=== PATIENT | male | born 1930 | race Caucasian/White ===

== ENCOUNTER → 2016-07-05 | Outpatient (CLI) | payer MEDICARE ==
[2016-07-05 20:22] LABS: ANION GAP 11 (5-19); BLOOD UREA NITROGEN 40 mg/dL (7-20); CALCIUM 9.7 mg/dL (8.4-10.2); CARBON DIOXIDE 22 mmol/L (22-30); CHLORIDE 105 mmol/L (98-107); CREATININE RESULT 0.96 mg/dL (0.52-1.25); GLUCOSE 108 mg/dL (75-110); POTASSIUM 4.9 mmol/L (3.6-5.0); SODIUM 138.4 mmol/L (137-145)
== END ==
LOC: OD 17:28
PROVIDERS: ATTEND Urology
DX: N17.8 Other acute kidney failure (principal)
CPT/HCPCS: 36415; 80048

== ENCOUNTER 2016-07-29 17:38 | Emergency (ER) | payer MEDICARE ==
--- NOTE | 2016-07-29 18:42 | ER Document Report ---
ED Medical Screen (RME) - General Chief Complaint: Foot Pain Stated Complaint: WOUND ON HEEL Time Seen by Provider: 07/29/16 18:35 Notes: 36-year-old male patient with prior stroke and left hemiparesis who usually walks with a 4 footed cane. Family noted a wound on the left heel that has been draining some. Not known how long it has been there. Has the appearance of a blood blister. Patient is not a diabetic. Does take Aggrenox. I have greeted and performed a rapid initial assessment of this patient. A comprehensive ED assessment and evaluation of the patient, analysis of test results and completion of the medical decision making process will be conducted by additional ED providers. TRAVEL OUTSIDE OF THE [place] IN LAST 30 DAYS: No - Related Data Allergies/Adverse Reactions: captopril [Captopril] Allergy (Intermediate, Verified 07/29/16 17:55) RASH Chloroxine [From Capitrol] Allergy (Mild, Verified 07/29/16 17:55) Past Medical History - Past Medical History Cardiac Medical History: Reports: Hx Heart Attack, Hx Hypercholesterolemia, Hx Hypertension Endocrine Medical History: Reports: Hx Diabetes Mellitus Type 2 Renal/ Medical History: Denies: Hx Peritoneal Dialysis Past Surgical History: Reports: Hx Cardiac Catheterization, Hx Open Heart Surgery, Hx Tonsillectomy - Immunizations Hx Diphtheria, Pertussis, Tetanus Vaccination: Yes Physical Exam - Vital signs Vitals: Temp Pulse Resp BP Pulse Ox 97.4 F 86 20 122/73 95 07/29/16 17:56 07/29/16 17:56 07/29/16 17:56 07/29/16 17:56 07/29/16 17:56 Course - Vital Signs Vital signs: Temp Pulse Resp BP Pulse Ox 97.4 F 86 20 122/73 95 07/29/16 17:56 07/29/16 17:56 07/29/16 17:56 07/29/16 17:56 07/29/16 17:56
[2016-07-29 19:18] LABS: ABSOLUTE EOSINOPHILS # (AUTO) 0.2 10^3/uL (0.0-0.6); ABSOLUTE LYMPHOCYTES (AUTO) 2.1 10^3/uL (0.5-4.7); ABSOLUTE MONOCYTES (AUTO) 0.6 10^3/uL (0.1-1.4); ABSOLUTE NEUT (AUTO) 6.6 10^3/uL (1.7-8.2); BASOPHILS % (AUTO) 0.3 % (0-2); EOSINOPHILS % (AUTO) 2.1 % (0-6); HEMATOCRIT 37.2 % (37.9-51.0); HEMOGLOBIN 11.8 g/dL (13.5-17.0); HGB HCT DIFFERENCE -1.8; LYMPHOCYTES % (AUTO) 22.4 % (13-45); MEAN CORPUSCULAR HEMOGLOBIN 30.2 pg (27.0-33.4); MEAN CORPUSCULAR HGB CONC 31.7 g/dL (32.0-36.0); MEAN CORPUSCULAR VOLUME 95 fl (80-97); MONOCYTES % (AUTO) 6.4 % (3-13); RED BLOOD COUNT 3.91 10^6/uL (4.35-5.55); RED CELL DISTRIBUTION WIDTH 13.5 % (11.5-14.0); SEGMENTED NEUTROPHILS % (AUTO) 68.8 % (42-78); WHITE BLOOD COUNT 9.5 10^3/uL (4.0-10.5)
--- NOTE | 2016-07-29 19:32 | RADIOLOGY REPORT (SQ) ---
EXAM DESCRIPTION: FOOT LEFT COMPLETE COMPLETED DATE/TIME: 07/29/2016 7:24 pm REASON FOR STUDY: left heel blood blister, Left hemiplegia COMPARISON: None. NUMBER OF VIEWS: Three views. TECHNIQUE: AP, lateral and oblique radiographic images acquired of the left foot. LIMITATIONS: None. FINDINGS: MINERALIZATION: Osteopenia. BONES: No acute fracture or dislocation. No worrisome bone lesions. JOINTS: No effusions. SOFT TISSUES: No significant soft tissue swelling. No radiopaque foreign body. OTHER: No other significant finding. IMPRESSION: NO RADIOGRAPHIC EVIDENCE OF ACUTE INJURY. TECHNICAL DOCUMENTATION: JOB ID: [id number] [employer]- All Rights Reserved
[2016-07-29 19:34] LABS: ALANINE AMINOTRANSFERASE 29 U/L (21-72); ALBUMIN 3.9 g/dL (3.5-5.0); ALKALINE PHOSPHATASE 108 U/L (38-126); ANION GAP 12 (5-19); ASPARTATE AMINO TRANSFERASE 33 U/L (17-59); BILIRUBIN,DIRECT 0.3 mg/dL (0.0-0.4); BILIRUBIN,TOTAL 0.4 mg/dL (0.2-1.3); BLOOD UREA NITROGEN 38 mg/dL (7-20); CARBON DIOXIDE 25 mmol/L (22-30); CHLORIDE 105 mmol/L (98-107); CREATININE RESULT 1.14 mg/dL (0.52-1.25); GLUCOSE 110 mg/dL (75-110); SODIUM 141.8 mmol/L (137-145)
--- NOTE | 2016-07-29 21:46 | ER Document Report ---
ED General - General Chief Complaint: Foot Pain Stated Complaint: FOOT PAIN Time Seen by Provider: 07/29/16 18:35 Notes: Patient is an 86-year-old male who presents with familial concern regarding an increasing left heel wound. 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 His family does take care of him at home and has noted that the wound appears to be worsening over the last several weeks. They presented today due to some blistering of the area. They have not seen the primary care doctor regarding today's concerns. Denies any drainage or spreading redness from the area. The patient has not had any fever or constitutional symptoms. TRAVEL OUTSIDE OF THE [place] IN LAST 30 DAYS: No - Related Data Allergies/Adverse Reactions: captopril [Captopril] Allergy (Intermediate, Verified 07/29/16 17:55) RASH Chloroxine [From Capitrol] Allergy (Mild, Verified 07/29/16 17:55) Past Medical History - General Information source: Relative Cannot obtain history due to: Dementia - Social History Smoking Status: Never Smoker Chew tobacco use (# tins/day): No Frequency of alcohol use: None Drug Abuse: None Lives with: Family Family History: Reviewed & Not Pertinent Patient has suicidal ideation: No Patient has homicidal ideation: No - Past Medical History Cardiac Medical History: Reports: Hx Heart Attack, Hx Hypercholesterolemia, Hx Hypertension Endocrine Medical History: Reports: Hx Diabetes Mellitus Type 2 Renal/ Medical History: Denies: Hx Peritoneal Dialysis Past Surgical History: Reports: Hx Cardiac Catheterization, Hx Open Heart Surgery, Hx Tonsillectomy - Immunizations Hx Diphtheria, Pertussis, Tetanus Vaccination: Yes Review of Systems - Review of Systems -: Yes ROS unobtainable due to patient's medical condition Physical Exam - Vital signs Vitals: Temp Pulse Resp BP Pulse Ox 97.4 F 86 20 122/73 95 07/29/16 17:56 07/29/16 17:56 07/29/16 17:56 07/29/16 17:56 07/29/16 17:56 Interpretation: Normal Notes: PHYSICAL EXAMINATION: GENERAL: Frail, cachectic, no acute distress HEAD: Atraumatic, normocephalic. EYES: Pupils equal round and reactive to light, extraocular movements intact, sclera anicteric, conjunctiva are normal. ENT: nares patent, oropharynx clear without exudates. Moist mucous membranes. NECK: Normal range of motion, supple without lymphadenopathy LUNGS: Breath sounds clear to auscultation bilaterally and equal. No wheezes rales or rhonchi. HEART: Regular rate and rhythm without murmurs ABDOMEN: Soft, nontender, normoactive bowel sounds. No guarding, no rebound. No masses appreciated. EXTREMITIES: Normal range of motion, no pitting or edema. No cyanosis. NEUROLOGICAL: Left Hemiplegia. 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 Labs and x-ray are unremarkable without evidence of acute fracture or osteomyelitis. There is no evidence of associated infection of this chronic wound. It is demented and unable to provide meaningful history but his son at the bedside does relate that he is in bed 12-14 hours daily. I have encouraged the family to follow-up with the patient's primary care doctor as he likely needs a hospital bed, in-home services, and wound management. I have also referred to our wound care clinic for the left heel wound. The wound has been cleaned and dressed with a bulky, padded dressing here in the emergency department to try to prevent further breakdown. At this time will discharge with return precautions and follow-up recommendations. Verbal discharge instructions given a the bedside and opportunity for questions given. Medication warnings reviewed. Son is in agreement with this plan and has verbalized understanding of return precautions and the need for primary care follow-up in the next 24-72 hours. - Vital Signs Vital signs: Temp Pulse Resp BP Pulse Ox 97.4 F 86 20 185/94 H 85 L 07/29/16 17:56 07/29/16 17:56 07/29/16 17:56 07/29/16 22:00 07/29/16 22:15 - Laboratory Result Diagrams: 07/29/16 19:06 07/29/16 19:06 Laboratory results interpreted by me: 07/29/16 07/29/16 19:06 19:06 RBC 3.91 L Hgb 11.8 L Hct 37.2 L MCHC 31.7 L BUN 38 H - Diagnostic Test Radiology reviewed: Image reviewed, Reports reviewed Radiology results interpreted by me: 07/29/16 21:44 Left foot: No acute fracture or evidence of bony lesions Discharge - Discharge Clinical Impression: Hemiplegia affecting left nondominant side Qualifiers: Hemiplegia type: unspecified type Hemiplegia etiology: cerebrovascular Cerebrovascular disease type: unspecified type Qualified Code(s): I69.954 - Hemiplegia and hemiparesis following unspecified cerebrovascular disease affecting left non-dominant side Condition: Good Disposition: HOME, SELF-CARE Additional Instructions: Please follow-up with your primary care doctor as soon as possible to schedule improved in-home services for your father's mobility difficulties. Please keep the heel off of the bed surface to prevent further breakdown of the wound. Keep dressed with a bulky, padded dressing. Please follow-up with wound management at your earliest ability. Please return if the wound begins to have a foul odor, have purulent drainage, he noticed spreading redness from the area , or if he develops a fever greater than 100.4F. Referrals: MELISSA GALAN MD [Primary Care Provider] - Follow up as needed KAMARI OCHOA MD [ACTIVE STAFF] - Follow up as needed
[2016-07-29 22:25] VITALS: BP 185/94
== END 2016-07-29 22:24 | disposition home or self-care (01) ==
LOC: ER 17:38
DX: I69.954 Hemiplegia and hemiparesis following unspecified cerebrovascular disease affecting left non-dominant side (principal); M79.672 Pain in left foot
CPT/HCPCS: 36415; 80053; 85025; 99283

== ENCOUNTER 2016-08-15 14:15 | Emergency (ER) | payer MEDICARE ==
[2016-08-15] MEDS ORDERED: NORMAL SALINE 1000 ML 1,000 ML IV PRN (14:52)
--- NOTE | 2016-08-15 14:53 | ER Document Report ---
ED Medical Screen (RME) - General Chief Complaint: Shortness Of Breath Stated Complaint: RAPID HEART RATE,LEFT FOOT SWELLING Time Seen by Provider: 08/15/16 14:51 Mode of Arrival: Wheelchair Information source: Relative TRAVEL OUTSIDE OF THE [place] IN LAST 30 DAYS: No - HPI Patient complains to provider of: rapid heart rate Notes: 08/15/16 14:52 Patient is an 86-year-old male brought to the emergency room by son for complaints of rapid heart rate that he first noticed on last week, when his heart rate was 107, it is been up above 95 since then, he has had difficulty swallowing and throat pain, has had decreased p.o. intake over the past few days, and some vomiting a few days ago, he has had a nonproductive cough, no diarrhea, no fevers - Related Data Allergies/Adverse Reactions: captopril [Captopril] Allergy (Intermediate, Verified 08/15/16 14:24) RASH Chloroxine [From Capitrol] Allergy (Mild, Verified 08/15/16 14:24) Past Medical History - Past Medical History Cardiac Medical History: Reports: Hx Heart Attack, Hx Hypercholesterolemia, Hx Hypertension Endocrine Medical History: Reports: Hx Diabetes Mellitus Type 2 Renal/ Medical History: Denies: Hx Peritoneal Dialysis Past Surgical History: Reports: Hx Cardiac Catheterization, Hx Open Heart Surgery, Hx Tonsillectomy - Immunizations Hx Diphtheria, Pertussis, Tetanus Vaccination: Yes Physical Exam - Vital signs Vitals: Temp Pulse Resp BP Pulse Ox 97.9 F 94 20 114/60 98 08/15/16 14:24 08/15/16 14:24 08/15/16 14:24 08/15/16 14:24 08/15/16 14:24 Course - Vital Signs Vital signs: Temp Pulse Resp BP Pulse Ox 97.9 F 94 20 114/60 98 08/15/16 14:24 08/15/16 14:24 08/15/16 14:24 08/15/16 14:24 08/15/16 14:24
--- NOTE | 2016-08-15 15:18 | RADIOLOGY REPORT (SQ) ---
EXAM DESCRIPTION: CHEST SINGLE VIEW COMPLETED DATE/TIME: 08/15/2016 3:08 pm REASON FOR STUDY: cough COMPARISON: 09/29/2012 EXAM PARAMETERS: NUMBER OF VIEWS: One view. TECHNIQUE: Single frontal radiographic view of the chest acquired. RADIATION DOSE: NA LIMITATIONS: None. FINDINGS: LUNGS AND PLEURA: No opacities, masses or pneumothorax. No pleural effusion. MEDIASTINUM AND HILAR STRUCTURES: No masses. Contour normal. HEART AND VASCULAR STRUCTURES: Heart normal in size. Normal vasculature. BONES: No acute findings. HARDWARE: Sternotomy wires. OTHER: No other significant finding. IMPRESSION: NO ACUTE RADIOGRAPHIC FINDING IN THE CHEST. TECHNICAL DOCUMENTATION: JOB ID: [id number]
[2016-08-15 15:45] LABS: ABSOLUTE BASOPHILS # (AUTO) 0.1 10^3/uL (0.0-0.2); ABSOLUTE EOSINOPHILS # (AUTO) 0.2 10^3/uL (0.0-0.6); ABSOLUTE LYMPHOCYTES (AUTO) 2.1 10^3/uL (0.5-4.7); ABSOLUTE MONOCYTES (AUTO) 0.7 10^3/uL (0.1-1.4); ABSOLUTE NEUT (AUTO) 7.7 10^3/uL (1.7-8.2); BASOPHILS % (AUTO) 0.6 % (0-2); EOSINOPHILS % (AUTO) 2.1 % (0-6); HEMATOCRIT 37.7 % (37.9-51.0); HEMOGLOBIN 12.2 g/dL (13.5-17.0); HGB HCT DIFFERENCE -1.1; LYMPHOCYTES % (AUTO) 19.8 % (13-45); MEAN CORPUSCULAR HEMOGLOBIN 30.5 pg (27.0-33.4); MEAN CORPUSCULAR HGB CONC 32.3 g/dL (32.0-36.0); MEAN CORPUSCULAR VOLUME 94 fl (80-97); MONOCYTES % (AUTO) 6.2 % (3-13); RED BLOOD COUNT 4.01 10^6/uL (4.35-5.55); RED CELL DISTRIBUTION WIDTH 13.1 % (11.5-14.0); SEGMENTED NEUTROPHILS % (AUTO) 71.3 % (42-78); WHITE BLOOD COUNT 10.8 10^3/uL (4.0-10.5)
[2016-08-15 15:53] LABS: ALANINE AMINOTRANSFERASE 33 U/L (21-72); ALBUMIN 3.8 g/dL (3.5-5.0); ALKALINE PHOSPHATASE 101 U/L (38-126); ANION GAP 17 (5-19); ASPARTATE AMINO TRANSFERASE 44 U/L (17-59); BILIRUBIN,DIRECT 0.4 mg/dL (0.0-0.4); BILIRUBIN,TOTAL 0.5 mg/dL (0.2-1.3); BLOOD UREA NITROGEN 67 mg/dL (7-20); CALCIUM 10.3 mg/dL (8.4-10.2); CARBON DIOXIDE 23 mmol/L (22-30); CHLORIDE 110 mmol/L (98-107); CREATINE KINASE 249 U/L (55-170); CREATININE RESULT 1.25 mg/dL (0.52-1.25); GLUCOSE 114 mg/dL (75-110); POTASSIUM 4.2 mmol/L (3.6-5.0); SODIUM 149.8 mmol/L (137-145); TOTAL PROTEIN 8.3 g/dL (6.3-8.2)
[2016-08-15 16:04] LABS: CREATINE KINASE MB 2.26 ng/mL (<4.55)
[2016-08-15 16:17] LABS: TROPONIN I 0.037 ng/mL
[2016-08-15] MEDS ORDERED: NYSTATIN/DEXAMETH/DIPHEN SUSP 120 ML PO ONE (17:59)
--- NOTE | 2016-08-15 18:09 | ER Document Report ---
ED Respiratory Problem - General Mode of Arrival: Wheelchair Information source: Relative TRAVEL OUTSIDE OF THE [place] IN LAST 30 DAYS: No <BRADEN PALMA - Last Filed: 08/15/16 18:54> <ADELAIDA GUZMAN - Last Filed: 08/16/16 01:30> - General Chief Complaint: Shortness Of Breath Stated Complaint: RAPID HEART RATE,LEFT FOOT SWELLING Time Seen by Provider: 08/15/16 14:51 Notes: Patient is an 86 year old male who presents to the ER today with son and for 2 days of shortness of breath, 5 days of heart rate faster than normal, up to 104 bpm. Patient has no reason for shortness of breath and says that he does not have a history of asthma or COPD. Patient also has had some throat pain and has not been wanting to eat over the past week her son. They state that he does take thickened liquids due to risk of aspiration, they do have to thicken everything he drinks. He has not been wanting to eat any solids over the past week but has been taking his liquids. son denies that he has had any fever, chills, states the cough is not "that bad." And also complains that he is having some swelling to the left foot. Patient does have a history of this and is on Lasix 20 mg daily but then states that the left foot started swelling recently. (BRADEN PALMA) - Related Data Allergies/Adverse Reactions: captopril [Captopril] Allergy (Intermediate, Verified 08/15/16 18:22) RASH Chloroxine [From Capitrol] Allergy (Mild, Verified 08/15/16 18:22) Past Medical History - General Information source: Relative - Social History Smoking Status: Unknown if Ever Smoked Family History: Reviewed & Not Pertinent Patient has suicidal ideation: No Patient has homicidal ideation: No - Past Medical History Cardiac Medical History: Reports: Hx Heart Attack, Hx Hypercholesterolemia, Hx Hypertension Endocrine Medical History: Reports: Hx Diabetes Mellitus Type 2 Renal/ Medical History: Denies: Hx Peritoneal Dialysis Past Surgical History: Reports: Hx Cardiac Catheterization, Hx Open Heart Surgery, Hx Tonsillectomy - Immunizations Hx Diphtheria, Pertussis, Tetanus Vaccination: Yes <BRADEN PALMA - Last Filed: 08/15/16 18:54> Review of Systems - Review of Systems Constitutional: No symptoms reported EENT: No symptoms reported Cardiovascular: See HPI Respiratory: See HPI Gastrointestinal: No symptoms reported Genitourinary: No symptoms reported Male Genitourinary: No symptoms reported Musculoskeletal: No symptoms reported Skin: See HPI Hematologic/Lymphatic: No symptoms reported Neurological/Psychological: No symptoms reported <BRADEN PALMA - Last Filed: 08/15/16 18:54> Physical Exam <BRADEN PALMA - Last Filed: 08/15/16 18:54> <ADELAIDA GUZMAN - Last Filed: 08/16/16 01:30> - Vital signs Vitals: Temp Pulse Resp BP Pulse Ox 97.9 F 94 20 114/60 98 08/15/16 14:24 08/15/16 14:24 08/15/16 14:24 08/15/16 14:24 08/15/16 14:24 - Notes Notes: PHYSICAL EXAMINATION: GENERAL: demented, but in no acute distress. HEAD: Atraumatic, normocephalic. EYES: Pupils equal round and reactive to light, extraocular movements intact, sclera anicteric, conjunctiva are normal. ENT: oropharynx erythematous with white patches on tongue and soft palate, unable to be scraped off. Moist mucous membranes. airway patent NECK: Normal range of motion, supple without lymphadenopathy LUNGS: CTAB and equal. No wheezes rales or rhonchi. HEART: Regular rate and rhythm without murmurs ABDOMEN: Soft, no tenderness. No guarding, no rebound BACK: no vertebral tenderness, normal ROM GI/: no CVA tenderness EXTREMITIES: Normal range of motion, 1+ pitting edema to left dorsal foot. No cyanosis. NEUROLOGICAL: Cranial nerves grossly intact. Normal sensory/motor exams. PSYCH: Normal mood, normal affect. SKIN: Warm, Dry, normal turgor, pressure ulcer to left heel (BRADEN PALMA) Course - Laboratory Result Diagrams: 08/15/16 15:24 08/15/16 15:24 <BRADEN PALMA - Last Filed: 08/15/16 18:54> - Laboratory Result Diagrams: 08/15/16 15:24 08/15/16 15:24 <ADELAIDA GUZMAN - Last Filed: 08/16/16 01:30> - Re-evaluation Re-evalutation: 08/15/16 19:12 Part is unremarkable today except for some hypernatremia, CTA has been ordered due to patient's tachycardia and shortness of breath, first troponin is mildly elevated, however patient has a history of this, with patient history of heart attacks and multiple strokes however second troponin was ordered. At this time care has been handed over to LENORA Jones (BRADEN PALMA) Report received from braden peng. pt position adjusted. 08/16/16 Son reports patient seems more comfortable since tylenol. Attempted to obtain urine from patient, son does not want father to receive straight cath. Will continue to wait for patient to void. He has received 1 liter fluids. 08/16/16 01:28 Son reports patient is drinking more since magic mouthwash. CTA negative, Troponin increased from 0.037 to 0.050. no c/o chest pain. No SOB noted. UA with sp gravity 1.29, BUN 67. Dr. Nick per [facility] guidelines he agrees with discharge for patient treat for thrush encourage fluids. Discussed indeterminate cardiac enzymes with patient' s son. Son agrees that patient is not a candidate for cardiac interventions. Son was instructed on the importance of pushing fluids with his father keeping him well-hydrated. Son was instructed on Magic mouthwash. 08/16/16 01:30 (ADELAIDA GUZMAN) - Vital Signs Vital signs: Temp Pulse Resp BP Pulse Ox 97.9 F 94 27 H 134/61 H 95 08/15/16 14:24 08/15/16 14:24 08/15/16 21:00 08/15/16 19:02 08/15/16 21:00 - Laboratory Laboratory results interpreted by me: 08/15/16 08/15/16 08/15/16 15:24 15:24 23:45 WBC 10.8 H RBC 4.01 L Hgb 12.2 L Hct 37.7 L Sodium 149.8 H Chloride 110 H BUN 67 H Est GFR (Non-Af Amer) 55 L Glucose 114 H Calcium 10.3 H Creatine Kinase 249 H Total Protein 8.3 H Ur Leukocyte Esterase SMALL H Urine Ascorbic Acid 40 H Discharge <BRADEN PALMA - Last Filed: 08/15/16 18:54> <ADELAIDA GUZMAN - Last Filed: 08/16/16 01:30> - Discharge Clinical Impression: Shortness of breath, Thrush, oral Condition: Stable Disposition: HOME, SELF-CARE Instructions: Oral Thrush ([facility]), Dehydration ([facility]) Additional Instructions: *You have been evaluated for shortness of breath, increased heart rate, dehydration *The CTA was negative for an acute process *Follow up with Dr Rain tomorrow for recheck *Keep your father well hydrated *Magic mouthwash 5 ml four times a day *Return to ED for worsening condition, changes, needs
--- NOTE | 2016-08-15 18:53 | EKG REPORT ---
SEVERITY:- ABNORMAL ECG - SINUS RHYTHM VENTRICULAR PREMATURE COMPLEX INFERIOR INFARCT, AGE INDETERMINATE ANTEROLATERAL INFARCT, AGE INDETERMINATE BORDERLINE PROLONGED QT INTERVAL : Confirmed by: Maxime Call 15-Aug-2016 18:52:38
[2016-08-15] MEDS ORDERED: ACETAMINOPHEN 325 MG TABLET PO ONE (19:11)
--- NOTE | 2016-08-15 22:41 | RADIOLOGY REPORT (SQ) ---
EXAM DESCRIPTION: CTA CHEST COMPLETED DATE/TIME: 08/15/2016 10:28 pm REASON FOR STUDY: tachycardia, sob, no respiratory hx COMPARISON: None. TECHNIQUE: CT scan of the chest performed using helical scanning technique with dynamic intravenous contrast injection. Images reviewed with lung, soft tissue and bone windows. Reconstructed coronal and sagittal MPR images reviewed. Additional 3 dimensional post-processing performed to develop Maximal Intensity Projection images (IA P). All images stored on PACS. All CT scanners at this facility use dose modulation, iterative reconstruction, and/or weight based d osing when appropriate to reduce radiation dose to as low as reasonably achievable (ALARA). [facility]: Dose Right [facility]: CareDose [facility]: Dose Right [facility]: Teradose 4D [facility]: EquityLancer CONTRAST TYPE AND DOSE: contrast/concentration: Isovue 370.00 mg/ml; Total Contrast Delivered: 62.0 ml; Total Saline Delivered: 75.0 ml RENAL FUNCTION: BUN 67 creatinine 1.25. RADIATION DOSE: Up-to-date CT equipment and radiation dose reduction techniques were employed. CTDIv ol: 14.3 - 19.8 mGy. DLP: 469 mGy-cm. . LIMITATIONS: None. FINDINGS: LUNGS AND PLEURA: No masses, infiltrates, pneumothorax. No pleural effusions, calcificati ons. AORTA AND GREAT VESSELS: No aneurysm or dissection. HEART: No pericardial effusion. PULMONARY ARTERIES: No emboli visualized in the main pulmonary arteries or the segmental branches. HILAR AND MEDIASTINAL STRUCTURES: No identified masses or abnormal nodes. HARDWARE: None in the chest. UPPER ABDOMEN: No significant findings. Limited exam. THYROID AND OTHER SOFT TISSUES: No masses. No adenopathy. BONES: No acute or significant finding. 3D MIPS: Confirm above findings. OTHER: No other significant finding. IMPRESSION: NORMAL CTA OF THE CHEST. NO PULMONARY EMBOLI. TECHNICAL DOCUMENTATION: JOB ID: [id number] Quality ID # [id number]: Final reports with documentation of one or more dose reduction techniques (e.g., Au tomated exposure control, adjustment of the mA and/or kV according to patient size, use of iterative reconstruction technique) 2010 [email or web address]- All Rights Reserved
[2016-08-16 00:19] LABS: APPEARANCE,URINE CLOUDY; BILIRUBIN,URINE NEGATIVE (NEGATIVE); GLUCOSE, URINE NEGATIVE (NEGATIVE); KETONES,URINE NEGATIVE (NEGATIVE); LEUKOCYTE ESTERASE,URINE SMALL (NEGATIVE); NITRITE,URINE NEGATIVE (NEGATIVE); PROTEIN,URINE NEGATIVE (NEGATIVE); URINE SPECIFIC GRAVITY 1.029; UROBILINOGEN,URINE NEGATIVE mg/dL (<2.0)
[2016-08-16 02:11] VITALS: BP 136/65
== END 2016-08-16 02:35 | disposition home or self-care (01) ==
LOC: ER 14:15
DX: R06.02 Shortness of breath (principal); B37.0 Candidal stomatitis; R60.0 Localized edema; R07.0 Pain in throat; R05 Cough; R00.0 Tachycardia, unspecified; R74.8 Abnormal levels of other serum enzymes; E87.0 Hyperosmolality and hypernatremia; L89.629 Pressure ulcer of left heel, unspecified stage; I25.2 Old myocardial infarction; I10 Essential (primary) hypertension; F03.90 Unspecified dementia, unspecified severity, without behavioral disturbance, psychotic disturbance, mood disturbance, and anxiety; E11.9 Type 2 diabetes mellitus without complications; Z79.899 Other long term (current) drug therapy; Z88.3 Allergy status to other anti-infective agents; Z86.73 Personal history of transient ischemic attack (TIA), and cerebral infarction without residual deficits
CPT/HCPCS: 93005; 99285; 96360; 36415; 87040; 87086; 82553; 82550; 85025; 80053; 81001; 84484; 71010; 71275; 93010; A9270 ×2; J7030; J3490

== ENCOUNTER 2016-08-20 08:14 | Inpatient (IN) | payer MEDICARE ==
[2016-08-20] MEDS ORDERED: NORMAL SALINE 1000 ML 1,000 ML IV ONE ×2 (08:34→10:49)
--- NOTE | 2016-08-20 08:49 | ER Document Report ---
ED General - General Stated Complaint: VOMITING/WEAKNESS Time Seen by Provider: 08/20/16 08:22 Mode of Arrival: Ambulatory Information source: Patient Notes: 86-year-old male with history of recent diagnosis for thrush presents with complaints of continued thrush decreased oral intake for episodes of vomiting yesterday. Patient denies any fevers or chills Son notes patient does not ambulate and this is his baseline speech and presentation mentation yanez TRAVEL OUTSIDE OF THE [place] IN LAST 30 DAYS: No - HPI Onset: Last week Onset/Duration: Persistent Quality of pain: No pain Severity: Mild Pain Level: Denies Associated symptoms: Nausea, Vomiting, Weakness Exacerbated by: Denies Relieved by: Denies Similar symptoms previously: Yes Recently seen / treated by doctor: Yes - Related Data Allergies/Adverse Reactions: captopril [Captopril] Allergy (Intermediate, Verified 08/15/16 18:22) RASH Chloroxine [From Capitrol] Allergy (Mild, Verified 08/15/16 18:22) Past Medical History - Social History Smoking Status: Never Smoker Cigarette use (# per day): No Chew tobacco use (# tins/day): No Smoking Education Provided: No Family History: Reviewed & Not Pertinent - Past Medical History Cardiac Medical History: Reports: Hx Heart Attack, Hx Hypercholesterolemia, Hx Hypertension Endocrine Medical History: Reports: Hx Diabetes Mellitus Type 2 Renal/ Medical History: Denies: Hx Peritoneal Dialysis Past Surgical History: Reports: Hx Cardiac Catheterization, Hx Open Heart Surgery, Hx Tonsillectomy - Immunizations Hx Diphtheria, Pertussis, Tetanus Vaccination: Yes Review of Systems - Review of Systems Notes: REVIEW OF SYSTEMS: CONSTITUTIONAL : Denies fever, chills, or sweats. Denies recent illness. EENT: Denies eye, ear, throat, or mouth pain or symptoms. Denies nasal or sinus congestion or discharge. Admits to decreased ability to swallow secondary to pain CARDIOVASCULAR: Denies chest pain. Denies palpitations or racing or irregular heart beat. Denies ankle edema. RESPIRATORY: Denies cough, cold, or chest congestion. Denies shortness of breath, difficulty breathing, or wheezing. GASTROINTESTINAL: Admits to decreased oral intake nausea vomiting GENITOURINARY: Denies difficulty urinating, painful urination, burning, frequency, blood in urine, or discharge. MUSCULOSKELETAL: Denies back or neck pain or stiffness. Denies joint pain or swelling. SKIN: Denies rash, lesions or sores. HEMATOLOGIC : Denies easy bruising or bleeding. LYMPHATIC: Denies swollen, enlarged glands. NEUROLOGICAL: Denies confusion or altered mental status. Denies passing out or loss of consciousness. Denies dizziness or lightheadedness. Denies headache. Denies weakness or paralysis or loss of use of either side. Denies problems with gait or speech. Denies sensory loss, numbness, or tingling. Denies seizures. PSYCHIATRIC: Denies anxiety or stress. Denies depression, suicidal ideation, or homicidal ideation. ALL OTHER SYSTEMS REVIEWED AND NEGATIVE. Dictation was performed using [employer] voice recognition software PHYSICAL EXAMINATION: GENERAL: Cachectic frail appearing male contracted HEAD: Atraumatic, normocephalic. EYES: Pupils equal round and reactive to light, extraocular movements intact, sclera anicteric, conjunctiva are normal. ENT: Thrush noted dry tongue NECK: Normal range of motion, supple without lymphadenopathy LUNGS: Breath sounds clear to auscultation bilaterally and equal. No wheezes rales or rhonchi. HEART: Tachycardic ABDOMEN: Soft, nontender, nondistended abdomen. No guarding, no rebound. No masses appreciated. Musculoskeletal: Normal range of motion, no pitting or edema. No cyanosis. NEUROLOGICAL: Baseline mentation per son PSYCH: Normal mood, normal affect. SKIN: Warm, Dry, normal turgor, no rashes or lesions noted. Course - Re-evaluation Re-evalutation: 08/20/16 08:49 Patient was noted to be hypoxic on arrival, son notes he has been hypoxic intermittently but when he takes a deep breath his O2 sats go up, patient had a recent CTA x-ray on last visit and some questions any further imaging however since he was hypoxic here I do believe he requires an x-ray lab work and IV fluid 08/20/16 10:19 worsening hypernatremia , acute renal failure , elevated lactic acid noted. will hydrate and admit patient - Laboratory Result Diagrams: 08/20/16 09:15 08/20/16 09:15 Laboratory results interpreted by me: 08/20/16 08/20/16 08/20/16 09:15 09:15 09:15 WBC 13.1 H RBC 3.98 L Hgb 11.7 L Hct 36.9 L MCHC 31.8 L Seg Neutrophils % 83.6 H Lymphocytes % 11.1 L Absolute Neutrophils 11.0 H Sodium 152.7 H Chloride 113 H BUN 60 H Creatinine 1.56 H Est GFR ( Amer) 51 L Est GFR (Non-Af Amer) 42 L Glucose 148 H Lactic Acid 2.7 H Calcium 10.4 H - Diagnostic Test Radiology reviewed: Image reviewed, Reports reviewed Critical Care Note - Critical Care Note Total time excluding time spent on procedures (mins): 34 Comments: 34 minutes of critical care time spent in direct contact evaluating and reevaluating the patient, treating symptoms, reviewing labs and studies and speaking with family and consultants excluding any procedures Discharge - Discharge Clinical Impression: Hypernatremia, Dehydration Acute renal failure Qualifiers: Acute renal failure type: unspecified Qualified Code(s): N17.9 - Acute kidney failure, unspecified Urinary tract infection Qualifiers: Urinary tract infection type: acute cystitis Hematuria presence: without hematuria Qualified Code(s): N30.00 - Acute cystitis without hematuria Condition: Fair Disposition: ADMITTED INPATIENT Admitting Provider: Koffi Unit Admitted: Medical Floor
--- NOTE | 2016-08-20 09:20 | RADIOLOGY REPORT (SQ) ---
EXAM DESCRIPTION: CHEST SINGLE VIEW COMPLETED DATE/TIME: 08/20/2016 9:03 am REASON FOR STUDY: hypoxemia COMPARISON: 08/15/[address] chest. NUMBER OF VIEWS: One view. TECHNIQUE: Single frontal radiographic view of the chest acquired. LIMITATIONS: None. FINDINGS: LUNGS AND PLEURA: Mild right lower lobe volume loss. Minimal elevation right hemidiaphrag m, chronic. Lungs otherwise generally clear. No pneumothorax or developing pleural fluid. No new i nfiltrates. MEDIASTINUM AND HILAR STRUCTURES: Stable contours. Previous median sternotomy. No mass evident. HEART AND VASCULAR STRUCTURES: Stable heart size without evidence of failure. BONES: Osteopenic. No gross fracture. HARDWARE: None in the chest. OTHER: No other significant finding. IMPRESSION: Stable chest without acute cardiopulmonary disease evident. TECHNICAL DOCUMENTATION: JOB ID: [id number] [employer]- All Rights Reserved
[2016-08-20 09:40] LABS: VENOUS BLOOD BASE EXCESS -0.3 mmol/L; VENOUS BLOOD HCO3 25.8 mmol/L (20-32); VENOUS BLOOD PCO2 47.7 mmHg (35-63); VENOUS BLOOD PH 7.35 (7.30-7.42)
[2016-08-20 09:41] LABS: ABSOLUTE LYMPHOCYTES (AUTO) 1.5 10^3/uL (0.5-4.7); ABSOLUTE MONOCYTES (AUTO) 0.7 10^3/uL (0.1-1.4); BASOPHILS % (AUTO) 0.1 % (0-2); EOSINOPHILS % (AUTO) 0.1 % (0-6); HEMATOCRIT 36.9 % (37.9-51.0); HEMOGLOBIN 11.7 g/dL (13.5-17.0); HGB HCT DIFFERENCE -1.8; LYMPHOCYTES % (AUTO) 11.1 % (13-45); MEAN CORPUSCULAR HEMOGLOBIN 29.5 pg (27.0-33.4); MEAN CORPUSCULAR HGB CONC 31.8 g/dL (32.0-36.0); MEAN CORPUSCULAR VOLUME 93 fl (80-97); MONOCYTES % (AUTO) 5.1 % (3-13); RED BLOOD COUNT 3.98 10^6/uL (4.35-5.55); RED CELL DISTRIBUTION WIDTH 13.5 % (11.5-14.0); SEGMENTED NEUTROPHILS % (AUTO) 83.6 % (42-78); WHITE BLOOD COUNT 13.1 10^3/uL (4.0-10.5)
[2016-08-20 09:48] LABS: PROTHROMBIN TIME 15.3 SEC (11.4-15.4)
[2016-08-20 10:00] LABS: ALANINE AMINOTRANSFERASE 29 U/L (21-72); ALBUMIN 3.6 g/dL (3.5-5.0); ALKALINE PHOSPHATASE 105 U/L (38-126); ANION GAP 18 (5-19); ASPARTATE AMINO TRANSFERASE 37 U/L (17-59); BILIRUBIN,DIRECT 0.4 mg/dL (0.0-0.4); BILIRUBIN,TOTAL 0.6 mg/dL (0.2-1.3); BLOOD UREA NITROGEN 60 mg/dL (7-20); CALCIUM 10.4 mg/dL (8.4-10.2); CARBON DIOXIDE 22 mmol/L (22-30); CHLORIDE 113 mmol/L (98-107); CREATININE RESULT 1.56 mg/dL (0.52-1.25); GLUCOSE 148 mg/dL (75-110); POTASSIUM 4.4 mmol/L (3.6-5.0); SODIUM 152.7 mmol/L (137-145); TOTAL PROTEIN 7.8 g/dL (6.3-8.2)
[2016-08-20] MEDS ORDERED: CEFTRIAXONE 1 GM/D5W RTU 50 ML IV ONE (10:21)
[2016-08-20 11:00] LABS: APPEARANCE,URINE SLIGHTLY-CLOUDY; BILIRUBIN,URINE NEGATIVE (NEGATIVE); GLUCOSE, URINE NEGATIVE (NEGATIVE); KETONES,URINE NEGATIVE (NEGATIVE); LEUKOCYTE ESTERASE,URINE SMALL (NEGATIVE); NITRITE,URINE NEGATIVE (NEGATIVE); PROTEIN,URINE NEGATIVE (NEGATIVE); URINE SPECIFIC GRAVITY 1.015; UROBILINOGEN,URINE NEGATIVE mg/dL (<2.0)
[2016-08-20] MEDS ORDERED: MORPHINE SULFATE 10 MG/ML INJ IV ONE (12:03)
--- NOTE | 2016-08-20 13:42 | EKG REPORT ---
SEVERITY:- ABNORMAL ECG - SINUS TACHYCARDIA NONSPECIFIC INTRAVENTRICULAR CONDUCTION DELAY PROBABLE LVH WITH SECONDARY REPOL ABNRM : Confirmed by: Maxime Call 20-Aug-2016 13:41:59
[2016-08-20] MEDS ORDERED: DEXTROSE 5%-WATER 1000 ML 1,000 ML IV PRN (14:10)
[2016-08-20] MEDS ORDERED: ACETAMINOPHEN 325 MG TABLET PO PRN ×2 (17:25→18:49)
[2016-08-20] MEDS ORDERED: ACETAMINOPHEN 325 MG TABLET ONE (17:48)
[2016-08-20] MEDS ORDERED: FLUCONAZOLE 400 MG/NS RTU 200 ML IV ONE (19:39)
[2016-08-20] MEDS ORDERED: ERYTHROMYCIN 0.5% OPH OINTMENT 3.5 GM TUBE OU PRN (19:41)
[2016-08-20] MEDS ORDERED: GLUCAGON,HUMAN RECOMB 1 MG INJ SUBCUT PRN (19:44)
[2016-08-20] MEDS ORDERED: DEXTROSE 40% GEL 15 GM TUBE PO PRN ×2 (19:44)
[2016-08-20] MEDS ORDERED: DEXTROSE 50%-WATER 25 GM/50 ML DISP.SYRIN IV PRN ×2 (19:44)
[2016-08-20] MEDS ORDERED: NITROGLYCERIN 0.4 MG/TAB 25 TAB/BOTTLE SL PRN (19:45)
--- NOTE | 2016-08-20 20:25 | PDOC H&P ---
History of Present Illness Admission Date/PCP: 08/20/16 10:28 FRANCISCO BYNUM MD Patient complains of: Difficulty with swallowing and vomiting History of Present Illness: NYLA POLLOCK is a 86 year old male known to my practice who as brought to the ED by family due to worsening difficulty with swallowing. Son reported that patient have been vomiting food given to him almost immediately upon swallowing. He ws seem at the ED recently and prescribed Magic Mouth wash due to whitish lesion seen in his mouth. Son reported difficulty with administration of the medicine since procured. Patient has history of recurrent stroke with dysphasia. Son denied any significant aspiration, fever or chills. He has been on honey thicken fluid at home as precautions for aspiration following his stroke. 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 Past Medical History Cardiac Medical History: Reports: Myocardial Infarction, Hyperlipidema, Hypertension Endocrine Medical History: Reports: Diabetes Mellitus Type 2 Past Surgical History Past Surgical History: Reports: Cardiac Catheterization, Tonsillectomy Social History Smoking Status: Never Smoker Frequency of Alcohol Use: None Hx Recreational Drug Use: No Drugs: None Hx Prescription Drug Abuse: No - Advance Directive Resuscitation Status: Do Not Resuscitate - I had extensive discussion with son and daughter at bedside during my evaluation. The family at this time decided to make patient a DNR. This status will be maintained upon discharge from the hospital. Family History Family History: Reviewed & Not Pertinent Parental Family History Reviewed: Yes Children Family History Reviewed: Yes Sibling(s) Family History Reviewed.: Yes Medication/Allergy Home Medications: Acetaminophen [Tylenol Extra Strength 500 mg Tablet] 1,000 mg PO Q4HP PRN Aspirin [Ecotrin 325 mg EC Tablet] 325 mg PO BID 08/20/16 Atorvastatin Calcium [Lipitor 80 mg Tablet] 80 mg PO QHS 08/20/16 Collagenase Clostridium Hist. [Santyl Ointment 30 gm] 1 applic TOP DAILY Dipyridamole [Persantine 25 mg Tablet] 75 mg PO BID 08/20/16 Erythromycin Base [Erythromycin] 1 inch OU DAILYP PRN 08/20/16 Finasteride [Proscar 5 mg Tablet] 5 mg PO DAILY 08/20/16 Furosemide [Lasix 20 mg Tablet] 20 mg PO QAM 08/20/16 Levothyroxine Sodium [Synthroid] 75 mcg PO QAM 08/20/16 Metoprolol Succinate [Toprol Xl 25 mg Tab.sr] 25 mg PO QAM 08/20/16 Nitroglycerin [Nitrostat] 0.4 mg PO Q5M 08/20/16 Nut.tx.gluc.intoler,Lac-Fr,Soy [Glucerna] 8 oz PO TID 08/20/16 Omeprazole 20 mg PO QAM 08/20/16 Sennosides [Senna] 8.6 mg PO QAM 08/20/16 Starch [Thick-It] 1 packet PO MEALS 08/20/16 Tamsulosin HCl [Flomax 0.4 mg Cap.sr] 0.4 mg PO QPM 08/20/16 Trazodone HCl [Desyrel 50 mg Tablet] 25 mg PO QHS 08/20/16 Whey Protein Isolate [Beneprotein] 1 packet PO TID 08/20/16 Allergies/Adverse Reactions: captopril [Captopril] Allergy (Intermediate, Verified 08/20/16 14:51) RASH Chloroxine [From Capitrol] Allergy (Mild, Verified 08/20/16 14:51) Review of Systems ROS unobtainable: Due to mental status All systems: as per PMH Physical Exam Vital Signs: Temp Pulse Resp BP Pulse Ox 98.7 F 109 H 20 102/52 L 92 08/20/16 16:02 08/20/16 16:02 08/20/16 16:02 08/20/16 16:02 08/20/16 16:02 Intake & Output 08/19/16 08/20/16 08/21/16 06:59 06:59 06:59 Weight 47.9 kg General appearance: PRESENT: cooperative, disheveled, mild distress, thin Head exam: PRESENT: atraumatic, normocephalic Eye exam: PRESENT: conjunctiva pink, EOMI, PERRLA Mouth exam: PRESENT: moist - fairly Teeth exam: PRESENT: poor dentation Throat exam: PRESENT: post pharyngeal erythema - minimally no obvious oral thrush Respiratory exam: PRESENT: crackles - at lung bases, decreased breath sounds Cardiovascular exam: PRESENT: RRR. ABSENT: diastolic murmur, rubs, systolic murmur Vascular exam: PRESENT: normal capillary refill GI/Abdominal exam: PRESENT: normal bowel sounds, soft. ABSENT: distended, guarding, mass, organolmegaly, rebound, tenderness Rectal exam: PRESENT: deferred Extremities exam: ABSENT: pedal edema Neurological exam: PRESENT: altered Psychiatric exam: PRESENT: agitated - related to his dementia Skin exam: PRESENT: other - left heel pressure ulcer stage 3 Results Laboratory Results: 08/20/16 08/20/16 10:45 14:00 Lactic Acid 1.0 Urine Color YELLOW Urine Appearance SLIGHTLY-CLOUDY Urine pH 5.0 Ur Specific [place] 1.015 Urine Protein NEGATIVE Urine Glucose (UA) NEGATIVE Urine Ketones NEGATIVE Urine Blood NEGATIVE Urine Nitrite NEGATIVE Ur Leukocyte Esterase SMALL H Urine WBC (Auto) 13 Urine RBC (Auto) 1 Impressions: Chest X-Ray 08/20/16 08:34 IMPRESSION: Stable chest without acute cardiopulmonary disease evident. Assessment & Plan - Diagnosis (1) Acute renal failure Qualifiers: Acute renal failure type: unspecified Qualified Code(s): N17.9 - Acute kidney failure, unspecified Is this a current diagnosis for this admission?: YesPlan: See admitting physician orders. (2) Dehydration Is this a current diagnosis for this admission?: YesPlan: See admitting physician orders (3) Hypernatremia Is this a current diagnosis for this admission?: YesPlan: See admitting physician orders (4) UTI (urinary tract infection) Qualifiers: Urinary tract infection type: acute cystitis Hematuria presence: without hematuria Qualified Code(s): N30.00 - Acute cystitis without hematuria Is this a current diagnosis for this admission?: YesPlan: See admitting physician orders (5) Thrush, oral Is this a current diagnosis for this admission?: YesPlan: See admitting physician orders (6) Shortness of breath Plan: See admitting physician orders (7) HTN (hypertension) Qualifiers: Hypertension type: essential hypertension Qualified Code(s): I10 - Essential (primary) hypertension Is this a current diagnosis for this admission?: YesPlan: See admitting physician orders (8) HLD (hyperlipidemia) Qualifiers: Hyperlipidemia type: pure hypercholesterolemia Qualified Code(s): E78.00 - Pure hypercholesterolemia, unspecified; E78.0 - Pure hypercholesterolemia Is this a current diagnosis for this admission?: YesPlan: See admitting physician orders (9) CAD (coronary artery disease) Qualifiers: Coronary Disease-Associated Artery/Lesion type: [place] artery Associated angina: without angina Is this a current diagnosis for this admission?: YesPlan: See admitting physician orders (10) Old CT (myocardial infarction) Is this a current diagnosis for this admission?: YesPlan: See admitting physician orders (11) Dementia, multi-infarct Qualifiers: Dementia behavioral disturbance: without behavioral disturbance Qualified Code(s): F01.50 - Vascular dementia without behavioral disturbance Is this a current diagnosis for this admission?: YesPlan: See admitting physician orders - Time Time Spent: Greater than 70 Minutes Medications reviewed and adjusted accordingly: Yes Anticipated discharge: Home with Homehealth Within: Other - Inpatient Certification Based on my medical assessment, after consideration of the patient's comorbidities, presenting symptoms, or acuity I expect that the services needed warrant INPATIENT care.: Yes I certify that my determination is in accordance with my understanding of Medicare's requirements for reasonable and necessary INPATIENT services [42 CFR 412.3e].: Yes Medical Necessity: Need Close Monitoring Due to Risk of Patient Decompensation, Need For IV Fluids, Need for IV Antibiotics, Risk of Diagnosis Which Will Require Inpatient Eval/Care/Monitoring Post Hospital Care: D/C Special Needs Librarian Documentation - Plan Summary Plan Summary: See admitting physician orders
[2016-08-20] MEDS ORDERED: FLUCONAZOLE 400 MG/NS RTU 400 MG/200 ML RTUPB IV ONE (20:31)
[2016-08-20 20:36] LABS: PARTIAL THROMBOPLASTIN TIME 27.2 SEC (23.5-35.8)
[2016-08-21 05:03] LABS: ABSOLUTE LYMPHOCYTES (AUTO) 1.2 10^3/uL (0.5-4.7); ABSOLUTE MONOCYTES (AUTO) 0.4 10^3/uL (0.1-1.4); ABSOLUTE NEUT (AUTO) 7.4 10^3/uL (1.7-8.2); BASOPHILS % (AUTO) 0.2 % (0-2); EOSINOPHILS % (AUTO) 0.1 % (0-6); HEMATOCRIT 28.7 % (37.9-51.0); HGB HCT DIFFERENCE -1.4; LYMPHOCYTES % (AUTO) 12.8 % (13-45); MEAN CORPUSCULAR HEMOGLOBIN 29.7 pg (27.0-33.4); MEAN CORPUSCULAR HGB CONC 31.8 g/dL (32.0-36.0); MEAN CORPUSCULAR VOLUME 94 fl (80-97); MONOCYTES % (AUTO) 4.9 % (3-13); RED BLOOD COUNT 3.06 10^6/uL (4.35-5.55); RED CELL DISTRIBUTION WIDTH 13.4 % (11.5-14.0)
[2016-08-21 05:09] LABS: HEMOGLOBIN 9.1 g/dL (13.5-17.0)
[2016-08-21 05:13] LABS: ALANINE AMINOTRANSFERASE 40 U/L (21-72); ALBUMIN 2.4 g/dL (3.5-5.0); ALKALINE PHOSPHATASE 72 U/L (38-126); ANION GAP 11 (5-19); ASPARTATE AMINO TRANSFERASE 34 U/L (17-59); BILIRUBIN,DIRECT 0.3 mg/dL (0.0-0.4); BILIRUBIN,TOTAL 0.4 mg/dL (0.2-1.3); BLOOD UREA NITROGEN 41 mg/dL (7-20); CALCIUM 9.1 mg/dL (8.4-10.2); CARBON DIOXIDE 18 mmol/L (22-30); CHLORIDE 118 mmol/L (98-107); GLUCOSE 139 mg/dL (75-110); POTASSIUM 3.8 mmol/L (3.6-5.0); SODIUM 147.4 mmol/L (137-145); TOTAL PROTEIN 5.9 g/dL (6.3-8.2)
[2016-08-21] MEDS: LANSOPRAZOLE 30 MG TAB.RAP.DR PO SCH (06:09)
[2016-08-21] MEDS: DEXTROSE 5%-NORMAL SALINE 1,000 ML IV PRN ×2 (06:42→17:48)
--- NOTE | 2016-08-21 11:12 | PDOC PROGRESS REPORT ---
Subjective Progress Note for:: 08/21/16 Subjective:: Patient remain NPO. No recurrent vomiting. Maintain on IV fluid, IV Diflucan and Rocephin coverage. No reported fever. Physical Exam Vital Signs: Temp Pulse Resp BP Pulse Ox 97.6 F 63 15 111/84 96 08/21/16 07:22 08/21/16 07:22 08/21/16 07:22 08/21/16 07:22 08/21/16 07:22 Intake & Output 08/20/16 08/21/16 08/22/16 06:59 06:59 06:59 Intake Total 1217 Output Total 400 Balance 817 Weight 55.7 kg General appearance: PRESENT: no acute distress, cooperative Head exam: PRESENT: atraumatic, normocephalic Eye exam: PRESENT: conjunctiva pink, EOMI, PERRLA. ABSENT: scleral icterus Mouth exam: PRESENT: moist Respiratory exam: PRESENT: clear to auscultation prudencio, decreased breath sounds - at lung bases. Cardiovascular exam: PRESENT: RRR. ABSENT: diastolic murmur, rubs, systolic murmur GI/Abdominal exam: PRESENT: normal bowel sounds, soft. ABSENT: distended, guarding, mass, organolmegaly, rebound, tenderness Extremities exam: ABSENT: pedal edema Neurological exam: PRESENT: altered - due to base line dementia but approprite in simple responses Psychiatric exam: PRESENT: appropriate affect Skin exam: PRESENT: dry, warm, other - left heel pressure ulcer Results Laboratory Results: 08/21/16 03:49 08/21/16 03:49 08/21/16 08/21/16 03:49 03:49 WBC 9.0 RBC 3.06 L Hgb 9.1 L D Hct 28.7 L MCV 94 MCH 29.7 MCHC 31.8 L RDW 13.4 Plt Count 164 Seg Neutrophils % 82.0 H Lymphocytes % 12.8 L Monocytes % 4.9 Eosinophils % 0.1 Basophils % 0.2 Absolute Neutrophils 7.4 Absolute Lymphocytes 1.2 Absolute Monocytes 0.4 Absolute Eosinophils 0.0 Absolute Basophils 0.0 Sodium 147.4 H Potassium 3.8 Chloride 118 H Carbon Dioxide 18 L Anion Gap 11 BUN 41 H Creatinine 1.10 Est GFR ( Amer) > 60 Est GFR (Non-Af Amer) > 60 Glucose 139 H Calcium 9.1 Total Bilirubin 0.4 AST 34 ALT 40 Alkaline Phosphatase 72 Total Protein 5.9 L Albumin 2.4 L Impressions: Chest X-Ray 08/20/16 08:34 IMPRESSION: Stable chest without acute cardiopulmonary disease evident. Assessment & Plan - Diagnosis (1) Acute renal failure Qualifiers: Acute renal failure type: unspecified Qualified Code(s): N17.9 - Acute kidney failure, unspecified Is this a current diagnosis for this admission?: YesPlan: Improving renal indices. See attending physician orders. (2) Dehydration Is this a current diagnosis for this admission?: Yes (3) Hypernatremia Is this a current diagnosis for this admission?: YesPlan: Improving with IV fluid hydration. See attending physician orders. (4) UTI (urinary tract infection) Qualifiers: Urinary tract infection type: acute cystitis Hematuria presence: without hematuria Qualified Code(s): N30.00 - Acute cystitis without hematuria Is this a current diagnosis for this admission?: YesPlan: See attending physician orders. (5) Thrush, oral Is this a current diagnosis for this admission?: YesPlan: See attending physician orders. (6) Shortness of breath Plan: Improving. See attending physician orders. (7) HTN (hypertension) Qualifiers: Hypertension type: essential hypertension Qualified Code(s): I10 - Essential (primary) hypertension Is this a current diagnosis for this admission?: Yes (8) HLD (hyperlipidemia) Qualifiers: Hyperlipidemia type: pure hypercholesterolemia Qualified Code(s): E78.00 - Pure hypercholesterolemia, unspecified; E78.0 - Pure hypercholesterolemia Is this a current diagnosis for this admission?: Yes (9) CAD (coronary artery disease) Qualifiers: Coronary Disease-Associated Artery/Lesion type: [place] artery Associated angina: without angina Is this a current diagnosis for this admission?: Yes (10) Old [place] (myocardial infarction) Is this a current diagnosis for this admission?: Yes (11) Dementia, multi-infarct Qualifiers: Dementia behavioral disturbance: without behavioral disturbance Qualified Code(s): F01.50 - Vascular dementia without behavioral disturbance Is this a current diagnosis for this admission?: Yes - Time Time Spent with patient: 25-34 minutes Medications reviewed and adjusted accordingly: Yes Anticipated discharge: Other Within: Other - Inpatient Certification Medical Necessity: Need Close Monitoring Due to Risk of Patient Decompensation, Need For IV Fluids, Need For Continuous Telemetry Monitoring, Need for IV Antibiotics, Risk of Complication if Not Cared For in Hospital Post Hospital Care: D/C Field Professional Documentation - Plan Summary Plan Summary: Continue current medication management. See attending physician orders.
[2016-08-21] MEDS: ENOXAPARIN SODIUM INJ 30 MG/0.3 ML DISP.SYRIN SUBCUT SCH (11:46)
[2016-08-21] MEDS: CEFTRIAXONE 1 GM/D5W RTU 50 ML IV SCH (11:46)
[2016-08-21] MEDS: COLLAGENASE CLOSTRIDIUM HIST. OINT 30 GM TOP SCH (11:47)
[2016-08-21] MEDS: FLUCONAZOLE 200 MG/NS RTU 100 ML IV SCH (14:40)
[2016-08-22 05:15] LABS: ABSOLUTE EOSINOPHILS # (AUTO) 0.2 10^3/uL (0.0-0.6); ABSOLUTE LYMPHOCYTES (AUTO) 1.4 10^3/uL (0.5-4.7); ABSOLUTE MONOCYTES (AUTO) 0.4 10^3/uL (0.1-1.4); ABSOLUTE NEUT (AUTO) 5.5 10^3/uL (1.7-8.2); BASOPHILS % (AUTO) 0.2 % (0-2); EOSINOPHILS % (AUTO) 2.6 % (0-6); HEMATOCRIT 28.4 % (37.9-51.0); HEMOGLOBIN 9.1 g/dL (13.5-17.0); HGB HCT DIFFERENCE -1.1; MEAN CORPUSCULAR HEMOGLOBIN 30.1 pg (27.0-33.4); MEAN CORPUSCULAR VOLUME 94 fl (80-97); MONOCYTES % (AUTO) 5.7 % (3-13); RED BLOOD COUNT 3.02 10^6/uL (4.35-5.55); RED CELL DISTRIBUTION WIDTH 13.2 % (11.5-14.0); SEGMENTED NEUTROPHILS % (AUTO) 73.5 % (42-78); WHITE BLOOD COUNT 7.5 10^3/uL (4.0-10.5)
[2016-08-22] MEDS: LANSOPRAZOLE 30 MG TAB.RAP.DR PO SCH (05:15)
[2016-08-22 05:27] LABS: ANION GAP 9 (5-19); BLOOD UREA NITROGEN 26 mg/dL (7-20); CALCIUM 9.3 mg/dL (8.4-10.2); CARBON DIOXIDE 19 mmol/L (22-30); CHLORIDE 124 mmol/L (98-107); CREATININE RESULT 0.94 mg/dL (0.52-1.25); GLUCOSE 111 mg/dL (75-110); POTASSIUM 3.8 mmol/L (3.6-5.0); SODIUM 151.6 mmol/L (137-145)
[2016-08-22] MEDS: MORPHINE SULFATE 10 MG/ML INJ IV PRN ×3 (09:30→17:34)
--- NOTE | 2016-08-22 09:31 | PDOC PROGRESS REPORT ---
Subjective Progress Note for:: 08/22/16 Subjective:: Patient remain NPO. Speech pathologist evaluation this morning confirm high risk of aspiration. Family reported administration of puree diet with nectar thicken fluid at home. Main aspiration precaution was feeding upright in a wheelchair. No recurrent vomiting. Maintain on IV fluid, IV Diflucan and Rocephin coverage. No reported fever. Physical Exam Vital Signs: Temp Pulse Resp BP Pulse Ox 98.0 F 80 12 138/42 H 100 08/22/16 07:41 08/22/16 07:41 08/22/16 07:41 08/22/16 07:41 08/22/16 07:41 Intake & Output 08/21/16 08/22/16 08/23/16 06:59 06:59 06:59 Intake Total 1217 2300 Output Total 400 1075 Balance 817 1225 Weight 55.7 kg Physical Exam: General appearance: PRESENT: no acute distress, cooperative Head exam: PRESENT: atraumatic, normocephalic Eye exam: PRESENT: conjunctiva pink, EOMI, PERRLA. ABSENT: scleral icterus Mouth exam: PRESENT: moist Respiratory exam: PRESENT: clear to auscultation prudencio, decreased breath sounds - at lung bases. Cardiovascular exam: PRESENT: RRR. ABSENT: diastolic murmur, rubs, systolic murmur GI/Abdominal exam: PRESENT: normal bowel sounds, soft. ABSENT: distended, guarding, mass, organomegaly, rebound, tenderness Extremities exam: ABSENT: pedal edema Neurological exam: PRESENT: altered - due to base line dementia but approprite in simple responses Psychiatric exam: PRESENT: appropriate affect Skin exam: PRESENT: dry, warm, other - left heel pressure ulcer Results Laboratory Results: 08/22/16 04:04 08/22/16 04:04 08/22/16 08/22/16 04:04 04:04 WBC 7.5 RBC 3.02 L Hgb 9.1 L Hct 28.4 L MCV 94 MCH 30.1 MCHC 32.0 RDW 13.2 Plt Count 164 Seg Neutrophils % 73.5 Lymphocytes % 18.0 Monocytes % 5.7 Eosinophils % 2.6 Basophils % 0.2 Absolute Neutrophils 5.5 Absolute Lymphocytes 1.4 Absolute Monocytes 0.4 Absolute Eosinophils 0.2 Absolute Basophils 0.0 Sodium 151.6 H Potassium 3.8 Chloride 124 H Carbon Dioxide 19 L Anion Gap 9 BUN 26 H Creatinine 0.94 Est GFR ( Amer) > 60 Est GFR (Non-Af Amer) > 60 Glucose 111 H Calcium 9.3 Impressions: Chest X-Ray 08/20/16 08:34 IMPRESSION: Stable chest without acute cardiopulmonary disease evident. Assessment & Plan - Diagnosis (1) Acute renal failure Qualifiers: Acute renal failure type: unspecified Qualified Code(s): N17.9 - Acute kidney failure, unspecified Is this a current diagnosis for this admission?: Yes (2) Dehydration Is this a current diagnosis for this admission?: Yes (3) Hypernatremia Is this a current diagnosis for this admission?: Yes (4) UTI (urinary tract infection) Qualifiers: Urinary tract infection type: acute cystitis Hematuria presence: without hematuria Qualified Code(s): N30.00 - Acute cystitis without hematuria Is this a current diagnosis for this admission?: Yes (5) Thrush, oral Is this a current diagnosis for this admission?: Yes (7) HTN (hypertension) Qualifiers: Hypertension type: essential hypertension Qualified Code(s): I10 - Essential (primary) hypertension Is this a current diagnosis for this admission?: Yes (8) HLD (hyperlipidemia) Qualifiers: Hyperlipidemia type: pure hypercholesterolemia Qualified Code(s): E78.00 - Pure hypercholesterolemia, unspecified; E78.0 - Pure hypercholesterolemia Is this a current diagnosis for this admission?: Yes (9) CAD (coronary artery disease) Qualifiers: Coronary Disease-Associated Artery/Lesion type: [place] artery Associated angina: without angina Is this a current diagnosis for this admission?: Yes (10) Old [place] (myocardial infarction) Is this a current diagnosis for this admission?: Yes (11) Dementia, multi-infarct Qualifiers: Dementia behavioral disturbance: without behavioral disturbance Qualified Code(s): F01.50 - Vascular dementia without behavioral disturbance Is this a current diagnosis for this admission?: Yes - Time Time Spent with patient: 25-34 minutes Medications reviewed and adjusted accordingly: Yes Anticipated discharge: Home with Homehealth Within: Other - Inpatient Certification Medical Necessity: Need Close Monitoring Due to Risk of Patient Decompensation, Need For IV Fluids, Need For Continuous Telemetry Monitoring, Risk of Complication if Not Cared For in Hospital Post Hospital Care: D/C Slicing Machine Operator/Tender Documentation - Plan Summary Plan Summary: see attending physician note.
[2016-08-22] MEDS: CEFTRIAXONE 1 GM/D5W RTU 50 ML IV SCH (10:26)
[2016-08-22] MEDS: NYSTATIN 500000 UNIT/5 ML UDCUP PO SCH ×4 (10:26→22:15)
[2016-08-22] MEDS: ENOXAPARIN SODIUM INJ 30 MG/0.3 ML DISP.SYRIN SUBCUT SCH (10:27)
[2016-08-22] MEDS: FLUCONAZOLE 200 MG/NS RTU 100 ML IV SCH (11:11)
[2016-08-22] MEDS: COLLAGENASE CLOSTRIDIUM HIST. OINT 30 GM TOP SCH (11:33)
[2016-08-22] MEDS: TRAZODONE HCL 50 MG TABLET PO SCH (22:15)
[2016-08-23] MEDS: MORPHINE SULFATE 10 MG/ML INJ IV PRN ×4 (01:04→22:33)
[2016-08-23] MEDS: LANSOPRAZOLE 30 MG TAB.RAP.DR PO SCH (05:28)
[2016-08-23] MEDS: ENOXAPARIN SODIUM INJ 30 MG/0.3 ML DISP.SYRIN SUBCUT SCH (09:12)
[2016-08-23] MEDS: FLUCONAZOLE 200 MG/NS RTU 100 ML IV SCH (09:12)
[2016-08-23] MEDS: CEFTRIAXONE 1 GM/D5W RTU 50 ML IV SCH (09:13)
[2016-08-23] MEDS: NYSTATIN 500000 UNIT/5 ML UDCUP PO SCH ×4 (09:13→22:13)
[2016-08-23] MEDS: COLLAGENASE CLOSTRIDIUM HIST. OINT 30 GM TOP SCH (09:19)
--- NOTE | 2016-08-23 20:15 | PDOC PROGRESS REPORT ---
Subjective Progress Note for:: 08/23/16 Subjective:: Patient is tolerating puree diet with feeding assistance. There is single episode of vomiting after breakfast with copious mucous secretion. Urine culture did grew Misa species. Patient remain on IV Diflucan therapy. No reported fever. Maintain on IV Rocephin and fluid support. Physical Exam Vital Signs: Temp Pulse Resp BP Pulse Ox 98.6 F 74 13 157/70 H 97 08/23/16 16:01 08/23/16 19:00 08/23/16 16:01 08/23/16 16:01 08/23/16 16:01 Intake & Output 08/22/16 08/23/16 08/24/16 06:59 06:59 06:59 Intake Total 2300 4638 996 Output Total 1075 500 Balance 1225 4138 996 Weight 58.8 kg Physical Exam: General appearance: PRESENT: no acute distress, cooperative Head exam: PRESENT: atraumatic, normocephalic Eye exam: PRESENT: conjunctiva pink, EOMI, PERRLA. ABSENT: scleral icterus Mouth exam: PRESENT: moist Respiratory exam: PRESENT: clear to auscultation prudencio, decreased breath sounds - at lung bases. Cardiovascular exam: PRESENT: RRR. ABSENT: diastolic murmur, rubs, systolic murmur GI/Abdominal exam: PRESENT: normal bowel sounds, soft. ABSENT: distended, guarding, mass, organomegaly, rebound, tenderness Extremities exam: ABSENT: pedal edema Neurological exam: PRESENT: altered - due to base line dementia but appropriate in simple responses Psychiatric exam: PRESENT: appropriate affect Skin exam: PRESENT: dry, warm, other - left heel pressure ulcer Results Laboratory Results: 08/22/16 04:04 08/22/16 04:04 Impressions: Chest X-Ray 08/20/16 08:34 IMPRESSION: Stable chest without acute cardiopulmonary disease evident. Assessment & Plan - Diagnosis (1) Acute renal failure Qualifiers: Acute renal failure type: unspecified Qualified Code(s): N17.9 - Acute kidney failure, unspecified Is this a current diagnosis for this admission?: YesPlan: Improving renal indices. See attending physician orders. (2) Dehydration Is this a current diagnosis for this admission?: YesPlan: See admitting physician orders (3) Hypernatremia Is this a current diagnosis for this admission?: YesPlan: Improving with IV fluid hydration. See attending physician orders. (4) UTI (urinary tract infection) Qualifiers: Urinary tract infection type: acute cystitis Hematuria presence: without hematuria Qualified Code(s): N30.00 - Acute cystitis without hematuria Is this a current diagnosis for this admission?: YesPlan: See attending physician orders. Urine culture suggested Misa species as causative organism. (5) Thrush, oral Is this a current diagnosis for this admission?: YesPlan: See attending physician orders. Probably related to his UTI infection. (6) Shortness of breath Plan: Improving. See attending physician orders. (7) HTN (hypertension) Qualifiers: Hypertension type: essential hypertension Qualified Code(s): I10 - Essential (primary) hypertension Is this a current diagnosis for this admission?: YesPlan: See admitting physician orders (8) HLD (hyperlipidemia) Qualifiers: Hyperlipidemia type: pure hypercholesterolemia Qualified Code(s): E78.00 - Pure hypercholesterolemia, unspecified; E78.0 - Pure hypercholesterolemia Is this a current diagnosis for this admission?: YesPlan: See admitting physician orders (9) CAD (coronary artery disease) Qualifiers: Coronary Disease-Associated Artery/Lesion type: [place] artery Associated angina: without angina Is this a current diagnosis for this admission?: YesPlan: See admitting physician orders (10) Old [place] (myocardial infarction) Is this a current diagnosis for this admission?: YesPlan: See admitting physician orders (11) Dementia, multi-infarct Qualifiers: Dementia behavioral disturbance: without behavioral disturbance Qualified Code(s): F01.50 - Vascular dementia without behavioral disturbance Is this a current diagnosis for this admission?: YesPlan: See admitting physician orders - Time Time Spent with patient: 25-34 minutes Anticipated discharge: Home with Homehealth Within: Other - Inpatient Certification Medical Necessity: Need Close Monitoring Due to Risk of Patient Decompensation, Need For IV Fluids, Need for IV Antibiotics, Risk of Complication if Not Cared For in Hospital Post Hospital Care: D/C Social Science Professor Documentation - Plan Summary Plan Summary: Continue current mediation management. D/C accuchek.
[2016-08-23] MEDS: TRAZODONE HCL 50 MG TABLET PO SCH (22:13)
[2016-08-24] MEDS: LANSOPRAZOLE 30 MG TAB.RAP.DR PO SCH (05:12)
[2016-08-24 05:24] LABS: ABSOLUTE EOSINOPHILS # (AUTO) 0.2 10^3/uL (0.0-0.6); ABSOLUTE LYMPHOCYTES (AUTO) 2.2 10^3/uL (0.5-4.7); ABSOLUTE MONOCYTES (AUTO) 0.5 10^3/uL (0.1-1.4); ABSOLUTE NEUT (AUTO) 6.9 10^3/uL (1.7-8.2); BASOPHILS % (AUTO) 0.3 % (0-2); EOSINOPHILS % (AUTO) 2.1 % (0-6); HEMATOCRIT 29.6 % (37.9-51.0); HEMOGLOBIN 9.6 g/dL (13.5-17.0); HGB HCT DIFFERENCE -0.8; LYMPHOCYTES % (AUTO) 22.7 % (13-45); MEAN CORPUSCULAR HEMOGLOBIN 30.1 pg (27.0-33.4); MEAN CORPUSCULAR HGB CONC 32.4 g/dL (32.0-36.0); MEAN CORPUSCULAR VOLUME 93 fl (80-97); MONOCYTES % (AUTO) 4.9 % (3-13); RED BLOOD COUNT 3.18 10^6/uL (4.35-5.55); RED CELL DISTRIBUTION WIDTH 13.2 % (11.5-14.0); WHITE BLOOD COUNT 9.8 10^3/uL (4.0-10.5)
[2016-08-24 05:42] LABS: ANION GAP 8 (5-19); BLOOD UREA NITROGEN 11 mg/dL (7-20); CALCIUM 8.8 mg/dL (8.4-10.2); CARBON DIOXIDE 20 mmol/L (22-30); CHLORIDE 120 mmol/L (98-107); CREATININE RESULT 0.73 mg/dL (0.52-1.25); GLUCOSE 100 mg/dL (75-110); POTASSIUM 3.4 mmol/L (3.6-5.0); SODIUM 147.5 mmol/L (137-145)
[2016-08-24] MEDS: ACETAMINOPHEN 650 MG SUPP.RECT PR PRN (08:10)
[2016-08-24] MEDS: ENOXAPARIN SODIUM INJ 30 MG/0.3 ML DISP.SYRIN SUBCUT SCH (09:34)
[2016-08-24] MEDS: CEFTRIAXONE 1 GM/D5W RTU 50 ML IV SCH (09:34)
[2016-08-24] MEDS: NYSTATIN 500000 UNIT/5 ML UDCUP PO SCH ×4 (09:34→21:24)
[2016-08-24] MEDS: COLLAGENASE CLOSTRIDIUM HIST. OINT 30 GM TOP SCH (10:59)
[2016-08-24] MEDS: MORPHINE SULFATE 10 MG/ML INJ IV PRN ×3 (11:01→20:41)
[2016-08-24] MEDS: FLUCONAZOLE 200 MG/NS RTU 100 ML IV SCH (11:01)
[2016-08-24] MEDS: DEXTROSE 5%-NORMAL SALINE 1,000 ML IV PRN (11:02)
--- NOTE | 2016-08-24 11:23 | PDOC PROGRESS REPORT ---
Subjective Progress Note for:: 08/24/16 Subjective:: No reported fever. Patient remain on IV Diflucan and IV Rocephin. He remain on IV fluid support. Patient is tolerating puree diet with feeding assistance. No reported recurrent vomiting. Physical Exam Vital Signs: Temp Pulse Resp BP Pulse Ox 98.2 F 76 16 149/63 H 100 08/24/16 07:24 08/24/16 07:24 08/24/16 07:24 08/24/16 07:24 08/24/16 07:24 Intake & Output 08/23/16 08/24/16 08/25/16 06:59 06:59 06:59 Intake Total 4638 2196 Output Total 500 220 Balance 4138 1976 Weight 58.8 kg Physical Exam: General appearance: PRESENT: no acute distress, cooperative Head exam: PRESENT: atraumatic, normocephalic Eye exam: PRESENT: conjunctiva pink, EOMI, PERRLA. ABSENT: scleral icterus Mouth exam: PRESENT: moist Respiratory exam: PRESENT: clear to auscultation prudencio, decreased breath sounds - at lung bases. Cardiovascular exam: PRESENT: RRR. ABSENT: diastolic murmur, rubs, systolic murmur GI/Abdominal exam: PRESENT: normal bowel sounds, soft. ABSENT: distended, guarding, mass, organomegaly, rebound, tenderness Extremities exam: ABSENT: pedal edema Neurological exam: PRESENT: altered - due to base line dementia but appropriate in simple responses Psychiatric exam: PRESENT: appropriate affect Skin exam: PRESENT: dry, warm, other - left heel pressure ulcer Results Laboratory Results: 08/24/16 04:26 08/24/16 04:26 08/24/16 08/24/16 04:26 04:26 WBC 9.8 RBC 3.18 L Hgb 9.6 L Hct 29.6 L MCV 93 MCH 30.1 MCHC 32.4 RDW 13.2 Plt Count 183 Seg Neutrophils % 70.0 Lymphocytes % 22.7 Monocytes % 4.9 Eosinophils % 2.1 Basophils % 0.3 Absolute Neutrophils 6.9 Absolute Lymphocytes 2.2 Absolute Monocytes 0.5 Absolute Eosinophils 0.2 Absolute Basophils 0.0 Sodium 147.5 H Potassium 3.4 L Chloride 120 H Carbon Dioxide 20 L Anion Gap 8 BUN 11 Creatinine 0.73 Est GFR ( Amer) > 60 Est GFR (Non-Af Amer) > 60 Glucose 100 Calcium 8.8 Impressions: Chest X-Ray 08/20/16 08:34 IMPRESSION: Stable chest without acute cardiopulmonary disease evident. Assessment & Plan - Diagnosis (1) Acute renal failure Qualifiers: Acute renal failure type: unspecified Qualified Code(s): N17.9 - Acute kidney failure, unspecified Is this a current diagnosis for this admission?: Yes (2) Dehydration Is this a current diagnosis for this admission?: Yes (3) Hypernatremia Is this a current diagnosis for this admission?: Yes (4) UTI (urinary tract infection) Qualifiers: Urinary tract infection type: acute cystitis Hematuria presence: without hematuria Qualified Code(s): N30.00 - Acute cystitis without hematuria Is this a current diagnosis for this admission?: Yes (5) HTN (hypertension) Qualifiers: Hypertension type: essential hypertension Qualified Code(s): I10 - Essential (primary) hypertension Is this a current diagnosis for this admission?: Yes (6) HLD (hyperlipidemia) Qualifiers: Hyperlipidemia type: pure hypercholesterolemia Qualified Code(s): E78.00 - Pure hypercholesterolemia, unspecified; E78.0 - Pure hypercholesterolemia Is this a current diagnosis for this admission?: Yes (7) CAD (coronary artery disease) Qualifiers: Coronary Disease-Associated Artery/Lesion type: [place] artery Associated angina: without angina Is this a current diagnosis for this admission?: Yes (8) Old [place] (myocardial infarction) Is this a current diagnosis for this admission?: Yes (9) Dementia, multi-infarct Qualifiers: Dementia behavioral disturbance: without behavioral disturbance Qualified Code(s): F01.50 - Vascular dementia without behavioral disturbance Is this a current diagnosis for this admission?: Yes - Time Time Spent with patient: 25-34 minutes Medications reviewed and adjusted accordingly: Yes Anticipated discharge: Home with Homehealth Within: Other - Inpatient Certification Based on my medical assessment, after consideration of the patient's comorbidities, presenting symptoms, or acuity I expect that the services needed warrant INPATIENT care.: Yes I certify that my determination is in accordance with my understanding of Medicare's requirements for reasonable and necessary INPATIENT services [42 CFR 412.3e].: Yes Medical Necessity: Need Close Monitoring Due to Risk of Patient Decompensation, Need For IV Fluids, Need For Continuous Telemetry Monitoring, Need for IV Antibiotics, Risk of Complication if Not Cared For in Hospital Post Hospital Care: D/C Complaints Coordinator Documentation - Plan Summary Plan Summary: See attending physician orders. He will receive potassium replacement. Obtain serum magnesium level.
[2016-08-24] MEDS: POTASSI CL 20 MEQ/50 ML RIDER 20 MEQ/50 ML RTUPB IV SCH ×2 (12:28→14:08)
[2016-08-24] MEDS: TRAZODONE HCL 50 MG TABLET PO SCH (20:42)
[2016-08-25] MEDS: MORPHINE SULFATE 10 MG/ML INJ IV PRN ×5 (01:40→22:00)
[2016-08-25] MEDS: LANSOPRAZOLE 30 MG TAB.RAP.DR PO SCH (05:58)
[2016-08-25 07:15] LABS: ANION GAP 6 (5-19); BLOOD UREA NITROGEN 9 mg/dL (7-20); CALCIUM 8.4 mg/dL (8.4-10.2); CARBON DIOXIDE 22 mmol/L (22-30); CHLORIDE 119 mmol/L (98-107); GLUCOSE 103 mg/dL (75-110); POTASSIUM 3.7 mmol/L (3.6-5.0); SODIUM 146.9 mmol/L (137-145)
[2016-08-25] MEDS: DEXTROSE 5%-NORMAL SALINE 1,000 ML IV PRN (07:53)
[2016-08-25] MEDS: CEFTRIAXONE 1 GM/D5W RTU 50 ML IV SCH (10:43)
[2016-08-25] MEDS: NYSTATIN 500000 UNIT/5 ML UDCUP PO SCH ×4 (10:43→21:59)
[2016-08-25] MEDS: ENOXAPARIN SODIUM INJ 30 MG/0.3 ML DISP.SYRIN SUBCUT SCH (10:43)
[2016-08-25] MEDS: FLUCONAZOLE 200 MG/NS RTU 100 ML IV SCH (12:44)
[2016-08-25] MEDS: COLLAGENASE CLOSTRIDIUM HIST. OINT 30 GM TOP SCH (12:44)
--- NOTE | 2016-08-25 19:50 | PDOC PROGRESS REPORT ---
Subjective Progress Note for:: 08/25/16 Subjective:: Son at bedside. There has been excessive salivation and secretion with problem expectorating. Patient is not compliant with oropharyngeal suctioning effort. No reported fever. Feeding has been difficult as per son so far today. Mainly taking minimal ensure orally. No reported recurrent vomiting. Physical Exam Vital Signs: Temp Pulse Resp BP Pulse Ox 98.6 F 125 H 18 152/71 H 96 08/25/16 16:00 08/25/16 16:00 08/25/16 16:00 08/25/16 16:00 08/25/16 16:00 Intake & Output 08/24/16 08/25/16 08/26/16 06:59 06:59 06:59 Intake Total 2196 2870 1470 Output Total 220 835 Balance 1976 2034 1470 Physical Exam: General appearance: PRESENT: no acute distress, cooperative Head exam: PRESENT: atraumatic, normocephalic Eye exam: PRESENT: conjunctiva pink, EOMI, PERRLA. ABSENT: scleral icterus Mouth exam: PRESENT: moist, excessive saliva and secretion collection. Respiratory exam: PRESENT: clear to auscultation prudencio, decreased breath sounds - at lung bases. Cardiovascular exam: PRESENT: RRR. ABSENT: diastolic murmur, rubs, systolic murmur GI/Abdominal exam: PRESENT: normal bowel sounds, soft. ABSENT: distended, guarding, mass, organomegaly, rebound, tenderness Extremities exam: ABSENT: pedal edema Neurological exam: PRESENT: altered - due to base line dementia but appropriate in simple responses Psychiatric exam: PRESENT: appropriate affect Skin exam: PRESENT: dry, warm, other - left heel pressure ulcer Results Laboratory Results: 08/24/16 04:26 08/25/16 06:36 08/25/16 06:36 Sodium 146.9 H Potassium 3.7 Chloride 119 H Carbon Dioxide 22 Anion Gap 6 BUN 9 Creatinine 0.70 Est GFR ( Amer) > 60 Est GFR (Non-Af Amer) > 60 Glucose 103 Calcium 8.4 Impressions: Chest X-Ray 08/20/16 08:34 IMPRESSION: Stable chest without acute cardiopulmonary disease evident. Assessment & Plan - Diagnosis (1) Acute renal failure Qualifiers: Acute renal failure type: unspecified Qualified Code(s): N17.9 - Acute kidney failure, unspecified Is this a current diagnosis for this admission?: YesPlan: Improving renal indices. See attending physician orders. (2) Dehydration Is this a current diagnosis for this admission?: YesPlan: See admitting physician orders. I shelly decrease IV fluid rate to 50 mL / hour (3) Hypernatremia Is this a current diagnosis for this admission?: Yes (4) UTI (urinary tract infection) Qualifiers: Urinary tract infection type: acute cystitis Hematuria presence: without hematuria Qualified Code(s): N30.00 - Acute cystitis without hematuria Is this a current diagnosis for this admission?: YesPlan: See attending physician orders. Urine culture suggested Misa species as causative organism. (5) HTN (hypertension) Qualifiers: Hypertension type: essential hypertension Qualified Code(s): I10 - Essential (primary) hypertension Is this a current diagnosis for this admission?: Yes (6) HLD (hyperlipidemia) Qualifiers: Hyperlipidemia type: pure hypercholesterolemia Qualified Code(s): E78.00 - Pure hypercholesterolemia, unspecified; E78.0 - Pure hypercholesterolemia Is this a current diagnosis for this admission?: Yes (7) CAD (coronary artery disease) Qualifiers: Coronary Disease-Associated Artery/Lesion type: [place] artery Associated angina: without angina Is this a current diagnosis for this admission?: Yes (8) Old [place] (myocardial infarction) Is this a current diagnosis for this admission?: Yes (9) Dementia, multi-infarct Qualifiers: Dementia behavioral disturbance: without behavioral disturbance Qualified Code(s): F01.50 - Vascular dementia without behavioral disturbance Is this a current diagnosis for this admission?: Yes (10) Excessive oral secretions Is this a current diagnosis for this admission?: NoPlan: We will continue efforts at intermittent suctioning. Consider use of atropine 1 % solution 1 drop SL [id number] on prn basis to aide with control of excessive secretion. - Time Time Spent with patient: 35 or more minutes Medications reviewed and adjusted accordingly: Yes Anticipated discharge: Home with Homehealth Within: Other - Inpatient Certification Medical Necessity: Need Close Monitoring Due to Risk of Patient Decompensation, Need For IV Fluids, Need For Continuous Telemetry Monitoring, Need for IV Antibiotics, Risk of Complication if Not Cared For in Hospital Post Hospital Care: D/C Manager Psychology Documentation - Plan Summary Plan Summary: See attending physician orders.
[2016-08-25] MEDS: ATROPINE SULFATE 1% OPH SOLN 5 ML BOTTLE SL PRN (21:59)
[2016-08-25] MEDS: TRAZODONE HCL 50 MG TABLET PO SCH (21:59)
[2016-08-26] MEDS: LANSOPRAZOLE 30 MG TAB.RAP.DR PO SCH (05:13)
[2016-08-26] MEDS: ENOXAPARIN SODIUM INJ 30 MG/0.3 ML DISP.SYRIN SUBCUT SCH (09:54)
[2016-08-26] MEDS: MORPHINE SULFATE 10 MG/ML INJ IV PRN ×3 (09:54→19:51)
[2016-08-26] MEDS: NYSTATIN 500000 UNIT/5 ML UDCUP PO SCH ×4 (09:54→21:05)
[2016-08-26] MEDS: FLUCONAZOLE 200 MG/NS RTU 100 ML IV SCH (09:58)
--- NOTE | 2016-08-26 14:59 | PDOC PROGRESS REPORT ---
Subjective Progress Note for:: 08/26/16 Subjective:: No chest pain or difficulty with breathing. No fever or chills. No nausea, vomiting, or abdominal pain. Son at bedside. There is improvement in his excessive salivation and secretion with current therapy. P.O intake remain a challenge with poor appetite. Physical Exam Vital Signs: Temp Pulse Resp BP Pulse Ox 98.6 F 73 17 144/51 H 97 08/26/16 11:23 08/26/16 11:23 08/26/16 11:23 08/26/16 11:23 08/26/16 11:23 Intake & Output 08/25/16 08/26/16 08/27/16 06:59 06:59 06:59 Intake Total 2870 2270 Output Total 835 700 Balance 2035 1570 Weight 63.7 kg Physical Exam: General appearance: PRESENT: no acute distress, cooperative Head exam: PRESENT: atraumatic, normocephalic Eye exam: PRESENT: conjunctiva pink, EOMI, PERRLA. ABSENT: scleral icterus Mouth exam: PRESENT: moist. ABSENT: excessive saliva and secretion collection Respiratory exam: PRESENT: clear to auscultation prudencio, decreased breath sounds - at lung bases. Cardiovascular exam: PRESENT: RRR. ABSENT: diastolic murmur, rubs, systolic murmur GI/Abdominal exam: PRESENT: normal bowel sounds, soft. ABSENT: distended, guarding, mass, organomegaly, rebound, tenderness Extremities exam: ABSENT: pedal edema Neurological exam: PRESENT: altered - due to base line dementia but appropriate in simple responses Psychiatric exam: PRESENT: appropriate affect Skin exam: PRESENT: dry, warm, other - left heel pressure ulcer Results Laboratory Results: 08/24/16 04:26 08/25/16 06:36 Impressions: Chest X-Ray 08/20/16 08:34 IMPRESSION: Stable chest without acute cardiopulmonary disease evident. Assessment & Plan - Diagnosis (1) Acute renal failure Qualifiers: Acute renal failure type: unspecified Qualified Code(s): N17.9 - Acute kidney failure, unspecified Is this a current diagnosis for this admission?: Yes (2) Dehydration Is this a current diagnosis for this admission?: Yes (3) Hypernatremia Is this a current diagnosis for this admission?: Yes (4) UTI (urinary tract infection) Qualifiers: Urinary tract infection type: acute cystitis Hematuria presence: without hematuria Qualified Code(s): N30.00 - Acute cystitis without hematuria Is this a current diagnosis for this admission?: Yes (5) HTN (hypertension) Qualifiers: Hypertension type: essential hypertension Qualified Code(s): I10 - Essential (primary) hypertension Is this a current diagnosis for this admission?: Yes (6) HLD (hyperlipidemia) Qualifiers: Hyperlipidemia type: pure hypercholesterolemia Qualified Code(s): E78.00 - Pure hypercholesterolemia, unspecified; E78.0 - Pure hypercholesterolemia Is this a current diagnosis for this admission?: Yes (7) CAD (coronary artery disease) Qualifiers: Coronary Disease-Associated Artery/Lesion type: [place] artery Associated angina: without angina Is this a current diagnosis for this admission?: Yes (8) Old [place] (myocardial infarction) Is this a current diagnosis for this admission?: Yes (9) Dementia, multi-infarct Qualifiers: Dementia behavioral disturbance: without behavioral disturbance Qualified Code(s): F01.50 - Vascular dementia without behavioral disturbance Is this a current diagnosis for this admission?: Yes (10) Excessive oral secretions Is this a current diagnosis for this admission?: No (11) Adult failure to thrive syndrome Is this a current diagnosis for this admission?: YesPlan: Start on Multivitamin 5mL p.o daily. Encourage use of oral supplementation. - Time Time Spent with patient: 25-34 minutes Medications reviewed and adjusted accordingly: Yes Anticipated discharge: Home with Homehealth Within: Other - Inpatient Certification Medical Necessity: Need Close Monitoring Due to Risk of Patient Decompensation, Need For IV Fluids, Need For Continuous Telemetry Monitoring, Need for IV Antibiotics, Risk of Complication if Not Cared For in Hospital Post Hospital Care: D/C Emergency Medicine Medical Director Documentation - Plan Summary Plan Summary: See attending physician orders.
[2016-08-26] MEDS ORDERED: MULTIVITAMIN (INFANT) DROPS 50 ML PO SCH (15:00)
[2016-08-26] MEDS: COLLAGENASE CLOSTRIDIUM HIST. OINT 30 GM TOP SCH (15:04)
[2016-08-26] MEDS: DEXTROSE 5%-NORMAL SALINE 1,000 ML IV PRN (19:54)
[2016-08-26] MEDS: ATROPINE SULFATE 1% OPH SOLN 5 ML BOTTLE SL PRN (19:54)
[2016-08-26] MEDS: TRAZODONE HCL 50 MG TABLET PO SCH (21:06)
[2016-08-27] MEDS: MORPHINE SULFATE 10 MG/ML INJ IV PRN ×5 (02:27→21:00)
[2016-08-27] MEDS: LANSOPRAZOLE 30 MG TAB.RAP.DR PO SCH (05:12)
[2016-08-27] MEDS: NYSTATIN 500000 UNIT/5 ML UDCUP PO SCH ×4 (09:22→20:59)
[2016-08-27] MEDS: COLLAGENASE CLOSTRIDIUM HIST. OINT 30 GM TOP SCH (09:22)
[2016-08-27] MEDS: FLUCONAZOLE 200 MG/NS RTU 100 ML IV SCH (09:22)
[2016-08-27] MEDS: ENOXAPARIN SODIUM INJ 30 MG/0.3 ML DISP.SYRIN SUBCUT SCH (09:22)
[2016-08-27] MEDS ORDERED: (PENDING PHARMACY ID) (Acetaminophen [Tylenol Extra Strength 500 Mg Tablet] 1,000 MG) PO PRN (09:41)
[2016-08-27] MEDS ORDERED: NUT TX GLUC INTOLER LAC FR SOY PO SCH ×2 (10:00→11:00)
[2016-08-27] MEDS ORDERED: ACETAMINOPHEN 325 MG TABLET PO PRN (10:19)
[2016-08-27 10:56] LABS: ANION GAP 10 (5-19); BLOOD UREA NITROGEN 11 mg/dL (7-20); CALCIUM 8.6 mg/dL (8.4-10.2); CARBON DIOXIDE 20 mmol/L (22-30); CHLORIDE 111 mmol/L (98-107); CREATININE RESULT 0.77 mg/dL (0.52-1.25); GLUCOSE 108 mg/dL (75-110); POTASSIUM 4.4 mmol/L (3.6-5.0); SODIUM 140.6 mmol/L (137-145)
[2016-08-27] MEDS: FINASTERIDE 5 MG TABLET PO SCH (11:46)
[2016-08-27] MEDS ORDERED: SENNOSIDES/DOCUSATE 8.6-50 MG 1 EACH TABLET PO ONE (12:00)
[2016-08-27] MEDS ORDERED: METOPROLOL SUCCINATE 25 MG TAB.SR.24H PO ONE (12:45)
--- NOTE | 2016-08-27 14:57 | PDOC PROGRESS REPORT ---
Subjective Progress Note for:: 08/27/16 Subjective:: pt is doing same still poor appetite d/w family on bed side renal function is all stable Physical Exam Vital Signs: Temp Pulse Resp BP Pulse Ox 98.6 F 96 17 170/92 H 94 08/27/16 11:40 08/27/16 14:00 08/27/16 11:40 08/27/16 11:40 08/27/16 11:40 Intake & Output 08/26/16 08/27/16 08/28/16 06:59 06:59 06:59 Intake Total 2270 1727 330 Output Total 700 1200 400 Balance 1570 527 -70 Weight 63.7 kg 62.1 kg General appearance: PRESENT: no acute distress Eye exam: PRESENT: PERRLA Mouth exam: PRESENT: neck supple Respiratory exam: PRESENT: clear to auscultation prudencio Cardiovascular exam: PRESENT: +S1, +S2 Neurological exam: PRESENT: alert, awake Psychiatric exam: PRESENT: anxious Results Laboratory Results: 08/24/16 04:26 08/27/16 10:05 08/27/16 10:05 Sodium 140.6 Potassium 4.4 Chloride 111 H Carbon Dioxide 20 L Anion Gap 10 BUN 11 Creatinine 0.77 Est GFR ( Amer) > 60 Est GFR (Non-Af Amer) > 60 Glucose 108 Calcium 8.6 Impressions: Chest X-Ray 08/20/16 08:34 IMPRESSION: Stable chest without acute cardiopulmonary disease evident. Assessment & Plan - Diagnosis (1) Acute renal failure Qualifiers: Acute renal failure type: unspecified Qualified Code(s): N17.9 - Acute kidney failure, unspecified Is this a current diagnosis for this admission?: YesPlan: all resolving (2) Adult failure to thrive syndrome Is this a current diagnosis for this admission?: Yes (3) CAD (coronary artery disease) Qualifiers: Coronary Disease-Associated Artery/Lesion type: [place] artery Associated angina: without angina Is this a current diagnosis for this admission?: YesPlan: restat b omar (4) Dementia, multi-infarct Qualifiers: Dementia behavioral disturbance: without behavioral disturbance Qualified Code(s): F01.50 - Vascular dementia without behavioral disturbance Is this a current diagnosis for this admission?: YesPlan: d/w family if persist poor po intake (5) HLD (hyperlipidemia) Qualifiers: Hyperlipidemia type: pure hypercholesterolemia Qualified Code(s): E78.00 - Pure hypercholesterolemia, unspecified; E78.0 - Pure hypercholesterolemia Is this a current diagnosis for this admission?: Yes (6) HTN (hypertension) Qualifiers: Hypertension type: essential hypertension Qualified Code(s): I10 - Essential (primary) hypertension Is this a current diagnosis for this admission?: YesPlan: stable - Time Time Spent with patient: 15-24 minutes Anticipated discharge: SNF Within: Other - Inpatient Certification Medical Necessity: Need For IV Fluids Post Hospital Care: D/C Pole Framer Documentation - Plan Summary Plan Summary: cont curr med and still issue with poor intake consider tube fedding
[2016-08-27] MEDS: DEXTROSE 5%-NORMAL SALINE 1,000 ML IV PRN (16:55)
[2016-08-27] MEDS: TAMSULOSIN HCL 0.4 MG CAP.SR.24H PO SCH (17:58)
[2016-08-27] MEDS: ACETAMINOPHEN 650 MG SUPP.RECT PR PRN (17:58)
[2016-08-27] MEDS ORDERED: CEFEPIME 1 GM/D5W RTU 1 GM/50 ML RTUPB IV ONE (18:30)
--- NOTE | 2016-08-27 18:48 | RADIOLOGY REPORT (SQ) ---
EXAM DESCRIPTION: CHEST SINGLE VIEW COMPLETED DATE/TIME: 08/27/2016 6:37 pm REASON FOR STUDY: fever, cough COMPARISON: 08/20/2016 and 08/15/2016 EXAM PARAMETERS: NUMBER OF VIEWS: One view. TECHNIQUE: Single frontal radiographic view of the chest acquired. RADIATION DOSE: NA LIMITATIONS: Patient positioning precludes visualization of the right apical lung. FINDINGS: LUNGS AND PLEURA: Hazy opacification is seen of the left lower lung. The lungs are otherw ise clear and evenly aerated. No pneumothorax is evident given above limitations. No large pleural effusion is evident. MEDIASTINUM AND HILAR STRUCTURES: Stable. HEART AND VASCULAR STRUCTURES: Stable. BONES: No acute findings. HARDWARE: Median sternotomy wires. OTHER: No other significant finding. IMPRESSION: In the appropriate clinical setting, the development of left lung base pulmonary consoli dation may represent a developing pneumonia. Otherwise stable radiographic appearance of the chest. TECHNICAL DOCUMENTATION: JOB ID: [id number]
[2016-08-27] MEDS ORDERED: CEFEPIME INJ 1 GM VIAL ONE (18:57)
[2016-08-27] MEDS: TRAZODONE HCL 50 MG TABLET PO SCH (20:59)
[2016-08-28] MEDS: MORPHINE SULFATE 10 MG/ML INJ IV PRN ×3 (04:00→18:58)
[2016-08-28 05:14] LABS: ABSOLUTE EOSINOPHILS # (AUTO) 0.2 10^3/uL (0.0-0.6); ABSOLUTE LYMPHOCYTES (AUTO) 1.7 10^3/uL (0.5-4.7); ABSOLUTE MONOCYTES (AUTO) 0.4 10^3/uL (0.1-1.4); ABSOLUTE NEUT (AUTO) 8.7 10^3/uL (1.7-8.2); BASOPHILS % (AUTO) 0.3 % (0-2); EOSINOPHILS % (AUTO) 1.5 % (0-6); HEMATOCRIT 27.4 % (37.9-51.0); HEMOGLOBIN 8.8 g/dL (13.5-17.0); LYMPHOCYTES % (AUTO) 15.7 % (13-45); MEAN CORPUSCULAR HEMOGLOBIN 29.6 pg (27.0-33.4); MEAN CORPUSCULAR HGB CONC 32.1 g/dL (32.0-36.0); MEAN CORPUSCULAR VOLUME 92 fl (80-97); MONOCYTES % (AUTO) 3.7 % (3-13); RED BLOOD COUNT 2.97 10^6/uL (4.35-5.55); RED CELL DISTRIBUTION WIDTH 13.4 % (11.5-14.0); SEGMENTED NEUTROPHILS % (AUTO) 78.8 % (42-78)
[2016-08-28 05:28] LABS: ANION GAP 6 (5-19); BLOOD UREA NITROGEN 10 mg/dL (7-20); CALCIUM 8.6 mg/dL (8.4-10.2); CARBON DIOXIDE 23 mmol/L (22-30); CHLORIDE 111 mmol/L (98-107); CREATININE RESULT 0.77 mg/dL (0.52-1.25); GLUCOSE 107 mg/dL (75-110); SODIUM 140.1 mmol/L (137-145)
[2016-08-28] MEDS ORDERED: CEFEPIME 1 GM/D5W RTU 1 GM/50 ML RTUPB IV SCH (06:00)
[2016-08-28] MEDS: LANSOPRAZOLE 30 MG TAB.RAP.DR PO SCH (06:16)
[2016-08-28] MEDS ORDERED: CEFEPIME 1 GM/D5W RTU 1 GM/50 ML RTUPB IV ONE (06:20)
[2016-08-28] MEDS ORDERED: (PENDING PHARMACY ID) (Sennosides [Senna] 8.6 MG) PO SCH (08:00)
[2016-08-28] MEDS: SENNOSIDES/DOCUSATE 8.6-50 MG 1 EACH TABLET PO SCH (08:17)
[2016-08-28] MEDS: LANSOPRAZOLE 15 MG TAB.RAP.DR PO SCH (08:17)
[2016-08-28] MEDS: METOPROLOL SUCCINATE 25 MG TAB.SR.24H PO SCH (08:17)
[2016-08-28] MEDS: LEVOTHYROXINE SODIUM 0.075 MG TABLET PO SCH (08:17)
--- NOTE | 2016-08-28 09:57 | PDOC PROGRESS REPORT ---
Subjective Progress Note for:: 08/28/16 Subjective:: Patient is currently doing fair patient of the fever yesterday and patient have a fever workup done was consistent most likely aspirations pneumonia and patient was put on IV antibiotics and patient's remains fever free since yesterday. Patient is a very high risk of aspirations pneumonia will get the speech therapy evaluations to keep her n.p.o. until speech evaluations need to further discuss with the family about the patient's poor p.o. intake and the risk of aspirations and may be options for the G-tube placement Physical Exam Vital Signs: Temp Pulse Resp BP Pulse Ox 98.7 F 89 20 121/65 91 L 08/28/16 08:00 08/28/16 08:00 08/28/16 08:00 08/28/16 08:00 08/28/16 08:00 Intake & Output 08/27/16 08/28/16 08/29/16 06:59 06:59 06:59 Intake Total 1727 930 Output Total 1200 1420 Balance 527 -490 Weight 62.1 kg 62.1 kg General appearance: PRESENT: no acute distress Eye exam: PRESENT: PERRLA Respiratory exam: PRESENT: clear to auscultation prudencio Cardiovascular exam: PRESENT: +S1, +S2 GI/Abdominal exam: PRESENT: normal bowel sounds, soft Extremities exam: ABSENT: pedal edema Neurological exam: PRESENT: alert, awake Results Laboratory Results: 08/28/16 05:05 08/28/16 05:05 08/27/16 08/28/16 08/28/16 10:05 05:05 05:05 WBC 11.0 H RBC 2.97 L Hgb 8.8 L Hct 27.4 L MCV 92 MCH 29.6 MCHC 32.1 RDW 13.4 Plt Count 180 Seg Neutrophils % 78.8 H Lymphocytes % 15.7 Monocytes % 3.7 Eosinophils % 1.5 Basophils % 0.3 Absolute Neutrophils 8.7 H Absolute Lymphocytes 1.7 Absolute Monocytes 0.4 Absolute Eosinophils 0.2 Absolute Basophils 0.0 Sodium 140.6 140.1 Potassium 4.4 4.0 Chloride 111 H 111 H Carbon Dioxide 20 L 23 Anion Gap 10 6 BUN 11 10 Creatinine 0.77 0.77 Est GFR ( Amer) > 60 > 60 Est GFR (Non-Af Amer) > 60 > 60 Glucose 108 107 Calcium 8.6 8.6 Impressions: Chest X-Ray 08/27/16 00:00 IMPRESSION: In the appropriate clinical setting, the development of left lung base pulmonary consolidation may represent a developing pneumonia. Otherwise stable radiographic appearance of the chest. Assessment & Plan - Diagnosis (1) Acute renal failure Qualifiers: Acute renal failure type: unspecified Qualified Code(s): N17.9 - Acute kidney failure, unspecified Is this a current diagnosis for this admission?: YesPlan: Currently all better (2) Adult failure to thrive syndrome Is this a current diagnosis for this admission?: YesPlan: Patients have very high risk of aspirations will defer to Dr. Gamboa for further evaluation about the tube placements and also discussed with the family (3) CAD (coronary artery disease) Qualifiers: Coronary Disease-Associated Artery/Lesion type: [place] artery Associated angina: without angina Is this a current diagnosis for this admission?: YesPlan: restat b omar (4) Dementia, multi-infarct Qualifiers: Dementia behavioral disturbance: without behavioral disturbance Qualified Code(s): F01.50 - Vascular dementia without behavioral disturbance Is this a current diagnosis for this admission?: YesPlan: d/w family if persist poor po intake (5) HLD (hyperlipidemia) Qualifiers: Hyperlipidemia type: pure hypercholesterolemia Qualified Code(s): E78.00 - Pure hypercholesterolemia, unspecified; E78.0 - Pure hypercholesterolemia Is this a current diagnosis for this admission?: Yes (6) HTN (hypertension) Qualifiers: Hypertension type: essential hypertension Qualified Code(s): I10 - Essential (primary) hypertension Is this a current diagnosis for this admission?: YesPlan: stable (7) Pneumonia Qualifiers: Pneumonia type: aspiration pneumonia Is this a current diagnosis for this admission?: YesPlan: Start the patient on IV antibiotic - Time Time Spent with patient: 15-24 minutes Medications reviewed and adjusted accordingly: Yes Anticipated discharge: Other Within: Other - Inpatient Certification Medical Necessity: Need For IV Fluids, Need for IV Antibiotics 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
[2016-08-28] MEDS: ENOXAPARIN SODIUM INJ 30 MG/0.3 ML DISP.SYRIN SUBCUT SCH (10:17)
[2016-08-28] MEDS: FINASTERIDE 5 MG TABLET PO SCH (10:18)
[2016-08-28] MEDS: COLLAGENASE CLOSTRIDIUM HIST. OINT 30 GM TOP SCH (10:18)
[2016-08-28] MEDS: NYSTATIN 500000 UNIT/5 ML UDCUP PO SCH ×4 (10:18→21:29)
[2016-08-28] MEDS: DEXTROSE 5%-NORMAL SALINE 1,000 ML IV PRN (14:39)
[2016-08-28] MEDS: CEFEPIME HCL 1 GM in DEXTROSE 5%-WATER 50 ML IV SCH (17:51)
[2016-08-28] MEDS: TAMSULOSIN HCL 0.4 MG CAP.SR.24H PO SCH (17:51)
[2016-08-28] MEDS: TRAZODONE HCL 50 MG TABLET PO SCH (21:29)
[2016-08-29] MEDS: CEFEPIME HCL 1 GM in DEXTROSE 5%-WATER 50 ML IV SCH ×2 (05:16→17:15)
[2016-08-29] MEDS: MORPHINE SULFATE 10 MG/ML INJ IV PRN ×3 (05:18→21:45)
[2016-08-29] MEDS: LANSOPRAZOLE 30 MG TAB.RAP.DR PO SCH (05:19)
[2016-08-29 05:29] LABS: ABSOLUTE EOSINOPHILS # (AUTO) 0.2 10^3/uL (0.0-0.6); ABSOLUTE LYMPHOCYTES (AUTO) 1.2 10^3/uL (0.5-4.7); ABSOLUTE MONOCYTES (AUTO) 0.5 10^3/uL (0.1-1.4); BASOPHILS % (AUTO) 0.3 % (0-2); EOSINOPHILS % (AUTO) 3.3 % (0-6); HEMATOCRIT 30.2 % (37.9-51.0); HEMOGLOBIN 9.6 g/dL (13.5-17.0); HGB HCT DIFFERENCE -1.4; LYMPHOCYTES % (AUTO) 17.9 % (13-45); MEAN CORPUSCULAR HEMOGLOBIN 28.8 pg (27.0-33.4); MEAN CORPUSCULAR HGB CONC 31.9 g/dL (32.0-36.0); MEAN CORPUSCULAR VOLUME 91 fl (80-97); MONOCYTES % (AUTO) 6.7 % (3-13); RED BLOOD COUNT 3.34 10^6/uL (4.35-5.55); RED CELL DISTRIBUTION WIDTH 13.4 % (11.5-14.0); SEGMENTED NEUTROPHILS % (AUTO) 71.8 % (42-78)
[2016-08-29 05:33] LABS: ANION GAP 8 (5-19); BLOOD UREA NITROGEN 8 mg/dL (7-20); CALCIUM 8.5 mg/dL (8.4-10.2); CARBON DIOXIDE 25 mmol/L (22-30); CHLORIDE 108 mmol/L (98-107); CREATININE RESULT 0.74 mg/dL (0.52-1.25); GLUCOSE 91 mg/dL (75-110); POTASSIUM 3.4 mmol/L (3.6-5.0); SODIUM 140.6 mmol/L (137-145)
[2016-08-29] MEDS: MULTIVITS W-MIN/IRON SOLN 60 ML PO SCH (09:50)
[2016-08-29] MEDS: LEVOTHYROXINE SODIUM 0.075 MG TABLET PO SCH (10:12)
[2016-08-29] MEDS: LANSOPRAZOLE 15 MG TAB.RAP.DR PO SCH (10:12)
[2016-08-29] MEDS: METOPROLOL SUCCINATE 25 MG TAB.SR.24H PO SCH (10:13)
[2016-08-29] MEDS: ENOXAPARIN SODIUM INJ 30 MG/0.3 ML DISP.SYRIN SUBCUT SCH (10:13)
[2016-08-29] MEDS: SENNOSIDES/DOCUSATE 8.6-50 MG 1 EACH TABLET PO SCH (10:13)
[2016-08-29] MEDS: FINASTERIDE 5 MG TABLET PO SCH (10:13)
[2016-08-29] MEDS: COLLAGENASE CLOSTRIDIUM HIST. OINT 30 GM TOP SCH (10:14)
[2016-08-29] MEDS ORDERED: NYSTATIN 500000 UNIT/5 ML UDCUP PO SCH (14:00)
--- NOTE | 2016-08-29 14:47 | ST Inp Modified Barium Swallow ---
Medical Diagnosis - Medical Diagnoses Medical Diagnosis Description & ICD-10 Code(s): aspiration PNA - ICD-10 Tx Diagnosis Coding (1) Dysphagia, oropharyngeal phase ICD-10 Code(s): R13.12 - DYSPHAGIA, OROPHARYNGEAL PHASE (2) Dysphagia, oral phase ICD-10 Code(s): R13.11 - DYSPHAGIA, ORAL PHASE (3) Dysphagia, pharyngeal phase ICD-10 Code(s): R13.13 - DYSPHAGIA, PHARYNGEAL PHASE ST Inpatient MBS - General Date: 08/29/16 Date of Onset: 08/20/16 - History History Obtained From: Patient - Per EMR -: Medical - per EMR; hypernatremia, dehydration, esophageal candidiasis, acute renal failure, UTI, oral thrush, SOB, HLD, HTN, CAD, dementia multi infarct. Chest xray shows stable chest without acute cardiopulmonary disease evident. PMHx: recurrent stroke with dysphagia, IA, HLD, HTN, diabetes. ST evaluation re- ordered by Dr Eliseo CAREY states MD recommended NPO until seen by ST. MBSS ordered per family request for assessment of swallow function and aspiration. Medications: Medications Reviewed Allergies: Refer to medical record - Subjective Current Nutritional Means: PO Current PO Diet: Pureed, Thickened liquids - nectar, pt's son reports thinning down nectar Current Symptoms: Poor intake, Coughing, Pneumonia, Aspiration Pain: unable to communicate - pt observed to moan with movement, unable to quantify pain - Objective Assessment: Upright, Left Lateral - Food Trials Food Trials Used: Thin liquids, Honey-thickened liquids, [place] thick liquids, Pureed The Patient: fed by ST - Assessment Labial Function: Impaired - impaired seal, impaired ROM Lingual Function: Impaired - dry inflammed tongue. reduced bolus control Mandibular Function: Impaired - weak Dentition: Edentulous Velo-Pharyngeal Function: Unremarkable Laryngeal Function: Volitional Cough, Volitional Swallow - Pharyngeal Stage Initiation of Pharyngeal Stage: Delayed Reflex Delay Time (seconds): 2 Decreased Laryngeal Elevation: Yes - moderate Reduced Velo-Pharyngeal Closure: no Reduced Pressure Generation: Yes - moderate Reduced Tongue Base Retraction: Yes - moderate Pre-Swallowing Pooling in Valleculae: Mild - on thickened liquids, Moderate - on thin Pre-Swallowing Pooling in Pyriforms: Mild - on thin Reduced Thyro-Hyiod Approximation: Yes - moderate Reduced Epiglottic Excursion: Yes - moderate Reduced Pharyngeal Peristalsis: Yes - moderate Multiple Swallows With: Cleared w/ Dry Swallow Post Swallow Residuals in Valleculae: Moderate - mild-moderate on nectar, honey , and pudding Post Swallow Residuals in Pyriforms: Moderate - mild-moderate on nectar, honey and pudding. decreased sensation observed. Pt able to clear residuals with second swallow initiated by ST. - Impression/Summary Laryngeal Penetration: Yes, Deep - on thin and nectar, Delayed cough, during swallow, after swallow Tracheal Aspiration: yes - on thin, deep, delayed cough, during swallow, after swallow Patient Presents With: Oral stage dysphagia, Pharyngeal stage dysph., Oral- Pharyngeal dysph., Severe - moderate-severe Risk of Aspiration: Severe - pt is at risk of aspiration on any diet. without strategies and modifications pt at profound risk of aspiration. reduced risk of aspiration on modified diet with strategies (mild-moderate). Risk of Nutritional Compromise: Severe - moderate-severe pt's son reports decreased PO intake - Recommendations NPO: no Solid Diet Recommendations: Pureed Liquid Diet Recommendations: Honey-Thick Strict Aspitarion Precautions: Yes Dysphagia Therapy with TEST BORER: No - son verbalized understanding and is in agreement Recommended Techniques: Fully Upright During Meal, Small Bites and Sips Supervision: requires assistance Other Recommendations: 1) DIET: recommend puree solids and honey thick liquids. Pt is at risk of aspiration on any consistency. Reduced risk of aspiration on recommended diet with strategies. Son verbalized understanding and is in agreement. MD in agreement with diet change. Concerns for adequate PO intake, pt 's son reports reduced PO intake. 2) STRATEGIES: small bites and sips, no straws, second swallow after all consistencies, fully upright during meals. ST to sign off at this time as pt is unable to complete dysphagia exercises with ST. Please re-consult PRN. - Time Total Time: 25 Total Timed Minutes: 0 ST F.L. Impairment Category - Rationale Based On Rationale Based On: Clin Find., Obj Measures - Swallowing Current G8996: CM 80-99% Impaired Goal G8997: CM 80-99% Impaired Discharge G8998: CM 80-99% Impaired
[2016-08-29] MEDS: TAMSULOSIN HCL 0.4 MG CAP.SR.24H PO SCH (17:22)
--- NOTE | 2016-08-29 17:52 | RADIOLOGY REPORT (SQ) ---
EXAM DESCRIPTION: COOKIE SWALLOW COMPLETED DATE/TIME: 08/29/2016 2:39 pm REASON FOR STUDY: Dysphagia R13.10, food in pharynx casing injury, sequela T17.228S, aspiration PNA COMPARISON: Cookie swallow 10/07/2010 TECHNIQUE: Videofluoroscopic swallowing examination was performed in conjunction with speech patholo gy. Videofluoroscopic imaging was obtained and reviewed and these are the findings: RADIATION DOSE: Total fluoro time: 2 min 4 sec 2 fluoro images saved to PACS. LIMITATIONS: None FINDINGS: The patient was brought into the fluoro room and placed upright on a modified barium swall ow chair. The patient was then given multiple consistencies mixed with barium to swallow under live fluoroscopic video guidance. According to the Speech Pathologist there was laryngeal penetration wit h thin, nectar, and post swallow residuals. Tracheal aspiration was noted with thin liquids and post swallow residuals following thin liquids. Moderate oral and pharyngeal phase delay is noted. Moder ate post swallow residual is seen. Please see speech pathology report for further details and recomm endations. IMPRESSION: 1. TRACHEAL ASPIRATION OF THIN LIQUIDS AND POST SWALLOW RESIDUALS FOLLOWING THIN LIQUIDS . 2. LARYNGEAL PENETRATION WITH NECTAR AND POST SWALLOW RESIDUALS OF MULTIPLE CONSISTENCIES. 3.PLEASE SEE SPEECH PATHOLOGIST REPORT FOR OTHER FINDINGS AND RECOMMENDATIONS. COMMENT: Quality ID [id number]: Final reports for procedures using fluoroscopy that document radiation exp osure indices, or exposure time and number of fluorographic images (if radiation exposure indices are not available) TECHNICAL DOCUMENTATION: JOB ID: [id number] [employer]- All Rights Reserved
--- NOTE | 2016-08-29 19:20 | PDOC PROGRESS REPORT ---
Subjective Progress Note for:: 08/29/16 Subjective:: No reported fever or chills. No chest pain or difficulty with breathing. There is interval development of aspiration pneumonia since last clinical evaluation by myself. Daughter at bedside. Patient had swallowing evaluation with modified barium swallow test conducted earlier today by speech pathologist. No nausea, vomiting, or abdominal pain. Physical Exam Vital Signs: Temp Pulse Resp BP Pulse Ox 98.3 F 53 L 19 137/80 H 91 L 08/29/16 16:24 08/29/16 16:24 08/29/16 16:24 08/29/16 16:24 08/29/16 16:24 Intake & Output 08/28/16 08/29/16 08/30/16 06:59 06:59 06:59 Intake Total 930 1481 625 Output Total 1420 1700 600 Balance -490 -219 25 Weight 62.1 kg 62.1 kg Physical Exam: General appearance: PRESENT: no acute distress, cooperative Head exam: PRESENT: atraumatic, normocephalic Eye exam: PRESENT: conjunctiva pink, EOMI, PERRLA. ABSENT: scleral icterus Mouth exam: PRESENT: moist. ABSENT: excessive saliva and secretion collection Respiratory exam: PRESENT: clear to auscultation prudencio, decreased breath sounds - at lung bases. Cardiovascular exam: PRESENT: RRR. ABSENT: diastolic murmur, rubs, systolic murmur GI/Abdominal exam: PRESENT: normal bowel sounds, soft. ABSENT: distended, guarding, mass, organomegaly, rebound, tenderness Extremities exam: ABSENT: pedal edema Neurological exam: PRESENT: altered - due to base line dementia but appropriate in simple responses Psychiatric exam: PRESENT: appropriate affect Skin exam: PRESENT: dry, warm, other - left heel pressure ulcer Results Laboratory Results: 08/29/16 04:12 08/29/16 04:12 08/29/16 08/29/16 04:12 04:12 WBC 7.0 RBC 3.34 L Hgb 9.6 L Hct 30.2 L MCV 91 MCH 28.8 MCHC 31.9 L RDW 13.4 Plt Count 173 Seg Neutrophils % 71.8 Lymphocytes % 17.9 Monocytes % 6.7 Eosinophils % 3.3 Basophils % 0.3 Absolute Neutrophils 5.0 Absolute Lymphocytes 1.2 Absolute Monocytes 0.5 Absolute Eosinophils 0.2 Absolute Basophils 0.0 Sodium 140.6 Potassium 3.4 L Chloride 108 H Carbon Dioxide 25 Anion Gap 8 BUN 8 Creatinine 0.74 Est GFR ( Amer) > 60 Est GFR (Non-Af Amer) > 60 Glucose 91 Calcium 8.5 08/27/16 18:55 Catheterized Urine Urine Culture - Final NO GROWTH 2 DAYS Impressions: Chest X-Ray 08/27/16 00:00 IMPRESSION: In the appropriate clinical setting, the development of left lung base pulmonary consolidation may represent a developing pneumonia. Otherwise stable radiographic appearance of the chest. Modified Barium Swallow 08/29/16 00:00 IMPRESSION: 1. TRACHEAL ASPIRATION OF THIN LIQUIDS AND POST SWALLOW RESIDUALS FOLLOWING THIN LIQUIDS. 2. LARYNGEAL PENETRATION WITH NECTAR AND POST SWALLOW RESIDUALS OF MULTIPLE CONSISTENCIES. 3.PLEASE SEE SPEECH PATHOLOGIST REPORT FOR OTHER FINDINGS AND RECOMMENDATIONS. Assessment & Plan - Diagnosis (1) Acute renal failure Qualifiers: Acute renal failure type: unspecified Qualified Code(s): N17.9 - Acute kidney failure, unspecified Is this a current diagnosis for this admission?: YesPlan: Improving renal indices. See attending physician orders. (2) Dehydration Is this a current diagnosis for this admission?: YesPlan: See admitting physician orders. Improving with resolved hypernatremia. (3) Hypernatremia Is this a current diagnosis for this admission?: YesPlan: Resolved hypernatremia. Remain on IV fluid hydration. See attending physician orders. (4) UTI (urinary tract infection) Qualifiers: Urinary tract infection type: acute cystitis Hematuria presence: without hematuria Qualified Code(s): N30.00 - Acute cystitis without hematuria Is this a current diagnosis for this admission?: YesPlan: See attending physician orders. (5) HTN (hypertension) Qualifiers: Hypertension type: essential hypertension Qualified Code(s): I10 - Essential (primary) hypertension Is this a current diagnosis for this admission?: YesPlan: See admitting physician orders (6) HLD (hyperlipidemia) Qualifiers: Hyperlipidemia type: pure hypercholesterolemia Qualified Code(s): E78.00 - Pure hypercholesterolemia, unspecified; E78.0 - Pure hypercholesterolemia Is this a current diagnosis for this admission?: Yes (7) CAD (coronary artery disease) Qualifiers: Coronary Disease-Associated Artery/Lesion type: [place] artery Associated angina: without angina Is this a current diagnosis for this admission?: Yes (8) Old [place] (myocardial infarction) Is this a current diagnosis for this admission?: Yes (9) Dementia, multi-infarct Qualifiers: Dementia behavioral disturbance: without behavioral disturbance Qualified Code(s): F01.50 - Vascular dementia without behavioral disturbance Is this a current diagnosis for this admission?: YesPlan: See admitting physician orders (10) Excessive oral secretions Is this a current diagnosis for this admission?: No (11) Adult failure to thrive syndrome Is this a current diagnosis for this admission?: YesPlan: Encourage use of oral supplementation. Maintain on honey thicken fluid and full aspiration precautions. (12) Aspiration pneumonia Qualifiers: Aspiration pneumonia type: due to regurgitated food Laterality: unspecified laterality Is this a current diagnosis for this admission?: YesPlan: Continue IV Cefepime coverage. - Time Time Spent with patient: 25-34 minutes Medications reviewed and adjusted accordingly: Yes Anticipated discharge: Home with Homehealth Within: Other - Inpatient Certification Medical Necessity: Need Close Monitoring Due to Risk of Patient Decompensation, Need For IV Fluids, Need For Continuous Telemetry Monitoring, Need for IV Antibiotics, Risk of Complication if Not Cared For in Hospital Post Hospital Care: D/C Education Counselor Documentation - Plan Summary Plan Summary: See attending physician orders.
[2016-08-29] MEDS: TRAZODONE HCL 50 MG TABLET PO SCH (21:23)
[2016-08-29] MEDS: POTASSI CL 20 MEQ/50 ML RIDER 20 MEQ/50 ML RTUPB IV SCH ×2 (21:23→22:05)
[2016-08-30 05:08] LABS: ANION GAP 7 (5-19); BLOOD UREA NITROGEN 8 mg/dL (7-20); CALCIUM 8.6 mg/dL (8.4-10.2); CARBON DIOXIDE 24 mmol/L (22-30); CHLORIDE 111 mmol/L (98-107); CREATININE RESULT 0.79 mg/dL (0.52-1.25); GLUCOSE 97 mg/dL (75-110); SODIUM 142.3 mmol/L (137-145)
[2016-08-30] MEDS: CEFEPIME HCL 1 GM in DEXTROSE 5%-WATER 50 ML IV SCH ×2 (05:56→17:01)
[2016-08-30] MEDS: MORPHINE SULFATE 10 MG/ML INJ IV PRN ×3 (05:56→16:57)
[2016-08-30] MEDS: LANSOPRAZOLE 30 MG TAB.RAP.DR PO SCH (05:57)
[2016-08-30] MEDS: SENNOSIDES/DOCUSATE 8.6-50 MG 1 EACH TABLET PO SCH (08:01)
[2016-08-30] MEDS: LEVOTHYROXINE SODIUM 0.075 MG TABLET PO SCH (08:01)
[2016-08-30] MEDS: LANSOPRAZOLE 15 MG TAB.RAP.DR PO SCH (08:01)
[2016-08-30] MEDS: METOPROLOL SUCCINATE 25 MG TAB.SR.24H PO SCH (08:02)
[2016-08-30] MEDS: ENOXAPARIN SODIUM INJ 30 MG/0.3 ML DISP.SYRIN SUBCUT SCH (09:36)
[2016-08-30] MEDS: FINASTERIDE 5 MG TABLET PO SCH (09:37)
[2016-08-30] MEDS: COLLAGENASE CLOSTRIDIUM HIST. OINT 30 GM TOP SCH (11:24)
[2016-08-30] MEDS: MULTIVITS W-MIN/IRON SOLN 60 ML PO SCH (11:37)
[2016-08-30] MEDS: DEXTROSE 5%-NORMAL SALINE 1,000 ML IV PRN (13:03)
[2016-08-30] MEDS: TAMSULOSIN HCL 0.4 MG CAP.SR.24H PO SCH (17:00)
--- NOTE | 2016-08-30 18:42 | PDOC PROGRESS REPORT ---
Subjective Progress Note for:: 08/30/16 Subjective:: P.O intake remain a challenge due to increase aspiration risk. No nausea, vomiting, or abdominal pain. Daughter at bedside expressed family wish to have evening vitals monitor discontinue so that patient may sleep through the night. No reported fever or chills. No chest pain or difficulty with breathing. Physical Exam Vital Signs: Temp Pulse Resp BP Pulse Ox 98.1 F 79 19 139/88 H 99 08/30/16 16:16 08/30/16 16:16 08/30/16 16:16 08/30/16 16:16 08/30/16 16:16 Intake & Output 08/29/16 08/30/16 08/31/16 06:59 06:59 06:59 Intake Total 7524 221 2627 Output Total 1700 1600 450 Balance -219 875 1553 Weight 62.1 kg Physical Exam: General appearance: PRESENT: no acute distress, cooperative Head exam: PRESENT: atraumatic, normocephalic Eye exam: PRESENT: conjunctiva pink, EOMI, PERRLA. ABSENT: scleral icterus Mouth exam: PRESENT: moist. ABSENT: excessive saliva and secretion collection Respiratory exam: PRESENT: clear to auscultation prudencio, decreased breath sounds - at lung bases. Cardiovascular exam: PRESENT: RRR. ABSENT: diastolic murmur, rubs, systolic murmur GI/Abdominal exam: PRESENT: normal bowel sounds, soft. ABSENT: distended, guarding, mass, organomegaly, rebound, tenderness Extremities exam: ABSENT: pedal edema Neurological exam: PRESENT: altered - due to base line dementia but appropriate in simple responses Psychiatric exam: PRESENT: appropriate affect Skin exam: PRESENT: dry, warm, other - left heel pressure ulcer Results Laboratory Results: 08/29/16 04:12 08/30/16 04:17 08/29/16 08/30/16 04:12 04:17 Sodium 142.3 Potassium 4.0 Chloride 111 H Carbon Dioxide 24 Anion Gap 7 BUN 8 Creatinine 0.79 Est GFR ( Amer) > 60 Est GFR (Non-Af Amer) > 60 Glucose 97 Calcium 8.6 Magnesium 2.0 Impressions: Chest X-Ray 08/27/16 00:00 IMPRESSION: In the appropriate clinical setting, the development of left lung base pulmonary consolidation may represent a developing pneumonia. Otherwise stable radiographic appearance of the chest. Modified Barium Swallow 08/29/16 00:00 IMPRESSION: 1. TRACHEAL ASPIRATION OF THIN LIQUIDS AND POST SWALLOW RESIDUALS FOLLOWING THIN LIQUIDS. 2. LARYNGEAL PENETRATION WITH NECTAR AND POST SWALLOW RESIDUALS OF MULTIPLE CONSISTENCIES. 3.PLEASE SEE SPEECH PATHOLOGIST REPORT FOR OTHER FINDINGS AND RECOMMENDATIONS. Assessment & Plan - Diagnosis (1) Acute renal failure Qualifiers: Acute renal failure type: unspecified Qualified Code(s): N17.9 - Acute kidney failure, unspecified Is this a current diagnosis for this admission?: Yes (2) Dehydration Is this a current diagnosis for this admission?: Yes (3) Hypernatremia Is this a current diagnosis for this admission?: Yes (4) UTI (urinary tract infection) Qualifiers: Urinary tract infection type: acute cystitis Hematuria presence: without hematuria Qualified Code(s): N30.00 - Acute cystitis without hematuria Is this a current diagnosis for this admission?: Yes (5) HTN (hypertension) Qualifiers: Hypertension type: essential hypertension Qualified Code(s): I10 - Essential (primary) hypertension Is this a current diagnosis for this admission?: Yes (6) HLD (hyperlipidemia) Qualifiers: Hyperlipidemia type: pure hypercholesterolemia Qualified Code(s): E78.00 - Pure hypercholesterolemia, unspecified; E78.0 - Pure hypercholesterolemia Is this a current diagnosis for this admission?: Yes (7) CAD (coronary artery disease) Qualifiers: Coronary Disease-Associated Artery/Lesion type: [place] artery Associated angina: without angina Is this a current diagnosis for this admission?: Yes (8) Old [place] (myocardial infarction) Is this a current diagnosis for this admission?: Yes (9) Dementia, multi-infarct Qualifiers: Dementia behavioral disturbance: without behavioral disturbance Qualified Code(s): F01.50 - Vascular dementia without behavioral disturbance Is this a current diagnosis for this admission?: Yes (10) Excessive oral secretions Is this a current diagnosis for this admission?: No (11) Adult failure to thrive syndrome Is this a current diagnosis for this admission?: Yes (12) Aspiration pneumonia Qualifiers: Aspiration pneumonia type: due to regurgitated food Laterality: unspecified laterality Is this a current diagnosis for this admission?: YesPlan: Continue antibiotic coverage. Obtain portable chest X ray in AM. 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
[2016-08-30] MEDS: TRAZODONE HCL 50 MG TABLET PO SCH (21:28)
[2016-08-31] MEDS: MORPHINE SULFATE 10 MG/ML INJ IV PRN ×3 (05:33→22:21)
[2016-08-31] MEDS: LANSOPRAZOLE 30 MG TAB.RAP.DR PO SCH (05:34)
[2016-08-31] MEDS: CEFEPIME HCL 1 GM in DEXTROSE 5%-WATER 50 ML IV SCH ×2 (05:34→17:56)
[2016-08-31] MEDS: LANSOPRAZOLE 15 MG TAB.RAP.DR PO SCH (08:12)
[2016-08-31] MEDS: LEVOTHYROXINE SODIUM 0.075 MG TABLET PO SCH (08:12)
[2016-08-31] MEDS: SENNOSIDES/DOCUSATE 8.6-50 MG 1 EACH TABLET PO SCH (08:12)
[2016-08-31] MEDS: METOPROLOL SUCCINATE 25 MG TAB.SR.24H PO SCH (08:20)
--- NOTE | 2016-08-31 08:59 | RADIOLOGY REPORT (SQ) ---
EXAM DESCRIPTION: CHEST SINGLE VIEW COMPLETED DATE/TIME: 08/31/2016 8:49 am REASON FOR STUDY: Aspiration pneumonia left lung base. COMPARISON: 08/27/2016 EXAM PARAMETERS: NUMBER OF VIEWS: One view. TECHNIQUE: Single frontal radiographic view of the chest acquired. RADIATION DOSE: NA LIMITATIONS: None. FINDINGS: LUNGS AND PLEURA: There is considerable opacification in the left mid and lower lung field s. Scattered air bronchograms are present. MEDIASTINUM AND HILAR STRUCTURES: No masses. Contour normal. HEART AND VASCULAR STRUCTURES: Heart normal in size. Normal vasculature. BONES: No acute findings. HARDWARE: Sternotomy wires. OTHER: No other significant finding. IMPRESSION: Left lower lobe pneumonia and left upper lobe or lingular pneumonia. TECHNICAL DOCUMENTATION: JOB ID: [id number]
[2016-08-31] MEDS: FINASTERIDE 5 MG TABLET PO SCH (10:07)
[2016-08-31] MEDS: ENOXAPARIN SODIUM INJ 30 MG/0.3 ML DISP.SYRIN SUBCUT SCH (10:07)
[2016-08-31] MEDS: MULTIVITS W-MIN/IRON SOLN 60 ML PO SCH (10:07)
[2016-08-31] MEDS: DEXTROSE 5%-NORMAL SALINE 1,000 ML IV PRN (10:08)
[2016-08-31] MEDS: COLLAGENASE CLOSTRIDIUM HIST. OINT 30 GM TOP SCH (11:59)
--- NOTE | 2016-08-31 17:39 | PDOC PROGRESS REPORT ---
Subjective Progress Note for:: 08/31/16 Subjective:: Daughter at bedside reported poor P.O intake with breakfast and dinner effort is pending. Lunch was not too bad but aspiration risk remain real. No nausea, vomiting, or abdominal pain. No reported fever or chills. No chest pain or difficulty with breathing. Physical Exam Vital Signs: Temp Pulse Resp BP Pulse Ox 98.5 F 74 18 132/49 H 93 08/31/16 08:43 08/31/16 08:43 08/31/16 08:43 08/31/16 08:43 08/31/16 08:43 Intake & Output 08/30/16 08/31/16 09/01/16 06:59 06:59 06:59 Intake Total 725 2003 Output Total 1600 450 Balance -875 1553 Physical Exam: General appearance: PRESENT: no acute distress, cooperative Head exam: PRESENT: atraumatic, normocephalic Eye exam: PRESENT: conjunctiva pink, EOMI, PERRLA. ABSENT: scleral icterus Mouth exam: PRESENT: moist. ABSENT: excessive saliva and secretion collection Respiratory exam: PRESENT: clear to auscultation prudencio, decreased breath sounds - at lung bases. Cardiovascular exam: PRESENT: RRR. ABSENT: diastolic murmur, rubs, systolic murmur GI/Abdominal exam: PRESENT: normal bowel sounds, soft. ABSENT: distended, guarding, mass, organomegaly, rebound, tenderness Extremities exam: ABSENT: pedal edema Neurological exam: PRESENT: altered - due to base line dementia but appropriate in simple responses Psychiatric exam: PRESENT: appropriate affect Skin exam: PRESENT: dry, warm, other - left heel pressure ulcer Results Laboratory Results: 08/29/16 04:12 08/30/16 04:17 Impressions: Modified Barium Swallow 08/29/16 00:00 IMPRESSION: 1. TRACHEAL ASPIRATION OF THIN LIQUIDS AND POST SWALLOW RESIDUALS FOLLOWING THIN LIQUIDS. 2. LARYNGEAL PENETRATION WITH NECTAR AND POST SWALLOW RESIDUALS OF MULTIPLE CONSISTENCIES. 3.PLEASE SEE SPEECH PATHOLOGIST REPORT FOR OTHER FINDINGS AND RECOMMENDATIONS. Chest X-Ray 08/31/16 08:00 IMPRESSION: Left lower lobe pneumonia and left upper lobe or lingular pneumonia. Assessment & Plan - Diagnosis (1) Acute renal failure Qualifiers: Acute renal failure type: unspecified Qualified Code(s): N17.9 - Acute kidney failure, unspecified Is this a current diagnosis for this admission?: Yes (2) Dehydration Is this a current diagnosis for this admission?: Yes (3) Hypernatremia Is this a current diagnosis for this admission?: Yes (4) UTI (urinary tract infection) Qualifiers: Urinary tract infection type: acute cystitis Hematuria presence: without hematuria Qualified Code(s): N30.00 - Acute cystitis without hematuria Is this a current diagnosis for this admission?: Yes (5) HTN (hypertension) Qualifiers: Hypertension type: essential hypertension Qualified Code(s): I10 - Essential (primary) hypertension Is this a current diagnosis for this admission?: Yes (6) HLD (hyperlipidemia) Qualifiers: Hyperlipidemia type: pure hypercholesterolemia Qualified Code(s): E78.00 - Pure hypercholesterolemia, unspecified; E78.0 - Pure hypercholesterolemia Is this a current diagnosis for this admission?: Yes (7) CAD (coronary artery disease) Qualifiers: Coronary Disease-Associated Artery/Lesion type: [place] artery Associated angina: without angina Is this a current diagnosis for this admission?: Yes (8) Old PR (myocardial infarction) Is this a current diagnosis for this admission?: Yes (9) Dementia, multi-infarct Qualifiers: Dementia behavioral disturbance: without behavioral disturbance Qualified Code(s): F01.50 - Vascular dementia without behavioral disturbance Is this a current diagnosis for this admission?: Yes (10) Excessive oral secretions Is this a current diagnosis for this admission?: No (11) Adult failure to thrive syndrome Is this a current diagnosis for this admission?: Yes (12) Aspiration pneumonia Qualifiers: Aspiration pneumonia type: due to regurgitated food Laterality: unspecified laterality Is this a current diagnosis for this admission?: Yes - Time Time Spent with patient: 25-34 minutes Medications reviewed and adjusted accordingly: Yes Anticipated discharge: Home with Homehealth Within: Other - Inpatient Certification Medical Necessity: Need Close Monitoring Due to Risk of Patient Decompensation, Need For IV Fluids, Need For Continuous Telemetry Monitoring, Need for IV Antibiotics, Risk of Complication if Not Cared For in Hospital 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 Obtain CBC with diff and CMP in AM. Continue all other current medication management and IV fluid support. Overall prognosis remain poor.
[2016-08-31] MEDS: TAMSULOSIN HCL 0.4 MG CAP.SR.24H PO SCH (17:48)
[2016-08-31] MEDS: TRAZODONE HCL 50 MG TABLET PO SCH (22:21)
[2016-09-01] MEDS: LANSOPRAZOLE 30 MG TAB.RAP.DR PO SCH (04:55)
[2016-09-01 05:01] LABS: ABSOLUTE EOSINOPHILS # (AUTO) 0.3 10^3/uL (0.0-0.6); ABSOLUTE LYMPHOCYTES (AUTO) 1.7 10^3/uL (0.5-4.7); ABSOLUTE MONOCYTES (AUTO) 0.5 10^3/uL (0.1-1.4); ABSOLUTE NEUT (AUTO) 5.1 10^3/uL (1.7-8.2); BASOPHILS % (AUTO) 0.6 % (0-2); EOSINOPHILS % (AUTO) 3.4 % (0-6); HEMATOCRIT 30.3 % (37.9-51.0); HEMOGLOBIN 9.6 g/dL (13.5-17.0); HGB HCT DIFFERENCE -1.5; LYMPHOCYTES % (AUTO) 21.8 % (13-45); MEAN CORPUSCULAR HEMOGLOBIN 28.9 pg (27.0-33.4); MEAN CORPUSCULAR HGB CONC 31.6 g/dL (32.0-36.0); MEAN CORPUSCULAR VOLUME 91 fl (80-97); MONOCYTES % (AUTO) 7.1 % (3-13); RED BLOOD COUNT 3.31 10^6/uL (4.35-5.55); RED CELL DISTRIBUTION WIDTH 13.7 % (11.5-14.0); SEGMENTED NEUTROPHILS % (AUTO) 67.1 % (42-78); WHITE BLOOD COUNT 7.7 10^3/uL (4.0-10.5)
[2016-09-01] MEDS: CEFEPIME HCL 1 GM in DEXTROSE 5%-WATER 50 ML IV SCH ×2 (05:01→18:17)
[2016-09-01 05:21] LABS: ALANINE AMINOTRANSFERASE 38 U/L (21-72); ALBUMIN 2.6 g/dL (3.5-5.0); ALKALINE PHOSPHATASE 94 U/L (38-126); ANION GAP 7 (5-19); ASPARTATE AMINO TRANSFERASE 51 U/L (17-59); BILIRUBIN,DIRECT 0.3 mg/dL (0.0-0.4); BILIRUBIN,TOTAL 0.3 mg/dL (0.2-1.3); BLOOD UREA NITROGEN 7 mg/dL (7-20); CALCIUM 8.9 mg/dL (8.4-10.2); CARBON DIOXIDE 26 mmol/L (22-30); CHLORIDE 108 mmol/L (98-107); CREATININE RESULT 0.78 mg/dL (0.52-1.25); GLUCOSE 99 mg/dL (75-110); POTASSIUM 4.5 mmol/L (3.6-5.0); SODIUM 140.6 mmol/L (137-145); TOTAL PROTEIN 6.6 g/dL (6.3-8.2)
[2016-09-01] MEDS: ENOXAPARIN SODIUM INJ 30 MG/0.3 ML DISP.SYRIN SUBCUT SCH (09:29)
[2016-09-01] MEDS: LANSOPRAZOLE 15 MG TAB.RAP.DR PO SCH (09:31)
[2016-09-01] MEDS: FINASTERIDE 5 MG TABLET PO SCH (09:32)
[2016-09-01] MEDS: METOPROLOL SUCCINATE 25 MG TAB.SR.24H PO SCH (09:33)
[2016-09-01] MEDS: SENNOSIDES/DOCUSATE 8.6-50 MG 1 EACH TABLET PO SCH (09:34)
[2016-09-01] MEDS: LEVOTHYROXINE SODIUM 0.075 MG TABLET PO SCH (09:34)
[2016-09-01] MEDS: MULTIVITS W-MIN/IRON SOLN 60 ML PO SCH (09:36)
[2016-09-01] MEDS: COLLAGENASE CLOSTRIDIUM HIST. OINT 30 GM TOP SCH (09:45)
[2016-09-01] MEDS: TAMSULOSIN HCL 0.4 MG CAP.SR.24H PO SCH (18:17)
--- NOTE | 2016-09-01 19:20 | PDOC PROGRESS REPORT ---
Subjective Progress Note for:: 09/01/16 Subjective:: No reported fever or chills. No chest pain or difficulty with breathing. No nausea, vomiting, or abdominal pain. There is still concern about aspiration with feeding. Physical Exam Vital Signs: Temp Pulse Resp BP Pulse Ox 98.5 F 77 18 147/67 H 96 09/01/16 07:50 09/01/16 14:00 09/01/16 07:50 09/01/16 07:50 09/01/16 07:50 Intake & Output 08/31/16 09/01/16 09/02/16 06:59 06:59 06:59 Intake Total 2002 1860 1100 Output Total 1860 1100 Balance 1553 0 0 Physical Exam: General appearance: PRESENT: no acute distress, cooperative Head exam: PRESENT: atraumatic, normocephalic Eye exam: PRESENT: conjunctiva pink, EOMI, PERRLA. ABSENT: scleral icterus Mouth exam: PRESENT: moist. ABSENT: excessive saliva and secretion collection Respiratory exam: PRESENT: clear to auscultation prudencio, decreased breath sounds - at lung bases. Cardiovascular exam: PRESENT: RRR. ABSENT: diastolic murmur, rubs, systolic murmur GI/Abdominal exam: PRESENT: normal bowel sounds, soft. ABSENT: distended, guarding, mass, organomegaly, rebound, tenderness Extremities exam: ABSENT: pedal edema Neurological exam: PRESENT: altered - due to base line dementia but appropriate in simple responses Psychiatric exam: PRESENT: appropriate affect Skin exam: PRESENT: dry, warm, other - left heel pressure ulcer. Results Laboratory Results: 09/01/16 04:17 09/01/16 04:17 09/01/16 09/01/16 04:17 04:17 WBC 7.7 RBC 3.31 L Hgb 9.6 L Hct 30.3 L MCV 91 MCH 28.9 MCHC 31.6 L RDW 13.7 Plt Count 215 Seg Neutrophils % 67.1 Lymphocytes % 21.8 Monocytes % 7.1 Eosinophils % 3.4 Basophils % 0.6 Absolute Neutrophils 5.1 Absolute Lymphocytes 1.7 Absolute Monocytes 0.5 Absolute Eosinophils 0.3 Absolute Basophils 0.0 Sodium 140.6 Potassium 4.5 Chloride 108 H Carbon Dioxide 26 Anion Gap 7 BUN 7 Creatinine 0.78 Est GFR ( Amer) > 60 Est GFR (Non-Af Amer) > 60 Glucose 99 Calcium 8.9 Total Bilirubin 0.3 AST 51 ALT 38 Alkaline Phosphatase 94 Total Protein 6.6 Albumin 2.6 L 08/27/16 18:40 Blood Blood Culture - Final NO GROWTH IN 5 DAYS 08/27/16 18:15 Blood Blood Culture - Final NO GROWTH IN 5 DAYS Impressions: Modified Barium Swallow 08/29/16 00:00 IMPRESSION: 1. TRACHEAL ASPIRATION OF THIN LIQUIDS AND POST SWALLOW RESIDUALS FOLLOWING THIN LIQUIDS. 2. LARYNGEAL PENETRATION WITH NECTAR AND POST SWALLOW RESIDUALS OF MULTIPLE CONSISTENCIES. 3.PLEASE SEE SPEECH PATHOLOGIST REPORT FOR OTHER FINDINGS AND RECOMMENDATIONS. Chest X-Ray 08/31/16 08:00 IMPRESSION: Left lower lobe pneumonia and left upper lobe or lingular pneumonia. Assessment & Plan - Diagnosis (1) Acute renal failure Qualifiers: Acute renal failure type: unspecified Qualified Code(s): N17.9 - Acute kidney failure, unspecified Is this a current diagnosis for this admission?: Yes (2) Dehydration Is this a current diagnosis for this admission?: Yes (3) Hypernatremia Is this a current diagnosis for this admission?: Yes (4) UTI (urinary tract infection) Qualifiers: Urinary tract infection type: acute cystitis Hematuria presence: without hematuria Qualified Code(s): N30.00 - Acute cystitis without hematuria Is this a current diagnosis for this admission?: Yes (5) HTN (hypertension) Qualifiers: Hypertension type: essential hypertension Qualified Code(s): I10 - Essential (primary) hypertension Is this a current diagnosis for this admission?: Yes (6) HLD (hyperlipidemia) Qualifiers: Hyperlipidemia type: pure hypercholesterolemia Qualified Code(s): E78.00 - Pure hypercholesterolemia, unspecified; E78.0 - Pure hypercholesterolemia Is this a current diagnosis for this admission?: Yes (7) CAD (coronary artery disease) Qualifiers: Coronary Disease-Associated Artery/Lesion type: [place] artery Associated angina: without angina Is this a current diagnosis for this admission?: Yes (8) Old MA (myocardial infarction) Is this a current diagnosis for this admission?: Yes (9) Dementia, multi-infarct Qualifiers: Dementia behavioral disturbance: without behavioral disturbance Qualified Code(s): F01.50 - Vascular dementia without behavioral disturbance Is this a current diagnosis for this admission?: Yes (10) Excessive oral secretions Is this a current diagnosis for this admission?: No (11) Adult failure to thrive syndrome Is this a current diagnosis for this admission?: Yes (12) Aspiration pneumonia Qualifiers: Aspiration pneumonia type: due to regurgitated food Laterality: unspecified laterality Is this a current diagnosis for this admission?: Yes - Time Time Spent with patient: 25-34 minutes Medications reviewed and adjusted accordingly: Yes Anticipated discharge: Home with Homehealth Within: within 24 hours - Inpatient Certification Medical Necessity: Need Close Monitoring Due to Risk of Patient Decompensation, Need For IV Fluids, Need For Continuous Telemetry Monitoring, Need for IV Antibiotics, Risk of Complication if Not Cared For in Hospital 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 D/C Dominguez cath in Am. if patient remain afebrile and voiding satisfactorily consider d/c home tomorrow. I went through and complete MOST form with son at bedside today. Patient remain DNR and I completed NC form for DNR with him as well.
[2016-09-01] MEDS: TRAZODONE HCL 50 MG TABLET PO SCH (22:30)
[2016-09-02] MEDS: LANSOPRAZOLE 15 MG TAB.RAP.DR PO SCH (12:51)
[2016-09-02] MEDS: SENNOSIDES/DOCUSATE 8.6-50 MG 1 EACH TABLET PO SCH (12:52)
[2016-09-02] MEDS: METOPROLOL SUCCINATE 25 MG TAB.SR.24H PO SCH (12:53)
[2016-09-02] MEDS: LEVOTHYROXINE SODIUM 0.075 MG TABLET PO SCH (12:53)
[2016-09-02] MEDS: MULTIVITS W-MIN/IRON SOLN 60 ML PO SCH (12:57)
[2016-09-02] MEDS: COLLAGENASE CLOSTRIDIUM HIST. OINT 30 GM TOP SCH (13:08)
[2016-09-02] MEDS: FINASTERIDE 5 MG TABLET PO SCH (13:09)
[2016-09-02] MEDS: ENOXAPARIN SODIUM INJ 30 MG/0.3 ML DISP.SYRIN SUBCUT SCH (14:27)
--- NOTE | 2016-09-02 15:22 | PDOC DISCHARGE SUMMARY ---
General - Admit/Disc Date/PCP Admission Date/Primary Care Provider: 08/20/16 19:35 FRANCISCO BYNUM MD Discharge Date: 09/02/16 - Discharge Diagnosis (1) Acute renal failure Is this a current diagnosis for this admission?: Yes (2) Dehydration Is this a current diagnosis for this admission?: Yes (3) Hypernatremia Is this a current diagnosis for this admission?: Yes (4) UTI (urinary tract infection) Is this a current diagnosis for this admission?: Yes (5) HTN (hypertension) Is this a current diagnosis for this admission?: Yes (6) HLD (hyperlipidemia) Is this a current diagnosis for this admission?: Yes (7) CAD (coronary artery disease) Is this a current diagnosis for this admission?: Yes (8) Old IA (myocardial infarction) Is this a current diagnosis for this admission?: Yes (9) Dementia, multi-infarct Is this a current diagnosis for this admission?: Yes (10) Excessive oral secretions Is this a current diagnosis for this admission?: No (11) Adult failure to thrive syndrome Is this a current diagnosis for this admission?: Yes (12) Aspiration pneumonia Is this a current diagnosis for this admission?: Yes - Additional Information Resuscitation Status: Do Not Resuscitate - I had extensive discussion with son and daughter at bedside during my evaluation. The family at this time decided to make patient a DNR. This status will be maintained upon discharge from the hospital. Discharge Diet: As Tolerated - puree honey thickened liquid Discharge Activity: Activity As Tolerated Home Medications: Acetaminophen [Tylenol Extra Strength 500 mg Tablet] 1,000 mg PO Q4HP PRN Atorvastatin Calcium [Lipitor 80 mg Tablet] 80 mg PO QHS 08/20/16 Collagenase Clostridium Hist. [Santyl Ointment 30 gm] 1 applic TOP DAILY Dipyridamole [Persantine 25 mg Tablet] 75 mg PO BID 08/20/16 Erythromycin Base [Erythromycin] 1 inch OU DAILYP PRN 08/20/16 Finasteride [Proscar 5 mg Tablet] 5 mg PO DAILY 08/20/16 Levothyroxine Sodium [Synthroid] 75 mcg PO QAM 08/20/16 Metoprolol Succinate [Toprol Xl 25 mg Tab.sr] 25 mg PO QAM 08/20/16 Nitroglycerin [Nitrostat] 0.4 mg PO Q5M 08/20/16 Nut.tx.gluc.intoler,Lac-Fr,Soy [Glucerna] 8 oz PO TID 08/20/16 Omeprazole 20 mg PO QAM 08/20/16 Sennosides [Senna] 8.6 mg PO QAM 08/20/16 Starch [Thick-It] 1 packet PO MEALS 08/20/16 Tamsulosin HCl [Flomax 0.4 mg Cap.sr] 0.4 mg PO QPM 08/20/16 Trazodone HCl [Desyrel 50 mg Tablet] 25 mg PO QHS 08/20/16 Whey Protein Isolate [Beneprotein] 1 packet PO TID 08/20/16 Aspirin [Ecotrin 81 mg EC Tablet] 81 mg PO DAILY #30 tabec 09/02/16 Atropine Sulfate [Atropine 1% Oph Soln 5 ml] 1 drop SL Q8HP PRN #1 bottle Multivits W-Min/Ferrous Gluc [Certavite Multivit/Minerals/Iron Soln] 15 ml PO DAILY #450 ml 09/02/16 History of Present Illness History of Present Illness: NYLA POLLOCK is a 86 year old male known to my practice who as brought to the ED by family due to worsening difficulty with swallowing. Son reported that patient have been vomiting food given to him almost immediately upon swallowing. He ws seem at the ED recently and prescribed Magic Mouth wash due to whitish lesion seen in his mouth. Son reported difficulty with administration of the medicine since procured. Patient has history of recurrent stroke with dysphasia. Son denied any significant aspiration, fever or chills. He has been on honey thicken fluid at home as precautions for aspiration following his stroke. 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 Hospital Course Hospital Course: Patient did respond to IV re-hydration with normal saline. His renal indices eventually return and stay in normal range while on admission. He demonstrated significant aspiration risk and was evaluated by speech pathologist twice during this hospitalization. He eventually developed aspiration pneumonia that was treated wi5th IV Cefepime adequately. Of note there was concern for oral thrush and possible yeast upper respiratory tract infection necessitating addition of Diflucan to his management. His blood culture were no growth x 5 days. Urine culture did grew Misa species. I had extensive discussion with children, son and daughter at bedside several times and patient status was eventually made DNR with completion of NC DNR and MOST documentation with son on 09/01/2016. Copy on his hospital record chart. He will be discharged home today with follow up appointment as instructed upon discharge. Physical Exam Vital Signs: Temp Pulse Resp BP Pulse Ox 98.9 F 99 16 137/63 H 99 09/02/16 09:38 09/02/16 09:38 09/02/16 09:38 09/02/16 09:38 09/02/16 09:38 Intake & Output 09/01/16 09/02/16 09/03/16 06:59 06:59 06:59 Intake Total 1860 1750 Output Total 18595 Balance 0 -325 Weight 58.5 kg Physical Exam: General appearance: PRESENT: no acute distress, cooperative Head exam: PRESENT: atraumatic, normocephalic Eye exam: PRESENT: conjunctiva pink, EOMI, PERRLA. ABSENT: scleral icterus Mouth exam: PRESENT: moist. ABSENT: excessive saliva and secretion collection Respiratory exam: PRESENT: clear to auscultation prudencio, decreased breath sounds - at lung bases. Cardiovascular exam: PRESENT: RRR. ABSENT: diastolic murmur, rubs, systolic murmur GI/Abdominal exam: PRESENT: normal bowel sounds, soft. ABSENT: distended, guarding, mass, organomegaly, rebound, tenderness Extremities exam: ABSENT: pedal edema Neurological exam: PRESENT: altered - due to base line dementia but appropriate in simple responses Psychiatric exam: PRESENT: appropriate affect Skin exam: PRESENT: dry, warm, other - left heel pressure ulcer. Results Laboratory Results: 09/01/16 04:17 09/01/16 04:17 08/27/16 18:40 Blood Blood Culture - Final NO GROWTH IN 5 DAYS 08/27/16 18:15 Blood Blood Culture - Final NO GROWTH IN 5 DAYS Impressions: Modified Barium Swallow 08/29/16 00:00 IMPRESSION: 1. TRACHEAL ASPIRATION OF THIN LIQUIDS AND POST SWALLOW RESIDUALS FOLLOWING THIN LIQUIDS. 2. LARYNGEAL PENETRATION WITH NECTAR AND POST SWALLOW RESIDUALS OF MULTIPLE CONSISTENCIES. 3.PLEASE SEE SPEECH PATHOLOGIST REPORT FOR OTHER FINDINGS AND RECOMMENDATIONS. Chest X-Ray 08/31/16 08:00 IMPRESSION: Left lower lobe pneumonia and left upper lobe or lingular pneumonia. Qualifiers PATEINT BEING DISCHARGED WITH ANY OF THE FOLLOWING DIAGNOSIS?: No Plan Discharge Plan: Discharge home today and follow up in office as instructed upon discharge. Overall prognosis remain poor due to his advanced age and comorbidities. Patient will remain on DNR and MOST status. Time Spent: Greater than 30 Minutes
[2016-09-02] MEDS: TAMSULOSIN HCL 0.4 MG CAP.SR.24H PO SCH (18:27)
[2016-09-02 18:52] VITALS: BP 141/57
== END 2016-09-02 21:52 | disposition home health service (06) | DRG 682 ==
LOC: ER 08:14 → UNDOADMIN 10:28 → EH 10:28 → 4N 13:17 → EH 19:35
PROVIDERS: ADMIT Internal Medicine Geriatric Medicine; ATTEND Internal Medicine Geriatric Medicine
DX: N17.9 Acute kidney failure, unspecified (principal); J69.0 Pneumonitis due to inhalation of food and vomit; E87.0 Hyperosmolality and hypernatremia; N30.00 Acute cystitis without hematuria; B37.0 Candidal stomatitis; E86.0 Dehydration; I10 Essential (primary) hypertension; E11.9 Type 2 diabetes mellitus without complications; E78.00 Pure hypercholesterolemia, unspecified; E78.5 Hyperlipidemia, unspecified; I25.10 Atherosclerotic heart disease of native coronary artery without angina pectoris; F01.50 Vascular dementia, unspecified severity, without behavioral disturbance, psychotic disturbance, mood disturbance, and anxiety; I25.2 Old myocardial infarction; R62.7 Adult failure to thrive; Z66 Do not resuscitate; Z79.899 Other long term (current) drug therapy; Z79.82 Long term (current) use of aspirin; Z95.1 Presence of aortocoronary bypass graft; Z88.8 Allergy status to other drugs, medicaments and biological substances
CPT/HCPCS: 36415; 51701; 71010; 74230; 80048; 80053; 81001; 82803; 82962; 83605; 83735; 85025; 85610; 85730; 87040; 87086; 93005; 93010; 99291; G8996-GN; G8997-GN; G8998-GN; J0692; J0696; J1450; J1650; J2270; J3480; J3490; J7030

== ENCOUNTER 2016-10-03 19:59 | Inpatient (IN) | payer MEDICARE ==
[2016-10-03] MEDS ORDERED: PIPERACILLIN/TAZOBACTAM 3.375 GM VIAL IV ONE (20:10)
[2016-10-03] MEDS ORDERED: VANCOMYCIN HCL INJ 1000 MG VIAL IV ONE (20:10)
[2016-10-03] MEDS ORDERED: NORMAL SALINE 1000 ML 1,000 ML IV PRN (20:10)
--- NOTE | 2016-10-03 20:27 | ER Document Report ---
ED Respiratory Problem - General Chief Complaint: Shortness Of Breath Stated Complaint: WEAKNESS Time Seen by Provider: 10/03/16 20:09 Notes: Patient is an 86-year-old male, past medical history frequent bouts of aspiration, A. fib, prior CVA with left-sided deficits, dementia, presents from home by EMS with increased shortness of breath, increased aspiration and coughing and low blood pressure. According to his son, who is at bedside, his BP was 70's/30's at home tachycardic. Patient's been confirmed that he is DNR and DNI with the paperwork at bedside. His paperwork will allow IV fluids, antibiotics and BiPAP. His primary care physician is Dr. Galan and he was admitted a few weeks ago for a pneumonia that responded well to cefepime. Patient is unable to provide any additional history. TRAVEL OUTSIDE OF THE [place] IN LAST 30 DAYS: No - Related Data Allergies/Adverse Reactions: captopril [Captopril] Allergy (Intermediate, Verified 08/20/16 14:51) RASH Chloroxine [From Capitrol] Allergy (Mild, Verified 08/20/16 14:51) Past Medical History - General Information source: Relative - Social History Smoking Status: Unknown if Ever Smoked Family History: Reviewed & Not Pertinent - Past Medical History Cardiac Medical History: Reports: Hx Heart Attack, Hx Hypercholesterolemia, Hx Hypertension Endocrine Medical History: Reports: Hx Diabetes Mellitus Type 2 Renal/ Medical History: Denies: Hx Peritoneal Dialysis Past Surgical History: Reports: Hx Cardiac Catheterization, Hx Open Heart Surgery, Hx Tonsillectomy - Immunizations Hx Diphtheria, Pertussis, Tetanus Vaccination: Yes Review of Systems - Review of Systems -: Yes ROS unobtainable due to patient's medical condition Physical Exam - Vital signs Vitals: Resp Pulse Ox 32 H 81 L 10/03/16 20:11 10/03/16 20:11 - Notes Notes: PHYSICAL EXAMINATION: GENERAL: Ill-appearing. Cachectic. HEAD: Atraumatic, normocephalic. EYES: Pupils equal round and reactive to light, extraocular movements intact, sclera anicteric, conjunctiva are normal. ENT: nares patent, oropharynx clear without exudates. Dry mucous membranes. NECK: Normal range of motion, supple without lymphadenopathy LUNGS: Tachypnea, diffuse coarse breath sounds HEART: Tachycardic with regular rhythm ABDOMEN: Soft, nontender, normoactive bowel sounds. No guarding, no rebound. No masses appreciated. EXTREMITIES: Normal range of motion, no pitting or edema. No cyanosis. NEUROLOGICAL: Somnolent, no response to painful stimulation, chronic left-sided weakness SKIN: Warm, Dry, normal turgor, no rashes or lesions noted. Course - Re-evaluation Re-evalutation: 10/03/16 20:26 Pt seen immediately on arrival to the emergency room. He is tachypneic with coarse breath sounds and satting 84% on a nonrebreather. Son at bedside with paperwork and confirms that patient is DNR and DNI. He will allow IV fluids and antibiotics and begin BiPAP. Spoke to son about how sick his father is and he would like to continue with the fluids and antibiotics. 10/03/16 21:27 Pt has evidence of a UTI with severe sepsis, including fever, tachycardia, tachypnea and elevated lactate. He was provided 30 cc/kg IV fluid and started on broad-spectrum antibiotics. His chest x-ray does not show evidence of a pneumonia, but he has coarse breath sounds and is hypoxic to 82% on a nonrebreather mask, which is most likely from aspiration pneumonia. Patient is satting 96% on BiPAP and his tachypnea is improving. His labs are also remarkable for a sodium of 170 and acute kidney injury. Will switch patient to D5 half-normal saline 10/03/16 22:[address] Galan and he is requesting admission as Inpatient to Telemetry. Blood pressure is remaining 105/69 and his tachycardia is improving. - Vital Signs Vital signs: Temp Pulse Resp BP Pulse Ox 101.8 F H 130 H 31 H 150/100 H 96 10/03/16 20:30 10/03/16 20:30 10/03/16 21:16 10/03/16 21:16 10/03/16 21:16 - Laboratory Result Diagrams: 10/03/16 20:16 10/03/16 20:16 Laboratory results interpreted by me: 10/03/16 10/03/16 10/03/16 20:16 20:16 20:16 WBC 11.0 H Hgb 13.2 L MCHC 30.8 L RDW 17.0 H Seg Neutrophils % 90.0 H Lymphocytes % 6.2 L Absolute Neutrophils 9.9 H Sodium 170.3 H* Chloride 130 H BUN 93 H Creatinine 2.58 H Est GFR ( Amer) 29 L Est GFR (Non-Af Amer) 24 L Glucose 174 H Lactic Acid 4.9 H Calcium 11.5 H Total Protein 8.8 H Urine Protein Ur Leukocyte Esterase Urine Ascorbic Acid 10/03/16 20:38 WBC Hgb MCHC RDW Seg Neutrophils % Lymphocytes % Absolute Neutrophils Sodium Chloride BUN Creatinine Est GFR ( Amer) Est GFR (Non-Af Amer) Glucose Lactic Acid Calcium Total Protein Urine Protein >=500 H Ur Leukocyte Esterase LARGE H Urine Ascorbic Acid 20 H - Diagnostic Test Radiology reviewed: Image reviewed, Reports reviewed Radiology results interpreted by me: CXR: NAD - EKG Interpretation by Me EKG shows normal: Sinus rhythm, [place], Intervals, QRS Complexes, ST-T Waves Rate: Tachycardia Critical Care Note - Critical Care Note Total time excluding time spent on procedures (mins): 45 Discharge - Discharge Clinical Impression: Severe sepsis, Hypoxia, Hypernatremia, Acute kidney injury UTI (urinary tract infection) Qualifiers: Urinary tract infection type: acute cystitis Hematuria presence: without hematuria Qualified Code(s): N30.00 - Acute cystitis without hematuria Condition: Serious Disposition: ADMITTED INPATIENT Admitting Provider: [facility] Admitted: Telemetry Referrals: MELISSA GALAN MD [Primary Care Provider] - Follow up as needed
[2016-10-03 20:32] LABS: ABSOLUTE BASOPHILS # (AUTO) 0.1 10^3/uL (0.0-0.2); ABSOLUTE LYMPHOCYTES (AUTO) 0.7 10^3/uL (0.5-4.7); ABSOLUTE MONOCYTES (AUTO) 0.3 10^3/uL (0.1-1.4); ABSOLUTE NEUT (AUTO) 9.9 10^3/uL (1.7-8.2); BASOPHILS % (AUTO) 0.6 % (0-2); EOSINOPHILS % (AUTO) 0.1 % (0-6); HEMATOCRIT 42.7 % (37.9-51.0); HEMOGLOBIN 13.2 g/dL (13.5-17.0); HGB HCT DIFFERENCE -3.1; LYMPHOCYTES % (AUTO) 6.2 % (13-45); MEAN CORPUSCULAR HEMOGLOBIN 28.4 pg (27.0-33.4); MEAN CORPUSCULAR HGB CONC 30.8 g/dL (32.0-36.0); MEAN CORPUSCULAR VOLUME 92 fl (80-97); MONOCYTES % (AUTO) 3.1 % (3-13); RED BLOOD COUNT 4.65 10^6/uL (4.35-5.55)
[2016-10-03 20:35] LABS: VENOUS BLOOD BASE EXCESS -2.6 mmol/L; VENOUS BLOOD PH 7.35 (7.30-7.42)
[2016-10-03 20:36] LABS: PROTHROMBIN TIME 15.4 SEC (11.4-15.4)
[2016-10-03 20:49] LABS: ALANINE AMINOTRANSFERASE 27 U/L (21-72); ALBUMIN 3.7 g/dL (3.5-5.0); ALKALINE PHOSPHATASE 122 U/L (38-126); ANION GAP 18 (5-19); ASPARTATE AMINO TRANSFERASE 41 U/L (17-59); BILIRUBIN,DIRECT 0.4 mg/dL (0.0-0.4); BILIRUBIN,TOTAL 0.6 mg/dL (0.2-1.3); BLOOD UREA NITROGEN 93 mg/dL (7-20); CALCIUM 11.5 mg/dL (8.4-10.2); CARBON DIOXIDE 22 mmol/L (22-30); CHLORIDE 130 mmol/L (98-107); CREATININE RESULT 2.58 mg/dL (0.52-1.25); GLUCOSE 174 mg/dL (75-110); POTASSIUM 4.8 mmol/L (3.6-5.0); TOTAL PROTEIN 8.8 g/dL (6.3-8.2)
--- NOTE | 2016-10-03 20:55 | RADIOLOGY REPORT (SQ) ---
EXAM DESCRIPTION: CHEST SINGLE VIEW COMPLETED DATE/TIME: 10/03/2016 8:45 pm REASON FOR STUDY: fever COMPARISON: August 2016 EXAM PARAMETERS: NUMBER OF VIEWS: One view. TECHNIQUE: Single frontal radiographic view of the chest acquired. RADIATION DOSE: NA LIMITATIONS: None. FINDINGS: LUNGS AND PLEURA: No opacities, masses or pneumothorax. No pleural effusion. MEDIASTINUM AND HILAR STRUCTURES: No masses. Contour normal. HEART AND VASCULAR STRUCTURES: Heart normal in size. Normal vasculature. BONES: No acute findings. HARDWARE: Patient is status post median sternotomy. OTHER: No other significant finding. IMPRESSION: NO ACUTE RADIOGRAPHIC FINDING IN THE CHEST. TECHNICAL DOCUMENTATION: JOB ID: [id number]
[2016-10-03 20:58] LABS: SODIUM 170.3 mmol/L (137-145)
[2016-10-03 21:12] LABS: APPEARANCE,URINE CLOUDY; BILIRUBIN,URINE NEGATIVE (NEGATIVE); GLUCOSE, URINE NEGATIVE (NEGATIVE); KETONES,URINE NEGATIVE (NEGATIVE); LEUKOCYTE ESTERASE,URINE LARGE (NEGATIVE); NITRITE,URINE NEGATIVE (NEGATIVE); PROTEIN,URINE >=500 mg/dL (NEGATIVE); URINE SPECIFIC GRAVITY 1.017; UROBILINOGEN,URINE NEGATIVE mg/dL (<2.0)
[2016-10-03] MEDS ORDERED: ACETAMINOPHEN 325 MG SUPP.RECT PR ONE (21:30)
[2016-10-04] MEDS ORDERED: DEXTROSE 5%-1/2 NORMAL SALINE 1,000 ML IV ONE (00:30)
[2016-10-04] MEDS ORDERED: GLUCAGON,HUMAN RECOMB 1 MG INJ SUBCUT PRN (02:02)
[2016-10-04] MEDS ORDERED: DEXTROSE 40% GEL 15 GM TUBE PO PRN ×2 (02:02)
[2016-10-04] MEDS ORDERED: DEXTROSE 50%-WATER 25 GM/50 ML DISP.SYRIN IV PRN ×2 (02:02)
[2016-10-04] MEDS ORDERED: ACETAMINOPHEN 650 MG SUPP.RECT PR PRN (02:15)
[2016-10-04] MEDS ORDERED: DEXTROSE 5%-WATER 1000 ML 1,000 ML IV PRN (02:15)
[2016-10-04 04:44] LABS: ALANINE AMINOTRANSFERASE 31 U/L (21-72); ALBUMIN 2.7 g/dL (3.5-5.0); ALKALINE PHOSPHATASE 84 U/L (38-126); ANION GAP 14 (5-19); ASPARTATE AMINO TRANSFERASE 37 U/L (17-59); BILIRUBIN,DIRECT 0.4 mg/dL (0.0-0.4); BILIRUBIN,TOTAL 0.6 mg/dL (0.2-1.3); BLOOD UREA NITROGEN 86 mg/dL (7-20); CALCIUM 9.4 mg/dL (8.4-10.2); CARBON DIOXIDE 19 mmol/L (22-30); CHLORIDE 127 mmol/L (98-107); CREATININE RESULT 2.14 mg/dL (0.52-1.25); GLUCOSE 329 mg/dL (75-110); POTASSIUM 4.2 mmol/L (3.6-5.0); SODIUM 160.3 mmol/L (137-145); TOTAL PROTEIN 6.7 g/dL (6.3-8.2)
[2016-10-04] MEDS ORDERED: PIPERACILLIN/TAZOBACTAM 3.375 GM VIAL IV PRN (05:00)
[2016-10-04] MEDS ORDERED: FAMOTIDINE INJ/PF 20 MG/2 ML SDV IV ONE (06:00)
[2016-10-04] MEDS ORDERED: PIPERACILLIN SODIUM/TAZOBACTAM 3.375 GM in NORMAL SALINE 100 ML IV ONE (06:00)
[2016-10-04] MEDS ORDERED: PIPERACILLIN/TAZOBACTAM 3.375 GM VIAL IV ONE (06:13)
[2016-10-04 06:47] LABS: ABSOLUTE LYMPHOCYTES (AUTO) 1.1 10^3/uL (0.5-4.7); ABSOLUTE MONOCYTES (AUTO) 0.3 10^3/uL (0.1-1.4); ABSOLUTE NEUT (AUTO) 5.9 10^3/uL (1.7-8.2); BASOPHILS % (AUTO) 0.1 % (0-2); EOSINOPHILS % (AUTO) 0.2 % (0-6); HEMATOCRIT 32.7 % (37.9-51.0); HGB HCT DIFFERENCE -1.5; LYMPHOCYTES % (AUTO) 14.6 % (13-45); MEAN CORPUSCULAR HGB CONC 31.9 g/dL (32.0-36.0); MEAN CORPUSCULAR VOLUME 91 fl (80-97); MONOCYTES % (AUTO) 4.2 % (3-13); SEGMENTED NEUTROPHILS % (AUTO) 80.9 % (42-78); WHITE BLOOD COUNT 7.3 10^3/uL (4.0-10.5)
[2016-10-04 07:00] LABS: HEMOGLOBIN 10.4 g/dL (13.5-17.0)
--- NOTE | 2016-10-04 07:53 | EKG REPORT ---
SEVERITY:- ABNORMAL ECG - SINUS TACHYCARDIA PROBABLE LVH WITH SECONDARY REPOL ABNRM INFERIOR INFARCT, AGE INDETERMINATE : Confirmed by: Herve Pepper MD 04-Oct-2016 07:51:51
[2016-10-04] MEDS: PIPERACILLIN SODIUM/TAZOBACTAM 2.25 GM in NORMAL SALINE 50 ML IV SCH ×2 (09:37→17:44)
[2016-10-04] MEDS ORDERED: ONDANSETRON HCL INJ/PF 4 MG/2 ML SDV ONE (11:58)
--- NOTE | 2016-10-04 19:07 | PDOC H&P ---
History of Present Illness Admission Date/PCP: 10/03/16 22:13 Patient complains of: Difficulty with breathing, Generalized weakness, Poor oral intake History of Present Illness: NYLA POLLOCK is a 86 year old male known to my practice who presented to the ED by medic following activation by son. Son and daughter at bedside narrated that he has not been eating very well since his recent discharged from the hospital. There has been frequent episodes of aspiration with feeding attempts. Patient had low grade fever a day prior to presentation. Son reported worsening sacral and buttock pressure ulcers, associated low blood pressure, increase heart rate and difficulty with breathing prior to activating the EMS personnel. Upon arrival in the ED his initial evaluation revealed significant tachycardia, tachypnea, hypertension, abnormal urine and hypernatremic dehydration. In view of associated abnormal laboratory findings he was advised hospitalization. Patient has a DNR status documentation and MOST form that allowed for conservative management. He was initially managed with BiPAP support , IV fluid and IV antibiotic therapy. Past Medical History Cardiac Medical History: Reports: Myocardial Infarction, Hyperlipidema, Hypertension Endocrine Medical History: Reports: Diabetes Mellitus Type 2 Past Surgical History Past Surgical History: Reports: Cardiac Catheterization, Tonsillectomy Social History Smoking Status: Unknown if Ever Smoked Frequency of Alcohol Use: None Hx Recreational Drug Use: No Drugs: None Hx Prescription Drug Abuse: No - Advance Directive Resuscitation Status: Do Not Resuscitate Family History Family History: Reviewed & Not Pertinent Parental Family History Reviewed: Yes Children Family History Reviewed: Yes Sibling(s) Family History Reviewed.: Yes Medication/Allergy Home Medications: Acetaminophen [Tylenol Extra Strength 500 mg Tablet] 1,000 tab PO Q4HP PRN 10/04 Aspirin [Aspirin 81 mg Chewable Tablet] 162 mg PO BID 10/04/16 Atorvastatin Calcium [Lipitor 80 mg Tablet] 80 mg PO QHS 10/04/16 Atropine Sulfate [Atropine 1% Oph Soln 5 ml] 1 drop SL Q8HP PRN 10/04/16 Collagenase Clostridium Hist. [Santyl Ointment 30 gm] 1 applic TP DAILY Dipyridamole [Persantine 25 Mg Tablet] 75 mg PO BID 10/04/16 Erythromycin Base [Erythromycin Oph Oint 1 Gm Ud] 1 applic OU DAILYP PRN Finasteride [Proscar 5 mg Tablet] 5 mg PO DAILY 10/04/16 Furosemide [Lasix 20 mg Tablet] 20 mg PO QAM 10/04/16 Levothyroxine Sodium [Synthroid 0.075 mg Tablet] 0.075 mg PO DAILY 10/04/16 Metoprolol Succinate [Toprol Xl 25 mg Tab.sr] 25 mg PO DAILY 10/04/16 Multivits W-Min/Ferrous Gluc [Certavite Multivit/Minerals/Iron Soln] 15 ml PO DAILY 10/04/16 Nitroglycerin [Nitrostat] 0.4 mg SL Q5MP PRN 10/04/16 Omeprazole 20 mg PO QAM 10/04/16 Oxycodone HCl 5 mg PO Q4HP PRN 10/04/16 Whey Protein Isolate [Beneprotein] 1 packet PO TID 10/04/16 Allergies/Adverse Reactions: captopril [Captopril] Allergy (Intermediate, Verified 08/20/16 14:51) RASH Chloroxine [From Capitrol] Allergy (Mild, Verified 08/20/16 14:51) Review of Systems ROS unobtainable: Due to mental status Physical Exam Vital Signs: Temp Pulse Resp BP Pulse Ox 98.4 F 92 28 H 93/51 L 94 10/04/16 07:16 10/04/16 07:16 10/04/16 08:07 10/04/16 07:16 10/04/16 07:16 Intake & Output 10/03/16 10/04/16 10/05/16 06:59 06:59 06:59 Intake Total 350 Output Total 275 Balance 75 Weight 48.9 kg General appearance: PRESENT: disheveled, mild distress - on supplemetatal oxygen via venturi mask s/p episode of vomiting while on BiPAP earlier today. Head exam: PRESENT: atraumatic, normocephalic Eye exam: PRESENT: conjunctiva pink, EOMI, PERRLA. ABSENT: scleral icterus Mouth exam: PRESENT: dry mucosa Teeth exam: PRESENT: poor dentation Respiratory exam: PRESENT: crackles - scattered, decreased breath sounds Cardiovascular exam: PRESENT: RRR. ABSENT: diastolic murmur, rubs, systolic murmur GI/Abdominal exam: PRESENT: normal bowel sounds, soft. ABSENT: distended, guarding, mass, organolmegaly, rebound, tenderness Extremities exam: ABSENT: pedal edema Musculoskeletal exam: PRESENT: deformity - related to multiple joints involvement with arthritis Neurological exam: PRESENT: altered - with incoherent speech in response Skin exam: PRESENT: dry, warm, other - stage 2 sacral and unstagable necrotic left buttock ulcers Results Laboratory Results: 10/04/16 06:00 10/04/16 04:04 10/04/16 10/04/16 10/04/16 01:08 04:04 04:04 WBC Cancelled RBC Cancelled Hgb Cancelled Hct Cancelled MCV Cancelled MCH Cancelled MCHC Cancelled RDW Cancelled Plt Count Cancelled Seg Neutrophils % Cancelled Lymphocytes % Cancelled Monocytes % Cancelled Eosinophils % Cancelled Basophils % Cancelled Absolute Neutrophils Cancelled Absolute Lymphocytes Cancelled Absolute Monocytes Cancelled Absolute Eosinophils Cancelled Absolute Basophils Cancelled Sodium 160.3 H Potassium 4.2 Chloride 127 H Carbon Dioxide 19 L Anion Gap 14 BUN 86 H Creatinine 2.14 H Est GFR ( Amer) 35 L Est GFR (Non-Af Amer) 29 L Glucose 329 H Lactic Acid 2.8 H Calcium 9.4 Total Bilirubin 0.6 AST 37 ALT 31 Alkaline Phosphatase 84 Total Protein 6.7 Albumin 2.7 L 10/04/16 06:00 WBC 7.3 RBC 3.60 L Hgb 10.4 L D Hct 32.7 L MCV 91 MCH 29.0 MCHC 31.9 L RDW 17.0 H Plt Count 93 L Seg Neutrophils % 80.9 H Lymphocytes % 14.6 Monocytes % 4.2 Eosinophils % 0.2 Basophils % 0.1 Absolute Neutrophils 5.9 Absolute Lymphocytes 1.1 Absolute Monocytes 0.3 Absolute Eosinophils 0.0 Absolute Basophils 0.0 Sodium Potassium Chloride Carbon Dioxide Anion Gap BUN Creatinine Est GFR ( Amer) Est GFR (Non-Af Amer) Glucose Lactic Acid Calcium Total Bilirubin AST ALT Alkaline Phosphatase Total Protein Albumin Impressions: Chest X-Ray 10/03/16 20:03 IMPRESSION: NO ACUTE RADIOGRAPHIC FINDING IN THE CHEST. Assessment & Plan - Diagnosis (1) Septic shock Is this a current diagnosis for this admission?: YesPlan: See admitting attending physician orders. (2) Aspiration pneumonia Qualifiers: Aspiration pneumonia type: due to regurgitated food Laterality: unspecified laterality Is this a current diagnosis for this admission?: YesPlan: See admitting attending physician orders. (3) UTI (urinary tract infection) Qualifiers: Urinary tract infection type: acute cystitis Hematuria presence: without hematuria Qualified Code(s): N30.00 - Acute cystitis without hematuria Is this a current diagnosis for this admission?: YesPlan: See admitting attending physician orders. (4) Pressure ulcer of buttock, unstageable Qualifiers: Laterality: left Qualified Code(s): L89.320 - Pressure ulcer of left buttock, unstageable Is this a current diagnosis for this admission?: YesPlan: See admitting attending physician orders. (5) ADITI (acute kidney injury) Is this a current diagnosis for this admission?: YesPlan: See admitting attending physician orders. (6) Hypernatremia Is this a current diagnosis for this admission?: YesPlan: See admitting attending physician orders. (7) Adult failure to thrive syndrome Is this a current diagnosis for this admission?: YesPlan: See admitting attending physician orders. (8) Dementia, multi-infarct Qualifiers: Dementia behavioral disturbance: without behavioral disturbance Qualified Code(s): F01.50 - Vascular dementia without behavioral disturbance Is this a current diagnosis for this admission?: YesPlan: See admitting attending physician orders. (9) Dysphagia, oral phase Is this a current diagnosis for this admission?: YesPlan: See admitting attending physician orders. (10) HTN (hypertension) Qualifiers: Hypertension type: essential hypertension Qualified Code(s): I10 - Essential (primary) hypertension Is this a current diagnosis for this admission?: YesPlan: See admitting attending physician orders. (11) Old [place] (myocardial infarction) Is this a current diagnosis for this admission?: YesPlan: See admitting attending physician orders. - Time Time Spent: Greater than 70 Minutes - I had extensive discussion with son and daughter at bedside regarding care plan, expectation and associated poor prognosis. Family agreeable with DNR and MOST status. Medications reviewed and adjusted accordingly: Yes Anticipated discharge: Home with Homehealth Within: Other - Inpatient Certification Based on my medical assessment, after consideration of the patient's comorbidities, presenting symptoms, or acuity I expect that the services needed warrant INPATIENT care.: Yes I certify that my determination is in accordance with my understanding of Medicare's requirements for reasonable and necessary INPATIENT services [42 CFR 412.3e].: Yes Medical Necessity: Need Close Monitoring Due to Risk of Patient Decompensation, Need For IV Fluids, Need For Continuous Telemetry Monitoring, Need for Pain Control, Need for IV Antibiotics, Need for Surgery, Risk of Complication if Not Cared For in Hospital Post Hospital Care: D/C Pricing Specialist Documentation - Plan Summary Plan Summary: See admitting attending physician orders.
[2016-10-04] MEDS ORDERED: VANCOMYCIN HCL 0 MG in DEXTROSE 5%-WATER 250 ML IV NR (19:15)
[2016-10-04] MEDS: MORPHINE SULFATE 10 MG/ML INJ IV PRN (20:58)
--- NOTE | 2016-10-04 22:42 | OPERATIVE REPORT E ---
Operative Report NAME: NYLA POLLOCK : 1930 AGE: 86Y DATE OF SURGERY: 10/04/2016 ROOM: [facility] PREOPERATIVE DIAGNOSIS: Pressure ulcer along the left trochanteric area of the hip. POSTOPERATIVE DIAGNOSIS: Pressure ulcer along the left trochanteric area of the hip. OPERATION: Sharp debridement of necrotic tissue along the left trochanteric area of the left hip down to the muscle, almost to the bone, roughly measuring 4 x 3 cm. SURGEON: MICK HOLLIDAY M.D. ANESTHESIA: DESCRIPTION OF PROCEDURE: The patient was somewhat contracted and was able to visualize the left trochanteric ulcer. There was some necrotic tissue on the inside of the ulcer. With the use of #11 blade, sharp dissection and removal of necrotic tissue was performed. There is still a small amount of necrotic tissue close to the bone. The debridement was right on the subcutaneous and muscle areas. The patient will have wet-to-dry dressing along the left ulcer twice a day and will be reevaluated in 48 hours to see if needed further debridement. DICTATING PHYSICIAN: MICK HOLLIDAY M.D. [id number] PHY#: [id number] ID: [id number] JOB#: [id number] ACCT: [id number] cc:MICK HOLLIDAY M.D. >
[2016-10-04] MEDS: FAMOTIDINE INJ/PF 20 MG/2 ML SDV IV SCH (23:03)
[2016-10-04] MEDS: FOLIC ACID IV SCH ×4 (23:04)
[2016-10-04] MEDS: WATER IV SCH ×4 (23:04)
[2016-10-04] MEDS: [UNRECOGNIZED DRUG - OTHER] IV SCH ×4 (23:04)
[2016-10-04] MEDS: DEXTROSE 5% IV SCH ×4 (23:04)
[2016-10-04] MEDS: THIAMINE HCL IV SCH ×4 (23:04)
[2016-10-05] MEDS ORDERED: ATROPINE SULFATE 1% OPH SOLN 5 ML BOTTLE ONE (00:38)
[2016-10-05] MEDS: ATROPINE SULFATE 1% OPH SOLN 5 ML BOTTLE SL PRN (00:48)
[2016-10-05] MEDS: PIPERACILLIN SODIUM/TAZOBACTAM 2.25 GM in NORMAL SALINE 50 ML IV SCH ×3 (03:03→17:53)
[2016-10-05 07:49] LABS: HEMATOCRIT 31.2 % (37.9-51.0); HEMOGLOBIN 9.8 g/dL (13.5-17.0); HGB HCT DIFFERENCE -1.8; MEAN CORPUSCULAR HEMOGLOBIN 28.9 pg (27.0-33.4); MEAN CORPUSCULAR HGB CONC 31.4 g/dL (32.0-36.0); MEAN CORPUSCULAR VOLUME 92 fl (80-97); RED BLOOD COUNT 3.39 10^6/uL (4.35-5.55); RED CELL DISTRIBUTION WIDTH 16.9 % (11.5-14.0); WHITE BLOOD COUNT 8.2 10^3/uL (4.0-10.5)
[2016-10-05 07:58] LABS: ALANINE AMINOTRANSFERASE 39 U/L (21-72); ALBUMIN 2.5 g/dL (3.5-5.0); ALKALINE PHOSPHATASE 89 U/L (38-126); ANION GAP 14 (5-19); ASPARTATE AMINO TRANSFERASE 52 U/L (17-59); BILIRUBIN,DIRECT 0.5 mg/dL (0.0-0.4); BILIRUBIN,TOTAL 0.6 mg/dL (0.2-1.3); BLOOD UREA NITROGEN 96 mg/dL (7-20); CALCIUM 10.1 mg/dL (8.4-10.2); CARBON DIOXIDE 18 mmol/L (22-30); CHLORIDE 128 mmol/L (98-107); CREATININE RESULT 2.19 mg/dL (0.52-1.25); GLUCOSE 130 mg/dL (75-110); POTASSIUM 4.2 mmol/L (3.6-5.0); SODIUM 160.4 mmol/L (137-145); TOTAL PROTEIN 6.2 g/dL (6.3-8.2)
[2016-10-05 08:33] LABS: ANISOCYTOSIS 1+; BASOPHILS % (MANUAL) 0 % (0-2); EOSINOPHILS % (MANUAL) 0 % (0-6); HYPOCHROMASIA SLIGHT; LYMPHOCYTES % (MANUAL) 4 % (13-45); POLYCHROMASIA 1+; TOTAL CELLS COUNTED 100; TOXIC VACUOLATION PRESENT
[2016-10-05 08:34] LABS: BAND NEUTROPHILS % (MANUAL) 20 % (3-5)
[2016-10-05] MEDS: FAMOTIDINE INJ/PF 20 MG/2 ML SDV IV SCH ×2 (09:27→22:11)
[2016-10-05] MEDS: VANCOMYCIN HCL 500 MG in DEXTROSE 5%-WATER 100 ML IV SCH (09:27)
[2016-10-05] MEDS: COLLAGENASE CLOSTRIDIUM HIST. OINT 30 GM TP SCH (09:27)
[2016-10-05] MEDS ORDERED: THIAMINE HCL 100 MG, FOLIC ACID 1 MG in NORMAL SALINE 50 ML IV SCH (10:00)
[2016-10-05] MEDS ORDERED: ZINC SULF/CUSO4 P-HYD/MANG/CR INJ 1 ML SDV IV SCH (10:00)
[2016-10-05] MEDS: MORPHINE SULFATE 10 MG/ML INJ IV PRN ×2 (17:08→22:11)
[2016-10-05] MEDS ORDERED: DIGOXIN INJ 0.5 MG/2 ML AMPULE IV ONE (18:45)
--- NOTE | 2016-10-05 19:32 | PDOC PROGRESS REPORT ---
Subjective Progress Note for:: 10/05/16 Subjective:: Remain nonverbal. Continue on IV Cefepime and vancomycin coverage. Low grade fever earlier today. No recurrent vomiting. Developed atrial fibrillation rhythm earlier today. Managed with IV Digoxin due to associated low blood pressure. I had extensive discussion with son at bedside. Concern about hiccough and DVT prophylaxis. Physical Exam Vital Signs: Temp Pulse Resp BP Pulse Ox 98.2 F 94 20 98/36 L 96 10/05/16 15:29 10/05/16 15:29 10/05/16 15:29 10/05/16 15:29 10/05/16 15:29 Intake & Output 10/04/16 10/05/16 10/06/16 06:59 06:59 06:59 Intake Total 700 200 Output Total 800 525 Balance -100 -325 General appearance: PRESENT: mild distress - remain on Venturi mask supplemental oxygen Head exam: PRESENT: atraumatic, normocephalic Eye exam: PRESENT: PERRLA Mouth exam: PRESENT: dry mucosa Respiratory exam: PRESENT: decreased breath sounds - at lung bases Cardiovascular exam: PRESENT: irregular rhythm, tachycardia Vascular exam: ABSENT: pallor GI/Abdominal exam: PRESENT: normal bowel sounds, soft. ABSENT: distended, guarding, mass, organolmegaly, rebound, tenderness Neurological exam: PRESENT: altered - without mainingful any sensible communication Skin exam: PRESENT: dry, warm, other - s/p sacral pressure ulcer debridement Results Laboratory Results: 10/05/16 05:12 10/05/16 05:12 10/05/16 10/05/16 05:12 05:12 WBC 8.2 RBC 3.39 L Hgb 9.8 L Hct 31.2 L MCV 92 MCH 28.9 MCHC 31.4 L RDW 16.9 H Plt Count 89 L Seg Neutrophils % Not Reportable Lymphocytes % Not Reportable Monocytes % Not Reportable Eosinophils % Not Reportable Basophils % Not Reportable Absolute Neutrophils Not Reportable Absolute Lymphocytes Not Reportable Absolute Monocytes Not Reportable Absolute Eosinophils Not Reportable Absolute Basophils Not Reportable Sodium 160.4 H Potassium 4.2 Chloride 128 H Carbon Dioxide 18 L Anion Gap 14 BUN 96 H Creatinine 2.19 H Est GFR ( Amer) 35 L Est GFR (Non-Af Amer) 29 L Glucose 130 H Calcium 10.1 Total Bilirubin 0.6 AST 52 ALT 39 Alkaline Phosphatase 89 Total Protein 6.2 L Albumin 2.5 L Impressions: Chest X-Ray 10/03/16 20:03 IMPRESSION: NO ACUTE RADIOGRAPHIC FINDING IN THE CHEST. Assessment & Plan - Diagnosis (1) Septic shock Is this a current diagnosis for this admission?: Yes (2) Aspiration pneumonia Qualifiers: Aspiration pneumonia type: due to regurgitated food Laterality: unspecified laterality Is this a current diagnosis for this admission?: Yes (3) UTI (urinary tract infection) Qualifiers: Urinary tract infection type: acute cystitis Hematuria presence: without hematuria Qualified Code(s): N30.00 - Acute cystitis without hematuria Is this a current diagnosis for this admission?: Yes (4) Pressure ulcer of buttock, unstageable Qualifiers: Laterality: left Qualified Code(s): L89.320 - Pressure ulcer of left buttock, unstageable Is this a current diagnosis for this admission?: Yes (5) ADITI (acute kidney injury) Is this a current diagnosis for this admission?: Yes (6) Hypernatremia Is this a current diagnosis for this admission?: Yes (7) Adult failure to thrive syndrome Is this a current diagnosis for this admission?: Yes (8) Dementia, multi-infarct Qualifiers: Dementia behavioral disturbance: without behavioral disturbance Qualified Code(s): F01.50 - Vascular dementia without behavioral disturbance Is this a current diagnosis for this admission?: Yes (9) Dysphagia, oral phase Is this a current diagnosis for this admission?: Yes (10) HTN (hypertension) Qualifiers: Hypertension type: essential hypertension Qualified Code(s): I10 - Essential (primary) hypertension Is this a current diagnosis for this admission?: Yes (11) Old [place] (myocardial infarction) Is this a current diagnosis for this admission?: Yes - Time Time Spent with patient: 35 or more minutes Medications reviewed and adjusted accordingly: Yes Anticipated discharge: Home with Homehealth Within: Other - Inpatient Certification Based on my medical assessment, after consideration of the patient's comorbidities, presenting symptoms, or acuity I expect that the services needed warrant INPATIENT care.: Yes I certify that my determination is in accordance with my understanding of Medicare's requirements for reasonable and necessary INPATIENT services [42 CFR 412.3e].: Yes Medical Necessity: Need Close Monitoring Due to Risk of Patient Decompensation, Need For IV Fluids, Need For Continuous Telemetry Monitoring, Need for Pain Control, Need for IV Antibiotics, Risk of Complication if Not Cared For in Hospital Post Hospital Care: D/C Faculty Head Documentation - Plan Summary Plan Summary: Continue IV antibiotic coverage and IV fluid support. Consider repeat IV Digoxin if necessary for rate control. maintain on all other current medication management.
[2016-10-05] MEDS ORDERED: METOPROLOL TARTRATE PF/INJ 5 MG/5 ML SDV IV ONE (20:30)
[2016-10-05 21:19] LABS: CREATININE RESULT 2.09 mg/dL (0.52-1.25)
[2016-10-05 21:30] LABS: PROTHROMBIN TIME 17.7 SEC (11.4-15.4)
[2016-10-05 21:31] LABS: PARTIAL THROMBOPLASTIN TIME 41.3 SEC (23.5-35.8)
[2016-10-05] MEDS: DEXTROSE 5% IV SCH ×4 (22:11)
[2016-10-05] MEDS: FOLIC ACID IV SCH ×4 (22:11)
[2016-10-05] MEDS: THIAMINE HCL IV SCH ×4 (22:11)
[2016-10-05] MEDS: WATER IV SCH ×4 (22:11)
[2016-10-05] MEDS: [UNRECOGNIZED DRUG - OTHER] IV SCH ×4 (22:11)
[2016-10-05 23:48] LABS: ABSOLUTE MONOCYTES (AUTO) 0.2 10^3/uL (0.1-1.4); ABSOLUTE NEUT (AUTO) 8.5 10^3/uL (1.7-8.2); BASOPHILS % (AUTO) 0.1 % (0-2); EOSINOPHILS % (AUTO) 0.1 % (0-6); HEMATOCRIT 28.7 % (37.9-51.0); HGB HCT DIFFERENCE -1.7; LYMPHOCYTES % (AUTO) 9.8 % (13-45); MEAN CORPUSCULAR HEMOGLOBIN 28.4 pg (27.0-33.4); MEAN CORPUSCULAR HGB CONC 31.4 g/dL (32.0-36.0); MEAN CORPUSCULAR VOLUME 91 fl (80-97); MONOCYTES % (AUTO) 2.3 % (3-13); RED BLOOD COUNT 3.16 10^6/uL (4.35-5.55); RED CELL DISTRIBUTION WIDTH 16.8 % (11.5-14.0); SEGMENTED NEUTROPHILS % (AUTO) 87.7 % (42-78); WHITE BLOOD COUNT 9.7 10^3/uL (4.0-10.5)
[2016-10-06] MEDS: PIPERACILLIN SODIUM/TAZOBACTAM 2.25 GM in NORMAL SALINE 50 ML IV SCH ×3 (02:38→17:12)
[2016-10-06] MEDS: VANCOMYCIN HCL 500 MG in DEXTROSE 5%-WATER 100 ML IV SCH (08:45)
[2016-10-06] MEDS: DEXTROSE 5%-WATER 1000 ML 1,000 ML IV PRN (08:46)
[2016-10-06] MEDS ORDERED: ENOXAPARIN SODIUM INJ 30 MG/0.3 ML DISP.SYRIN SUBCUT SCH (10:00)
[2016-10-06] MEDS: FAMOTIDINE INJ/PF 20 MG/2 ML SDV IV SCH ×2 (10:40→21:29)
[2016-10-06] MEDS: COLLAGENASE CLOSTRIDIUM HIST. OINT 30 GM TP SCH (11:22)
[2016-10-06] MEDS: MORPHINE SULFATE 10 MG/ML INJ IV PRN ×2 (13:15→20:29)
--- NOTE | 2016-10-06 17:50 | Physician Advisory Note ---
Physician Advisor ProgressNote .: [facility] have [facility] medical [facility] for this patient. Physician Advisor Statement: Complex case! Please consider documenting, if you agree: 1. "Acute Hypoxemic Respiratory Failure" (Pt came in w/labored BS, grunting & w/periods of apnea, 84% sat on NRB mask O2, requiring Bipap (DNR/DNI) ...) 2. 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 "underweight with protein-calorie malnutrition [state mod, or severe] with BMI 17.4, ____[?wt loss, ?appetite loss, ]" [if possible, give specifics on intake, wt loss, loss of SQ fat & muscle mass, diminished hand cardiology specialist strength, & clinical importance such as (A) nutritional assessment ordered, (B) modified diet or supplements ordered, (C) additional labs ordered, (D) prolonged wound healing time, (E) delayed infxn clearance] Also, please specify: 4. most likely cause of septic shock: Aspiration Pneumonia? UTI? decub? - or scalp treatment specialist has to ask you later 5. most likely cause of ADITI: "Acute Tubular Necrosis due to septic shock" ? 6. most likely cause of the hyponatremia Support for dx septic shock: Pt w/fever 101.8, tachycardia 131, tachypnea of 32, lactate 4.9, BP as low as 70s/30s initially. Not given pressor support because pt MOST form only allowed abx, IVF. Pt came in w/P/F ratio <<238 (sat 81% on ? amount O2, & 77% on RA), BP as low as 70s/30s at home & 84/51 at hosptial for MAP of 62, thrombocytopenia of 93, GCS total of only 7, bicarb of 19 consistent with acute metabolic acidosis due to sepsis, and ADITI due to sepsis, & lactate 4.9. He therefore more than met both Sepsis-2 and Sepsis-3 criteria for dx severe sepsis. and met criteria for septic shock. Thanks! CK
--- NOTE | 2016-10-06 18:42 | PDOC PROGRESS REPORT ---
Subjective Progress Note for:: 10/06/16 Subjective:: Remain nonverbal. There is persistent loud tracheal breath sound suggestive of excessive secretion. No reported recurrent vomiting or fever. Remain NPO and on DNR status. Remain on IV Cefepime and Vancomycin coverage. monitor and storage bin tender rhythm remain in atrial fibrillation. I had extensive discussion with son at bedside, at present considering hospice if condition do not improve over next 4 days. Physical Exam Vital Signs: Temp Pulse Resp BP Pulse Ox 98.4 F 107 H 36 H 115/37 L 92 10/06/16 15:36 10/06/16 15:36 10/06/16 15:36 10/06/16 15:36 10/06/16 15:36 Intake & Output 10/05/16 10/06/16 10/07/16 06:59 06:59 06:59 Intake Total 700 1300 Output Total 800 1385 Balance -100 -85 Physical Exam: General appearance: PRESENT: mild distress - remain on Venturi mask supplemental oxygen Head exam: PRESENT: atraumatic, normocephalic Eye exam: PRESENT: PERRLA Mouth exam: PRESENT: dry mucosa Respiratory exam: PRESENT: decreased breath sounds - at lung bases Cardiovascular exam: PRESENT: irregular rhythm, tachycardia Vascular exam: ABSENT: pallor GI/Abdominal exam: PRESENT: normal bowel sounds, soft. ABSENT: distended, guarding, mass, organomegaly, rebound, tenderness Neurological exam: PRESENT: altered - lethargic. Skin exam: PRESENT: dry, warm, other - s/p sacral pressure ulcer debridement Results Laboratory Results: 10/05/16 23:12 10/05/16 20:50 10/05/16 10/05/16 10/05/16 20:50 20:50 22:10 WBC Cancelled Cancelled RBC Cancelled Cancelled Hgb Cancelled Cancelled Hct Cancelled Cancelled MCV Cancelled Cancelled MCH Cancelled Cancelled MCHC Cancelled Cancelled RDW Cancelled Cancelled Plt Count Cancelled Cancelled Seg Neutrophils % Cancelled Lymphocytes % Cancelled Monocytes % Cancelled Eosinophils % Cancelled Basophils % Cancelled Absolute Neutrophils Cancelled Absolute Lymphocytes Cancelled Absolute Monocytes Cancelled Absolute Eosinophils Cancelled Absolute Basophils Cancelled Creatinine 2.09 H Est GFR ( Amer) 36 L Est GFR (Non-Af Amer) 30 L 10/05/16 23:12 WBC 9.7 RBC 3.16 L Hgb 9.0 L Hct 28.7 L MCV 91 MCH 28.4 MCHC 31.4 L RDW 16.8 H Plt Count 87 L Seg Neutrophils % 87.7 H Lymphocytes % 9.8 L Monocytes % 2.3 L Eosinophils % 0.1 Basophils % 0.1 Absolute Neutrophils 8.5 H Absolute Lymphocytes 1.0 Absolute Monocytes 0.2 Absolute Eosinophils 0.0 Absolute Basophils 0.0 Creatinine Est GFR ( Amer) Est GFR (Non-Af Amer) Impressions: Chest X-Ray 10/03/16 20:03 IMPRESSION: NO ACUTE RADIOGRAPHIC FINDING IN THE CHEST. Assessment & Plan - Diagnosis (1) Septic shock Is this a current diagnosis for this admission?: Yes (2) Aspiration pneumonia Qualifiers: Aspiration pneumonia type: due to regurgitated food Laterality: unspecified laterality Is this a current diagnosis for this admission?: Yes (3) UTI (urinary tract infection) Qualifiers: Urinary tract infection type: acute cystitis Hematuria presence: without hematuria Qualified Code(s): N30.00 - Acute cystitis without hematuria Is this a current diagnosis for this admission?: Yes (4) Pressure ulcer of buttock, unstageable Qualifiers: Laterality: left Qualified Code(s): L89.320 - Pressure ulcer of left buttock, unstageable Is this a current diagnosis for this admission?: Yes (5) ADITI (acute kidney injury) Is this a current diagnosis for this admission?: Yes (6) Hypernatremia Is this a current diagnosis for this admission?: Yes (7) Adult failure to thrive syndrome Is this a current diagnosis for this admission?: Yes (8) Dementia, multi-infarct Qualifiers: Dementia behavioral disturbance: without behavioral disturbance Qualified Code(s): F01.50 - Vascular dementia without behavioral disturbance Is this a current diagnosis for this admission?: Yes (9) Dysphagia, oral phase Is this a current diagnosis for this admission?: Yes (10) HTN (hypertension) Qualifiers: Hypertension type: essential hypertension Qualified Code(s): I10 - Essential (primary) hypertension Is this a current diagnosis for this admission?: Yes (11) Old [place] (myocardial infarction) Is this a current diagnosis for this admission?: Yes - Time Time Spent with patient: 25-34 minutes Medications reviewed and adjusted accordingly: Yes Anticipated discharge: Hospice Within: Other - Inpatient Certification Based on my medical assessment, after consideration of the patient's comorbidities, presenting symptoms, or acuity I expect that the services needed warrant INPATIENT care.: Yes I certify that my determination is in accordance with my understanding of Medicare's requirements for reasonable and necessary INPATIENT services [42 CFR 412.3e].: Yes Medical Necessity: Need Close Monitoring Due to Risk of Patient Decompensation, Need For IV Fluids, Need For Continuous Telemetry Monitoring, Need for IV Antibiotics, Risk of Complication if Not Cared For in Hospital Post Hospital Care: D/C Access Analyst Documentation - Plan Summary Plan Summary: IV Cefepime and Vancomycin coverage pending blood culture findings in view of urine culture with Staph. aureus. Maintain on fluid support. Remain NPO. Continue further discussion with son and daughter regarding hospice placement. Prognosis remain very poor.
[2016-10-06] MEDS: THIAMINE HCL IV SCH ×4 (21:30)
[2016-10-06] MEDS: FOLIC ACID IV SCH ×4 (21:30)
[2016-10-06] MEDS: WATER IV SCH ×4 (21:30)
[2016-10-06] MEDS: DEXTROSE 5% IV SCH ×4 (21:30)
[2016-10-06] MEDS: [UNRECOGNIZED DRUG - OTHER] IV SCH ×4 (21:30)
[2016-10-07] MEDS: MORPHINE SULFATE 10 MG/ML INJ IV PRN ×5 (00:30→22:53)
[2016-10-07] MEDS: PIPERACILLIN SODIUM/TAZOBACTAM 2.25 GM in NORMAL SALINE 50 ML IV SCH ×3 (01:56→18:15)
[2016-10-07] MEDS: VANCOMYCIN HCL 500 MG in DEXTROSE 5%-WATER 100 ML IV SCH (09:00)
[2016-10-07 09:26] LABS: CREATININE RESULT 2.08 mg/dL (0.52-1.25)
[2016-10-07] MEDS: FAMOTIDINE INJ/PF 20 MG/2 ML SDV IV SCH ×2 (10:18→22:53)
[2016-10-07] MEDS: COLLAGENASE CLOSTRIDIUM HIST. OINT 30 GM TP SCH (10:25)
[2016-10-07] MEDS: DEXTROSE 5%-WATER 1000 ML 1,000 ML IV PRN (14:03)
--- NOTE | 2016-10-07 15:33 | PDOC PROGRESS REPORT ---
Subjective Progress Note for:: 10/07/16 Subjective:: Remain nonverbal. There reported low grade fever. Remain on IV Cefepime and Vancomycin coverage. Remain NPO and on DNR status. rn clinical documentation specialist rhythm remain in atrial fibrillation with slightly improved ventricular rate. Patient remain on IV fluid support. Physical Exam Vital Signs: Temp Pulse Resp BP Pulse Ox 100.0 F 118 H 36 H 133/42 H 84 L 10/07/16 03:13 10/07/16 07:00 10/07/16 03:13 10/07/16 03:13 10/07/16 03:13 Intake & Output 10/06/16 10/07/16 10/08/16 06:59 06:59 06:59 Intake Total 1300 1200 Output Total 1385 675 Balance -85 525 Physical Exam: General appearance: PRESENT: mild distress - remain on Venturi mask supplemental oxygen Head exam: PRESENT: atraumatic, normocephalic Eye exam: PRESENT: PERRLA Mouth exam: PRESENT: dry mucosa Respiratory exam: PRESENT: decreased breath sounds - at lung bases Cardiovascular exam: PRESENT: irregular rhythm, tachycardia Vascular exam: ABSENT: pallor GI/Abdominal exam: PRESENT: normal bowel sounds, soft. ABSENT: distended, guarding, mass, organomegaly, rebound, tenderness Neurological exam: PRESENT: altered - lethargic. Skin exam: PRESENT: dry, warm, other - s/p sacral pressure ulcer debridement Results Laboratory Results: 10/05/16 23:12 10/07/16 08:18 10/07/16 08:18 Creatinine 2.08 H Est GFR ( Amer) 37 L Est GFR (Non-Af Amer) 30 L Impressions: Chest X-Ray 10/03/16 20:03 IMPRESSION: NO ACUTE RADIOGRAPHIC FINDING IN THE CHEST. Assessment & Plan - Diagnosis (1) Septic shock Is this a current diagnosis for this admission?: Yes (2) Aspiration pneumonia Qualifiers: Aspiration pneumonia type: due to regurgitated food Laterality: unspecified laterality Is this a current diagnosis for this admission?: Yes (3) UTI (urinary tract infection) Qualifiers: Urinary tract infection type: acute cystitis Hematuria presence: without hematuria Qualified Code(s): N30.00 - Acute cystitis without hematuria Is this a current diagnosis for this admission?: Yes (4) Pressure ulcer of buttock, unstageable Qualifiers: Laterality: left Qualified Code(s): L89.320 - Pressure ulcer of left buttock, unstageable Is this a current diagnosis for this admission?: Yes (5) ADITI (acute kidney injury) Is this a current diagnosis for this admission?: Yes (6) Hypernatremia Is this a current diagnosis for this admission?: Yes (7) Adult failure to thrive syndrome Is this a current diagnosis for this admission?: Yes (8) Dementia, multi-infarct Qualifiers: Dementia behavioral disturbance: without behavioral disturbance Qualified Code(s): F01.50 - Vascular dementia without behavioral disturbance Is this a current diagnosis for this admission?: Yes (9) Dysphagia, oral phase Is this a current diagnosis for this admission?: Yes (10) HTN (hypertension) Qualifiers: Hypertension type: essential hypertension Qualified Code(s): I10 - Essential (primary) hypertension Is this a current diagnosis for this admission?: Yes (11) 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 (myocardial infarction) Is this a current diagnosis for this admission?: Yes - Time Time Spent with patient: 25-34 minutes Medications reviewed and adjusted accordingly: Yes Anticipated discharge: Hospice Within: Other - Inpatient Certification Based on my medical assessment, after consideration of the patient's comorbidities, presenting symptoms, or acuity I expect that the services needed warrant INPATIENT care.: Yes I certify that my determination is in accordance with my understanding of Medicare's requirements for reasonable and necessary INPATIENT services [42 CFR 412.3e].: Yes Medical Necessity: Need Close Monitoring Due to Risk of Patient Decompensation, Need For IV Fluids, Need For Continuous Telemetry Monitoring, Need for IV Antibiotics, Risk of Complication if Not Cared For in Hospital Post Hospital Care: D/C Uniform Attendant Documentation - Plan Summary Plan Summary: Continue IV Cefepime and Vancomycin coverage. Follow up on blood culture findings. Overall prognosis remain poor. We will continue discussion on hospice placement. process planner input and connection with [facility] hospice program appreciated.
[2016-10-07] MEDS: THIAMINE HCL IV SCH ×4 (22:53)
[2016-10-07] MEDS: WATER IV SCH ×4 (22:53)
[2016-10-07] MEDS: [UNRECOGNIZED DRUG - OTHER] IV SCH ×4 (22:53)
[2016-10-07] MEDS: FOLIC ACID IV SCH ×4 (22:53)
[2016-10-07] MEDS: DEXTROSE 5% IV SCH ×4 (22:53)
[2016-10-08] MEDS: PIPERACILLIN SODIUM/TAZOBACTAM 2.25 GM in NORMAL SALINE 50 ML IV SCH ×2 (02:45→10:26)
[2016-10-08] MEDS: MORPHINE SULFATE 10 MG/ML INJ IV PRN ×5 (05:26→23:12)
[2016-10-08] MEDS: VANCOMYCIN HCL 500 MG in DEXTROSE 5%-WATER 100 ML IV SCH (08:54)
[2016-10-08] MEDS: FAMOTIDINE INJ/PF 20 MG/2 ML SDV IV SCH (10:26)
[2016-10-08] MEDS: COLLAGENASE CLOSTRIDIUM HIST. OINT 30 GM TP SCH (10:27)
--- NOTE | 2016-10-08 10:35 | PDOC PROGRESS REPORT ---
Subjective Progress Note for:: 10/08/16 Subjective:: Patient's currently on a nonrebreather. Patient still a mild respiratory distress currently pretty much more tablets the comfort care. Patient's still have a very poor prognosis discussed with the family and the bedside discussed about the comfort care Physical Exam Vital Signs: Temp Pulse Resp BP Pulse Ox 98.1 F 109 H 28 H 118/41 L 93 10/08/16 07:24 10/08/16 07:24 10/08/16 07:24 10/08/16 07:24 10/08/16 07:24 Intake & Output 10/07/16 10/08/16 10/09/16 06:59 06:59 06:59 Intake Total 1200 1800 Output Total 675 1350 Balance 525 450 Weight 54.4 kg General appearance: PRESENT: mild distress Eye exam: PRESENT: PERRLA Neck exam: PRESENT: JVD Respiratory exam: PRESENT: decreased breath sounds Cardiovascular exam: PRESENT: +S1, +S2 GI/Abdominal exam: PRESENT: normal bowel sounds, soft Neurological exam: PRESENT: altered Skin exam: PRESENT: dry Results Laboratory Results: 10/05/16 23:12 10/07/16 08:18 Impressions: Chest X-Ray 10/03/16 20:03 IMPRESSION: NO ACUTE RADIOGRAPHIC FINDING IN THE CHEST. Assessment & Plan - Diagnosis (1) Septic shock Is this a current diagnosis for this admission?: Yes Plan: Patient is currently on IV cefepime and vancomycin (2) Severe sepsis Is this a current diagnosis for this admission?: Yes (3) Acute renal failure Qualifiers: Acute renal failure type: unspecified Qualified Code(s): N17.9 - Acute kidney failure, unspecified Is this a current diagnosis for this admission?: Yes (4) CAD (coronary artery disease) Qualifiers: Coronary Disease-Associated Artery/Lesion type: [place] artery Associated angina: without angina Is this a current diagnosis for this admission?: Yes (5) Dementia, multi-infarct Qualifiers: Dementia behavioral disturbance: without behavioral disturbance Qualified Code(s): F01.50 - Vascular dementia without behavioral disturbance Is this a current diagnosis for this admission?: Yes (6) HTN (hypertension) Qualifiers: Hypertension type: essential hypertension Qualified Code(s): I10 - Essential (primary) hypertension Is this a current diagnosis for this admission?: Yes (7) Hypernatremia Is this a current diagnosis for this admission?: Yes (8) Respiratory distress Is this a current diagnosis for this admission?: Yes Plan: With the current multiple issues currently on nonrebreather currently patient is a DNR/DNI - Time Time Spent with patient: 15-24 minutes Medications reviewed and adjusted accordingly: Yes Anticipated discharge: Hospice Within: Other - Inpatient Certification Medical Necessity: Significant Comorbidiites Make Outpatient Treatment Too Risky Post Hospital Care: D/C Fuel Quality Tech Documentation - Plan Summary Plan Summary: Discussed with the family about the patient's current conditions with a very poor prognosis discussed about the comfort care measure and the family will discuss with and decide later
[2016-10-08] MEDS: ATROPINE SULFATE 1% OPH SOLN 5 ML BOTTLE SL PRN (12:11)
[2016-10-08 12:25] VITALS: BP 111/47
[2016-10-08] MEDS: ONDANSETRON HCL INJ/PF 4 MG/2 ML SDV IV PRN ×2 (14:33→23:11)
[2016-10-09] MEDS: MORPHINE SULFATE 10 MG/ML INJ IV PRN ×4 (06:07→19:54)
[2016-10-09] MEDS: ONDANSETRON HCL INJ/PF 4 MG/2 ML SDV IV PRN ×2 (06:08→19:54)
--- NOTE | 2016-10-09 09:36 | PDOC PROGRESS REPORT ---
Subjective Progress Note for:: 10/09/16 Subjective:: Patient's currently on a nonrebreather. Patient still a mild respiratory distress currently pretty much more tablets the comfort care. Patient's still have a very poor prognosis discussed with the family and the bedside discussed about the comfort care Physical Exam Vital Signs: Temp Pulse Resp BP Pulse Ox 98.5 F 106 H 40 H 111/47 L 87 L 10/08/16 11:24 10/09/16 02:00 10/08/16 11:24 10/08/16 11:24 10/08/16 11:24 Intake & Output 10/08/16 10/09/16 10/10/16 06:59 06:59 06:59 Intake Total 1800 106 Output Total 1350 425 Balance 450 -319 Weight 54.4 kg 54.2 kg General appearance: PRESENT: mild distress Eye exam: PRESENT: PERRLA Mouth exam: PRESENT: dry mucosa Respiratory exam: PRESENT: decreased breath sounds Cardiovascular exam: PRESENT: +S1, +S2 GI/Abdominal exam: PRESENT: normal bowel sounds, soft Neurological exam: PRESENT: altered Results Laboratory Results: 10/05/16 23:12 10/07/16 08:18 Impressions: Chest X-Ray 10/03/16 20:03 IMPRESSION: NO ACUTE RADIOGRAPHIC FINDING IN THE CHEST. Assessment & Plan - Diagnosis (1) Septic shock Is this a current diagnosis for this admission?: Yes Plan: Patient is currently on IV cefepime and vancomycin (2) Severe sepsis Is this a current diagnosis for this admission?: Yes (3) Acute renal failure Qualifiers: Acute renal failure type: unspecified Qualified Code(s): N17.9 - Acute kidney failure, unspecified Is this a current diagnosis for this admission?: Yes (4) CAD (coronary artery disease) Qualifiers: Coronary Disease-Associated Artery/Lesion type: [place] artery Associated angina: without angina Is this a current diagnosis for this admission?: Yes (5) Dementia, multi-infarct Qualifiers: Dementia behavioral disturbance: without behavioral disturbance Qualified Code(s): F01.50 - Vascular dementia without behavioral disturbance Is this a current diagnosis for this admission?: Yes (6) HTN (hypertension) Qualifiers: Hypertension type: essential hypertension Qualified Code(s): I10 - Essential (primary) hypertension Is this a current diagnosis for this admission?: Yes (7) Hypernatremia Is this a current diagnosis for this admission?: Yes (8) Respiratory distress Is this a current diagnosis for this admission?: Yes Plan: With the current multiple issues currently on nonrebreather currently patient is a DNR/DNI - Time Time Spent with patient: Less than 15 minutes Medications reviewed and adjusted accordingly: Yes Anticipated discharge: Hospice - Inpatient Certification Medical Necessity: Significant Comorbidiites Make Outpatient Treatment Too Risky Post Hospital Care: D/C Organizational Psychologist Documentation - Plan Summary Plan Summary: d/w family
[2016-10-10] MEDS: MORPHINE SULFATE 10 MG/ML INJ IV PRN ×6 (00:09→22:16)
[2016-10-10] MEDS: ONDANSETRON HCL INJ/PF 4 MG/2 ML SDV IV PRN (04:06)
--- NOTE | 2016-10-10 18:27 | PDOC PROGRESS REPORT ---
Subjective Progress Note for:: 10/10/16 Subjective:: Remain NPO and on DNR status. He is currently on comfort care measures. desk monitor rhythm remain in sinus tachycardia. Physical Exam Vital Signs: Temp Pulse Resp BP Pulse Ox 98.5 F 104 H 40 H 111/47 L 87 L 10/08/16 11:24 10/10/16 14:00 10/08/16 11:24 10/08/16 11:24 10/08/16 11:24 Intake & Output 10/09/16 10/10/16 10/11/16 06:59 06:59 06:59 Intake Total 106 100 Output Total 425 35 Balance -319 65 Weight 54.2 kg Physical Exam: General appearance: PRESENT: mild distress - remain on Venturi mask supplemental oxygen Head exam: PRESENT: atraumatic, normocephalic Eye exam: PRESENT: PERRLA sluggishly Mouth exam: PRESENT: dry mucosa Respiratory exam: PRESENT: decreased breath sounds - at lung bases Cardiovascular exam: PRESENT: rhythm tachycardia, normal S1 and S2 GI/Abdominal exam: PRESENT: normal bowel sounds, soft. ABSENT: distended, guarding, mass, organomegaly, rebound, tenderness Neurological exam: PRESENT: altered - lethargic. Skin exam: PRESENT: dry, warm, other - s/p sacral pressure ulcer debridement Results Laboratory Results: 10/05/16 23:12 10/07/16 08:18 Impressions: Chest X-Ray 10/03/16 20:03 IMPRESSION: NO ACUTE RADIOGRAPHIC FINDING IN THE CHEST. Assessment & Plan - Diagnosis (1) Septic shock Is this a current diagnosis for this admission?: Yes (2) Aspiration pneumonia Qualifiers: Aspiration pneumonia type: due to regurgitated food Laterality: unspecified laterality Is this a current diagnosis for this admission?: Yes (3) UTI (urinary tract infection) Qualifiers: Urinary tract infection type: acute cystitis Hematuria presence: without hematuria Qualified Code(s): N30.00 - Acute cystitis without hematuria Is this a current diagnosis for this admission?: Yes (4) Pressure ulcer of buttock, unstageable Qualifiers: Laterality: left Qualified Code(s): L89.320 - Pressure ulcer of left buttock, unstageable Is this a current diagnosis for this admission?: Yes (5) ADITI (acute kidney injury) Is this a current diagnosis for this admission?: Yes (6) Hypernatremia Is this a current diagnosis for this admission?: Yes (7) Adult failure to thrive syndrome Is this a current diagnosis for this admission?: Yes (8) Dementia, multi-infarct Qualifiers: Dementia behavioral disturbance: without behavioral disturbance Qualified Code(s): F01.50 - Vascular dementia without behavioral disturbance Is this a current diagnosis for this admission?: Yes (9) Dysphagia, oral phase Is this a current diagnosis for this admission?: Yes (10) HTN (hypertension) Qualifiers: Hypertension type: essential hypertension Qualified Code(s): I10 - Essential (primary) hypertension Is this a current diagnosis for this admission?: Yes (11) Old [place] (myocardial infarction) Is this a current diagnosis for this admission?: Yes - Time Time Spent with patient: 25-34 minutes Medications reviewed and adjusted accordingly: Yes Anticipated discharge: Hospice - I discussed extensivly with son at bedside regarding care plan. - Inpatient Certification Based on my medical assessment, after consideration of the patient's comorbidities, presenting symptoms, or acuity I expect that the services needed warrant INPATIENT care.: Yes I certify that my determination is in accordance with my understanding of Medicare's requirements for reasonable and necessary INPATIENT services [42 CFR 412.3e].: Yes Medical Necessity: Need Close Monitoring Due to Risk of Patient Decompensation, Need For Continuous Telemetry Monitoring, Risk of Complication if Not Cared For in Hospital Post Hospital Care: D/C Concrete Rod Buster Documentation - Plan Summary Plan Summary: Maintain on comfort measures. I will discontinue telemetry monitoring. I discussed issue of admission to hospice program but due to expected short course patient's son is requesting to keep in hospital for next 48 hours.
[2016-10-11] MEDS ORDERED: MORPHINE SULFATE 10 MG/ML INJ IV PRN (03:04)
[2016-10-11] MEDS: MORPHINE SULFATE 10 MG/ML INJ IV PRN ×4 (06:25→22:45)
--- NOTE | 2016-10-11 18:31 | PDOC PROGRESS REPORT ---
Subjective Progress Note for:: 10/11/16 Subjective:: Remain NPO and on DNR status. He is currently on comfort care measures. Daughter at bedside. Physical Exam Vital Signs: Temp Pulse Resp BP Pulse Ox 98.5 F 104 H 40 H 111/47 L 87 L 10/08/16 11:24 10/10/16 14:00 10/08/16 11:24 10/08/16 11:24 10/08/16 11:24 Intake & Output 10/10/16 10/11/16 10/12/16 06:59 06:59 06:59 Intake Total 100 25 8 Output Total 35 115 30 Balance 65 -90 -22 Physical Exam: General appearance: PRESENT: mild distress - remain on Venturi mask supplemental oxygen Head exam: PRESENT: atraumatic, normocephalic Eye exam: PRESENT: PERRLA sluggishly Mouth exam: PRESENT: dry mucosa Respiratory exam: PRESENT: decreased breath sounds - at lung bases Cardiovascular exam: PRESENT: rhythm tachycardia, normal S1 and S2 GI/Abdominal exam: PRESENT: normal bowel sounds, soft. ABSENT: distended, guarding, mass, organomegaly, rebound, tenderness Neurological exam: PRESENT: altered - lethargic. Skin exam: PRESENT: dry, warm, other - s/p sacral pressure ulcer debridement Results Laboratory Results: 10/05/16 23:12 10/07/16 08:18 Impressions: Chest X-Ray 10/03/16 20:03 IMPRESSION: NO ACUTE RADIOGRAPHIC FINDING IN THE CHEST. Assessment & Plan - Diagnosis (1) Septic shock Is this a current diagnosis for this admission?: Yes (2) Aspiration pneumonia Qualifiers: Aspiration pneumonia type: due to regurgitated food Laterality: unspecified laterality Is this a current diagnosis for this admission?: Yes (3) UTI (urinary tract infection) Qualifiers: Urinary tract infection type: acute cystitis Hematuria presence: without hematuria Qualified Code(s): N30.00 - Acute cystitis without hematuria Is this a current diagnosis for this admission?: Yes (4) Pressure ulcer of buttock, unstageable Qualifiers: Laterality: left Qualified Code(s): L89.320 - Pressure ulcer of left buttock, unstageable Is this a current diagnosis for this admission?: Yes (5) ADITI (acute kidney injury) Is this a current diagnosis for this admission?: Yes (6) Hypernatremia Is this a current diagnosis for this admission?: Yes (7) Adult failure to thrive syndrome Is this a current diagnosis for this admission?: Yes (8) Dementia, multi-infarct Qualifiers: Dementia behavioral disturbance: without behavioral disturbance Qualified Code(s): F01.50 - Vascular dementia without behavioral disturbance Is this a current diagnosis for this admission?: Yes (9) Dysphagia, oral phase Is this a current diagnosis for this admission?: Yes (10) HTN (hypertension) Qualifiers: Hypertension type: essential hypertension Qualified Code(s): I10 - Essential (primary) hypertension Is this a current diagnosis for this admission?: Yes (11) Old [place] (myocardial infarction) Is this a current diagnosis for this admission?: Yes - Time Time Spent with patient: 25-34 minutes Medications reviewed and adjusted accordingly: Yes Anticipated discharge: Hospice Within: Other - Inpatient Certification Based on my medical assessment, after consideration of the patient's comorbidities, presenting symptoms, or acuity I expect that the services needed warrant INPATIENT care.: Yes I certify that my determination is in accordance with my understanding of Medicare's requirements for reasonable and necessary INPATIENT services [42 CFR 412.3e].: Yes Medical Necessity: Need for Pain Control, Risk of Complication if Not Cared For in Hospital Post Hospital Care: D/C Manager Of Security Documentation - Plan Summary Plan Summary: Continue current medication management and comfort support. Prognosis remain decimal with expected time of in the next 24 hours.
--- NOTE | 2016-10-12 21:24 | Death Summary ---
Summary Date : 10/12/16 - 0420 HR. Autopsy: No Resuscitation Status: Comfort Measures Only - Final Diagnosis (1) Septic shock Is this a current diagnosis for this admission?: Yes (2) Aspiration pneumonia Is this a current diagnosis for this admission?: Yes (3) UTI (urinary tract infection) Is this a current diagnosis for this admission?: Yes (4) Pressure ulcer of buttock, unstageable Is this a current diagnosis for this admission?: Yes (5) ADITI (acute kidney injury) Is this a current diagnosis for this admission?: Yes (6) Hypernatremia Is this a current diagnosis for this admission?: Yes (7) Adult failure to thrive syndrome Is this a current diagnosis for this admission?: Yes (8) Dementia, multi-infarct Is this a current diagnosis for this admission?: Yes (9) Dysphagia, oral phase Is this a current diagnosis for this admission?: Yes (10) HTN (hypertension) Is this a current diagnosis for this admission?: Yes (11) Old AR (myocardial infarction) Is this a current diagnosis for this admission?: Yes Hospital Course:: Patient was managed with IV fluid and IV antibiotic upon presentation. He was seen in consultation by surgicalist for sacral region pressure ulcer with debridement. He had episodes of aspiration and remain with high aspiration risk necessitating NPO status during hospital stay. His urine culture did grew poe sensitive staphylococcus aureus. His blood culture was no growth x 5 days. Patient was made a comfort care only level by family about 96 hours prior to his demise. He at 0420hour this morning.
== END 2016-10-12 04:20 | disposition expired | DRG 853 ==
LOC: ER 19:59 → EH 22:13 → UNDOADMIN 22:13 → EH 10-04 01:00 → 5 10-04 01:00
PROVIDERS: ADMIT Internal Medicine Geriatric Medicine; ATTEND Internal Medicine Geriatric Medicine
PROC: 0KBP0ZZ Excision of Left Hip Muscle, Open Approach (ICD-10-PCS; principal; 2016-10-04)
PROC: 5A09357 Assistance with Respiratory Ventilation, Less than 24 Consecutive Hours, Continuous Positive Airway Pressure (ICD-10-PCS; 2016-10-04)
DX: A41.9 Sepsis, unspecified organism (principal); R65.21 Severe sepsis with septic shock; J69.0 Pneumonitis due to inhalation of food and vomit; N17.9 Acute kidney failure, unspecified; Z66 Do not resuscitate; E87.0 Hyperosmolality and hypernatremia; N30.00 Acute cystitis without hematuria; B95.61 Methicillin susceptible Staphylococcus aureus infection as the cause of diseases classified elsewhere; L89.300 Pressure ulcer of unspecified buttock, unstageable; L89.150 Pressure ulcer of sacral region, unstageable; E86.0 Dehydration; R13.11 Dysphagia, oral phase; I48.91 Unspecified atrial fibrillation; R09.02 Hypoxemia; R62.7 Adult failure to thrive; E11.9 Type 2 diabetes mellitus without complications; I10 Essential (primary) hypertension; E78.5 Hyperlipidemia, unspecified; F01.50 Vascular dementia, unspecified severity, without behavioral disturbance, psychotic disturbance, mood disturbance, and anxiety; Z79.82 Long term (current) use of aspirin; Z79.899 Other long term (current) drug therapy; I25.2 Old myocardial infarction; Z88.8 Allergy status to other drugs, medicaments and biological substances
CPT/HCPCS: 36415; 71010; 80053; 80202; 81001; 82565; 82803; 82962; 83605; 85025; 85610; 85730; 87040; 87086; 87088; 87186; 93005; 93010; 94660; 96361; 96365; 96375; 99291; J1160; J2270; J2405; J2543; J3370; J3411; J3490; J7030; J7060; S0028